=== PATIENT | female | born 1985 | race Caucasian/White ===

== ENCOUNTER 2018-05-26 11:12 | Emergency (ER) | payer MEDICARE, MEDICAID ==
[~2018-05-26] VITALS: Ht 162.6 cm; Wt 158.8 kg
[~2018-05-26 11:12] MED LIST: ALPR2TAB6 PO; ATOR40TA70 PO; BUSP15TA60 PO; FENT1PAT9 TD; HYDR-3820 PO; LOSA1TAB23 PO; MIRT15TA6 PO; NAPR-915 PO; OMEP20TA7 PO; OXYC-471 PO; PARO20TA5 PO; PARO30TA3 PO; PREG300C PO; PROM50SU10 RC; ROPI0.5T2 PO; SCOP1PAT11 TD; SITA100T12 PO; WARF10TA44 PO; WARF1TAB82 PO; ZOLP10TA5 PO
--- OUTSIDE RECORDS SUMMARY | 2018-05-26 11:17 | XMS REPORT | Continuity of Care Document ---
Author Author [facility] Organization [facility] Address Unknown Phone Unavailable Allergies Active Description Code Type Severity Reaction Onset Reported/Identified Relationship to Patient Clinical Status Yes metformin [id number] Drug Allergy Unknown N/A 08/21/2015 Yes spironolactone [id number] Drug Allergy Unknown N/A 08/21/2015 Medications There is no data. Problems Date Dx Coded Attending Type Code Diagnosis Diagnosed By 08/21/2015 MUNA LINK DO Ot E11.9 TYPE 2 DIABETES MELLITUS WITHOUT COMPLIC 08/21/2015 MUNA LINK DO Ot F12.10 CANNABIS ABUSE, UNCOMPLICATED 08/21/2015 MUNA LINK DO Ot F17.210 NICOTINE DEPENDENCE, CIGARETTES, UNCOMPL 08/21/2015 MUNA LINK DO Ot F19.10 OTHER PSYCHOACTIVE SUBSTANCE ABUSE, UNCO 08/21/2015 MUNA LINK DO Ot I10 ESSENTIAL (PRIMARY) HYPERTENSION 08/21/2015 MUNA LINK DO Ot K76.0 FATTY (CHANGE OF) LIVER, NOT ELSEWHERE C 08/21/2015 MUNA LINK DO Ot R10.13 EPIGASTRIC PAIN 08/21/2015 MUNA LINK DO Ot R11.2 NAUSEA WITH VOMITING, UNSPECIFIED 08/21/2015 MUNA LINK DO Ot R16.1 SPLENOMEGALY, NOT ELSEWHERE CLASSIFIED Procedures There is no data. Results There is no data. Encounters ACCT No. Visit Date/Time Discharge Status Pt. Type Provider Facility Loc./Unit Complaint [id number] 08/21/2015 19:55:00 08/21/2015 22:59:00 DIS Emergency MUNA LINK DO [facility] ER
--- NOTE | 2018-05-26 11:23 | ED Chest Pain ---
General Chief Complaint: Neurological Problems Stated Complaint: SEIZURE Source: patient, EMS Exam Limitations: no limitations History of Present Illness Date Seen by Provider: May 26, 2018 Time Seen by Provider: 11:19 Initial Comments Patient is a 32-year-old female who is brought into the emergency room by [facility] for reports of a possible seizure. She ambulated from the EMS truck into the exam room without difficulty. She reports she is feeling fine at this time but around 9:30 this morning she started to have some shortness of breath and substernal chest pain while watching [employer] videos, she denies that the chest pain radiated anywhere. She reports that she felt tingling and static in her fingers and in her face prior to this episode but still has the symptoms on arrival. She reports that the chest pain and shortness of breath has resolved. The patient's family reports that they thought she was having a seizure because her hands were shaking. She reports that she has a long history of anxiety and believes this was a panic attack. Timing/Duration: 1-3 hours Location: substernal, central Allergies and Home Medications Allergies Coded Allergies: metformin (Verified Allergy, Unknown, 08/21/15) spironolactone (Verified Allergy, Unknown, 08/21/15) Home Medications Alprazolam 2 Mg Tablet, 2 MG PO Q6H PRN for ANXIETY, (Reported) Atorvastatin Calcium 40 Mg Tablet, 40 MG PO DAILY, (Reported) Buspirone HCl 15 Mg Tablet, 15 MG PO TID, (Reported) Fentanyl 1 Each Patch.td72, 50 MCG TD Q72H, (Reported) Hydrocodone/Acetaminophen 1 Each Tablet, 1 EACH PO Q6H, (Reported) Losartan/Hydrochlorothiazide 1 Each Tablet, 1 EACH PO DAILY, (Reported) Mirtazapine 15 Mg Tablet, 15 MG PO HS, (Reported) Naproxen 500 Mg Tablet, 500 MG PO BID, (Reported) Omeprazole 20 Mg Tablet.dr, 20 MG PO BID, (Reported) Oxycodone HCl/Acetaminophen 1 Each Tablet, 1 EACH PO Q6H, (Reported) Paroxetine HCl 30 Mg Tablet, 30 MG PO DAILY, (Reported) Paroxetine HCl 20 Mg Tablet, 20 MG PO DAILY, (Reported) Pregabalin 300 Mg Capsule, 300 MG PO Q12H, (Reported) Promethazine HCl 50 Mg Supp.rect, 50 MG RC Q4H Prescribed by: MUNA LINK on 08/21/152217 Ropinirole HCl 0.5 Mg Tablet, 0.5 MG PO Q8H, (Reported) Scopolamine 1 Each Patch.td72, 1 EACH TD Q72 HOURS Prescribed by: MUNA LINK on 08/21/152217 Sitagliptin Phosphate 100 Mg Tablet, 100 MG PO DAILY, (Reported) Warfarin Sodium 10 Mg Tablet, 10 MG PO DAILY, (Reported) Warfarin Sodium 1 Mg Tablet, 3 MG PO DAILY, (Reported) Zolpidem Tartrate 10 Mg Tablet, 10 MG PO HS PRN for INSOMNIA, (Reported) Patient Home Medication List Home Medication List Reviewed: Yes Review of Systems Review of Systems Constitutional: no symptoms reported, see HPI Respiratory: See HPI, Shortness of Air Cardiovascular: See HPI, Chest Pain Psychiatric/Neurological: See HPI, Tingling (hands bilat and lips) All Other Systems Reviewed Negative Unless Noted: Yes Past Akgembc-Emipdv-Ixhvax Hx Past Med/Social Hx: Reviewed Nursing Past Med/Soc Hx Past Medical History Gallbladder Pulmonary Embolism High Cholesterol, Hypertension Stroke Reproductive Disorders: Yes Female Reproductive Disorders: Endometriosis, Polycystic Ovarian Dis Gastroesophageal Reflux, Ulcer Fibromyalgia Diabetes, Insulin dep Anxiety, ODD, Depression Adverse Reaction/Blood Tranf: No Family Medical History Reviewed Nursing Family Hx Physical Exam Vital Signs Vital Signs - First Documented Capillary Refill : Height, Weight, BMI Height: 5'5" Weight: 420lbs. oz. 190.853648tm; 69.88 BMI Method:Stated General Appearance: No Apparent Distress, WD/WN, Anxious HEENT: PERRL/EOMI, TMs Normal, Normal ENT Inspection, Pharynx Normal Neck: Full Range of Motion, Normal Inspection, Non Tender Respiratory: Chest Non Tender, Lungs Clear, Normal Breath Sounds, No Accessory Muscle Use, No Respiratory Distress Cardiovascular: Regular Rate, Rhythm, No Edema, No Gallop, No JVD, No Murmur, Normal Peripheral Pulses Gastrointestinal: Normal Bowel Sounds, No Organomegaly, No Pulsatile Mass, Non Tender, Soft Neurologic/Psychiatric: Alert, Oriented x3, Normal Mood/Affect Skin: Normal Color, Warm/Dry Progress/Results/Core Measures Results/Orders Lab Results Laboratory Tests Test 05/26/18 11:38 05/26/18 13:13 Range/Units White Blood Count 9.4 4.3-11.0 10^3/uL Red Blood Count 5.31 4.35-5.85 10^6/uL Hemoglobin 13.1 11.5-16.0 G/DL Hematocrit 41 35-52 % Mean Corpuscular Volume 76 L 80-99 FL Mean Corpuscular Hemoglobin 25 25-34 PG Mean Corpuscular Hemoglobin Concent 32 32-36 G/DL Red Cell Distribution Width 18.5 H 10.0-14.5 % Platelet Count 327 130-400 10^3/uL Mean Platelet Volume 9.2 7.4-10.4 FL Neutrophils (%) (Auto) 60 42-75 % Lymphocytes (%) (Auto) 31 12-44 % Monocytes (%) (Auto) 5 0-12 % Eosinophils (%) (Auto) 4 0-10 % Basophils (%) (Auto) 0 0-10 % Neutrophils # (Auto) 5.6 1.8-7.8 X 10^3 Lymphocytes # (Auto) 2.9 1.0-4.0 X 10^3 Monocytes # (Auto) 0.5 0.0-1.0 X 10^3 Eosinophils # (Auto) 0.4 H 0.0-0.3 10^3/uL Basophils # (Auto) 0.0 0.0-0.1 10^3/uL Prothrombin Time 13.0 12.2-14.7 SEC INR Comment 1.0 0.8-1.4 Activated Partial Thromboplast Time 25 24-35 SEC Sodium Level 142 135-145 MMOL/L Potassium Level 3.9 3.6-5.0 MMOL/L Chloride Level 105 98-107 MMOL/L Carbon Dioxide Level 25 21-32 MMOL/L Anion Gap 12 5-14 MMOL/L Blood Urea Nitrogen 14 7-18 MG/DL Creatinine 0.97 0.60-1.30 MG/DL Estimat Glomerular Filtration Rate > 60 BUN/Creatinine Ratio 14 Glucose Level 212 H 70-105 MG/DL Calcium Level 8.9 8.5-10.1 MG/DL Corrected Calcium 9.0 8.5-10.1 MG/DL Magnesium Level 1.8 1.8-2.4 MG/DL Total Bilirubin 0.5 0.1-1.0 MG/DL Aspartate Amino Transf (AST/SGOT) 14 5-34 U/L Alanine Aminotransferase (ALT/SGPT) 17 0-55 U/L Alkaline Phosphatase 67 40-136 U/L Myoglobin 63.1 10.0-92.0 NG/ML Troponin I < 0.30 < 0.30 <0.30 NG/ML Total Protein 6.9 6.4-8.2 GM/DL Albumin 3.9 3.2-4.5 GM/DL My Orders Orders - BERNHUMA,TODD Cbc With Automated Diff (05/26/18 11:23) Magnesium (05/26/18 11:23) Chest 1 View, Ap/Pa Only (05/26/18 11:23) Ekg Tracing (05/26/18 11:23) Cardiac Profile 1 (05/26/18 11:23) Comprehensive Metabolic Panel (05/26/18 11:23) Myoglobin Serum (05/26/18 11:23) Protime With Inr (05/26/18 11:23) Partial Thromboplastin Time (05/26/18 11:23) O2 (05/26/18 11:23) Monitor-Rhythm Ecg Trace Only (05/26/18 11:23) Saline Lock/Iv-Start (05/26/18 11:23) Aspirin Chewable Tablet (Baby Aspirin Ch (05/26/18 11:45) Aspirin Chewable Tablet (Baby Aspirin Ch (05/26/18 11:41) Troponin I (05/26/18 13:03) Medications Given in ED Vital Signs/I&O 05/26/18 05/26/18 05/26/18 11:16 11:16 14:39 Temp 98.3 98.5 Pulse 97 80 Resp 22 20 B/P (MAP) 128/52 (77) 122/97 (105) Pulse Ox 98 97 97 O2 Delivery Room Air Room Air Room Air Progress Progress Note : Time: 13:06 Progress Note I have seen and evaluated the patient. I will be repeating her troponin at this time, this will be 4 hours after the time of onset of chest pain.. She remains pain-free at this time and the tingling in her fingers have resolved. Initial ECG Impression Date: May 26, 2018 Initial ECG Impression Time: 11:33 Initial ECG Rate: 95 Initial ECG Rhythm: Normal Sinus Initial ECG Intervals: Normal Initial ECG Impression: Normal Diagnostic Imaging Diagonstic Imaging: Xray Plain Films/CT/US/NM/MRI: chest Comments [place], [place] NAME: GUS QUAN [facility] REC#: [id number] PT STATUS: REG ER : 1985 PHYSICIAN: TODD SCHMIDT ADMIT DATE: 05/26/18/ER Draft Date of Exam:05/26/18 CHEST 1 VIEW, AP/PA ONLY INDICATION: Seizure Frontal chest obtained at 1214 hrs pm, and compared with 08/21/2015. Heart is borderline in size. There is central vascular congestion. There is no focal infiltrate or pneumothorax or pleural fluid. IMPRESSION: Borderline heart size with central vascular congestion. No consolidation or pleural fluid. Dictated on workstation # [id number] Dict: 05/26/18 1223 Trans: 05/26/18 1226 [facility] [id number] Interpreted by: RENU WHITAKER MD Electronically signed by: Reviewed: Reviewed by Me Departure Impression Primary Impression: Anxiety Disposition: 01 HOME, SELF-CARE Condition: Stable/Unchanged Departure-Patient Inst. Decision time for Depature: 13:20 Referrals: NO,LOCAL PHYSICIAN (PCP) Primary Care Physician Patient Instructions: Generalized Anxiety Disorder Add. Discharge Instructions: Resume your home medications as previously prescribed. Follow-up with your primary care provider within 1 week for recheck. Return back to the emergency room for any worsening symptoms or concerns as needed. All discharge instructions reviewed with patient and/or family. Voiced understanding. TODD SCHMIDT May 26, 2018 11:23
[2018-05-26] MEDS ORDERED: ASPIRIN 81 MG CHEW (CHILDREN'S ASA) ONE (11:41)
[2018-05-26] MEDS ORDERED: ASPIRIN 81 MG CHEW (CHILDREN'S ASA) PO ONE (11:45)
[2018-05-26 11:48] LABS: BASOPHILS % (AUTO) 0 % (0-10); EOSINOPHILS # (AUTO) 0.4 10^3/uL (0.0-0.3); EOSINOPHILS % (AUTO) 4 % (0-10); HEMATOCRIT 41 % (35-52); HEMOGLOBIN 13.1 G/DL (11.5-16.0); LYMPHOCYTES # (AUTO) 2.9 X 10^3 (1.0-4.0); LYMPHOCYTES % (AUTO) 31 % (12-44); MEAN CORPUSCULAR HEMOGLOBIN 25 PG (25-34); MEAN CORPUSCULAR HGB CONC 32 G/DL (32-36); MEAN CORPUSCULAR VOLUME 76 FL (80-99); MEAN PLATELET VOLUME 9.2 FL (7.4-10.4); MONOCYTES # (AUTO) 0.5 X 10^3 (0.0-1.0); MONOCYTES % (AUTO) 5 % (0-12); NEUTROPHILS # (AUTO) 5.6 X 10^3 (1.8-7.8); NEUTROPHILS % (AUTO) 60 % (42-75); PLATELET COUNT 327 10^3/uL (130-400); RED BLOOD COUNT 5.31 10^6/uL (4.35-5.85); RED CELL DISTRIBUTION WIDTH 18.5 % (10.0-14.5); WHITE BLOOD COUNT 9.4 10^3/uL (4.3-11.0)
[2018-05-26 12:08] LABS: ALANINE AMINOTRANSFERASE 17 U/L (0-55); ALBUMIN 3.9 GM/DL (3.2-4.5); ALKALINE PHOSPHATASE 67 U/L (40-136); BILIRUBIN,TOTAL 0.5 MG/DL (0.1-1.0); BUN/CREATININE RATIO 14; CALCIUM 8.9 MG/DL (8.5-10.1); CARBON DIOXIDE 25 MMOL/L (21-32); CHLORIDE 105 MMOL/L (98-107); CREATININE SERUM 0.97 MG/DL (0.60-1.30); GFR ESTIMATED > 60; GLUCOSE 212 MG/DL (70-105); MAGNESIUM 1.8 MG/DL (1.8-2.4); POTASSIUM 3.9 MMOL/L (3.6-5.0); SODIUM 142 MMOL/L (135-145); TOTAL PROTEIN 6.9 GM/DL (6.4-8.2)
[2018-05-26 12:14] LABS: MYOGLOBIN SERUM 63.1 NG/ML (10.0-92.0)
--- NOTE | 2018-05-26 12:26 | Diagnostic Imaging Report ---
INDICATION: Seizure Frontal chest obtained at 1214 hrs pm, and compared with 08/21/2015. Heart is borderline in size. There is central vascular congestion. There is no focal infiltrate or pneumothorax or pleural fluid. IMPRESSION: Borderline heart size with central vascular congestion. No consolidation or pleural fluid. Dictated by: Dictated on workstation # [id number]
[2018-05-26 14:39] VITALS: BP 122/97
== END 2018-05-26 14:39 | disposition home or self-care (01) ==
LOC: EDUNIT# 11:12 → ER 11:14
DX: F41.9 Anxiety disorder, unspecified (principal); E78.00 Pure hypercholesterolemia, unspecified; I10 Essential (primary) hypertension; E11.9 Type 2 diabetes mellitus without complications; F32.9 Major depressive disorder, single episode, unspecified; F91.3 Oppositional defiant disorder; K21.9 Gastro-esophageal reflux disease without esophagitis; Z86.73 Personal history of transient ischemic attack (TIA), and cerebral infarction without residual deficits; Z88.8 Allergy status to other drugs, medicaments and biological substances; Z79.01 Long term (current) use of anticoagulants; Z86.711 Personal history of pulmonary embolism; Z87.19 Personal history of other diseases of the digestive system; Z87.448 Personal history of other diseases of urinary system
CPT/HCPCS: 36415; 71045; 80053; 83735; 83874; 84484; 85025; 85610; 85730; 93041

== ENCOUNTER 2018-06-03 10:05 | Emergency (ER) | payer MEDICARE, MEDICAID ==
[~2018-06-03] VITALS: Ht 165.1 cm; Wt 181.4 kg
--- NOTE | 2018-06-03 10:12 | ED Abdominal Pain ---
General Source of Information: Patient Exam Limitations: No Limitations History of Present Illness Date Seen by Provider: Jun 03, 2018 Time Seen by Provider: 10:10 Initial Comments To ER jed with reports of "severe gastroparesis and ulcers". She's had abdominal pain the left upper abdomen nausea and vomiting for the past 24 hours with reduced appetite. She reports a history of GERD, "ulcers", gastroparesis, chronic abdominal pain, fibromyalgia. She has oxycodone and morphine at home.She was unable to take her coumadin last night (history of PE). Severity/Quality: Moderate Location: LUQ Radiation: No Radiation Activities at Onset: None Associated Symptoms: Nausea/Vomiting Allergies and Home Medications Allergies Coded Allergies: metformin (Verified Allergy, Unknown, 08/21/15) spironolactone (Verified Allergy, Unknown, 08/21/15) Home Medications Alprazolam 2 Mg Tablet, 2 MG PO Q6H PRN for ANXIETY, (Reported) Atorvastatin Calcium 40 Mg Tablet, 40 MG PO DAILY, (Reported) Buspirone HCl 15 Mg Tablet, 15 MG PO TID, (Reported) Fentanyl 1 Each Patch.td72, 50 MCG TD Q72H, (Reported) Hydrocodone/Acetaminophen 1 Each Tablet, 1 EACH PO Q6H, (Reported) Losartan/Hydrochlorothiazide 1 Each Tablet, 1 EACH PO DAILY, (Reported) Mirtazapine 15 Mg Tablet, 15 MG PO HS, (Reported) Naproxen 500 Mg Tablet, 500 MG PO BID, (Reported) Omeprazole 20 Mg Tablet.dr, 20 MG PO BID, (Reported) Oxycodone HCl/Acetaminophen 1 Each Tablet, 1 EACH PO Q6H, (Reported) Paroxetine HCl 30 Mg Tablet, 30 MG PO DAILY, (Reported) Paroxetine HCl 20 Mg Tablet, 20 MG PO DAILY, (Reported) Pregabalin 300 Mg Capsule, 300 MG PO Q12H, (Reported) Prochlorperazine Maleate 25 Mg Supp.rect, 25 MG RC Q8H PRN for NAUSEA/VOMITING Prescribed by: JORGE THORNTON on 06/03/18 1148 Promethazine HCl 50 Mg Supp.rect, 50 MG RC Q4H Prescribed by: MUNA LINK on 08/21/158 Ropinirole HCl 0.5 Mg Tablet, 0.5 MG PO Q8H, (Reported) Scopolamine 1 Each Patch.td72, 1 EACH TD Q72 HOURS Prescribed by: MUNA LINK on 08/21/15 9808 Sitagliptin Phosphate 100 Mg Tablet, 100 MG PO DAILY, (Reported) Warfarin Sodium 10 Mg Tablet, 10 MG PO DAILY, (Reported) Warfarin Sodium 1 Mg Tablet, 3 MG PO DAILY, (Reported) Zolpidem Tartrate 10 Mg Tablet, 10 MG PO HS PRN for INSOMNIA, (Reported) Patient Home Medication List Home Medication List Reviewed: Yes Review of Systems Review of Systems Constitutional: see HPI EENTM: No Symptoms Reported Respiratory: No Symptoms Reported Cardiovascular: No Symptoms Reported Gastrointestinal: See HPI, Abdominal Pain, Nausea, Vomiting Genitourinary: No Symptoms Reported Musculoskeletal: no symptoms reported Skin: no symptoms reported Psychiatric/Neurological: No Symptoms Reported Endocrine: No Symptoms Reported Past Qkixbwe-Jynrdb-Wydfsa Hx Patient Social History 2nd Hand Smoke Exposure: No Past Medical History Gallbladder Pulmonary Embolism High Cholesterol, Hypertension Stroke Reproductive Disorders: Yes Female Reproductive Disorders: Endometriosis, Polycystic Ovarian Dis Gastroesophageal Reflux, Ulcer Fibromyalgia Diabetes, Insulin dep Anxiety, ODD, Depression Adverse Reaction/Blood Tranf: No Physical Exam Vital Signs Vital Signs - First Documented 06/03/18 10:20 Temp 98.5 Pulse 100 Resp 20 B/P (MAP) 142/119 (127) Pulse Ox 96 Capillary Refill : Height/Weight/BMI Height: 5'4.00" Weight: 350lbs. oz. 158.497332dd; 69.88 BMI Method:Stated General Appearance: WD/WN, moderate distress (moaning loudly on arrival, breathing rapidly. Insists that she is not out of her morphine or oxycodone, however K tracks would suggest that she has recently run out within the past 2- 3 days.), obese HEENT: PERRL/EOMI, normal ENT inspection Respiratory: no respiratory distress, no accessory muscle use Cardiovascular: no murmur, tachycardia Gastrointestinal: normal bowel sounds, soft, tenderness (left upper) Extremities: normal range of motion, non-tender Neurologic/Psychiatric: alert, normal mood/affect, oriented x 3 Skin: normal color, warm/dry Progress/Results/Core Measures Results/Orders Lab Results Laboratory Tests Test 06/03/18 10:15 06/03/18 11:17 Range/Units White Blood Count 12.5 H 4.3-11.0 10^3/uL Red Blood Count 6.00 H 4.35-5.85 10^6/uL Hemoglobin 14.4 11.5-16.0 G/DL Hematocrit 45 35-52 % Mean Corpuscular Volume 74 L 80-99 FL Mean Corpuscular Hemoglobin 24 L 25-34 PG Mean Corpuscular Hemoglobin Concent 32 32-36 G/DL Red Cell Distribution Width 19.1 H 10.0-14.5 % Platelet Count 483 H 130-400 10^3/uL Mean Platelet Volume 9.3 7.4-10.4 FL Neutrophils (%) (Auto) 71 42-75 % Lymphocytes (%) (Auto) 21 12-44 % Monocytes (%) (Auto) 5 0-12 % Eosinophils (%) (Auto) 3 0-10 % Basophils (%) (Auto) 0 0-10 % Neutrophils # (Auto) 8.9 H 1.8-7.8 X 10^3 Lymphocytes # (Auto) 2.6 1.0-4.0 X 10^3 Monocytes # (Auto) 0.6 0.0-1.0 X 10^3 Eosinophils # (Auto) 0.4 H 0.0-0.3 10^3/uL Basophils # (Auto) 0.0 0.0-0.1 10^3/uL Prothrombin Time 15.5 H 12.2-14.7 SEC INR Comment 1.2 0.8-1.4 Sodium Level 141 135-145 MMOL/L Potassium Level 4.1 3.6-5.0 MMOL/L Chloride Level 108 H 98-107 MMOL/L Carbon Dioxide Level 20 L 21-32 MMOL/L Anion Gap 13 5-14 MMOL/L Blood Urea Nitrogen 15 7-18 MG/DL Creatinine 0.79 0.60-1.30 MG/DL Estimat Glomerular Filtration Rate > 60 BUN/Creatinine Ratio 19 Glucose Level 236 H 70-105 MG/DL Calcium Level 9.6 8.5-10.1 MG/DL Corrected Calcium 9.4 8.5-10.1 MG/DL Total Bilirubin 0.9 0.1-1.0 MG/DL Aspartate Amino Transf (AST/SGOT) 17 5-34 U/L Alanine Aminotransferase (ALT/SGPT) 16 0-55 U/L Alkaline Phosphatase 66 40-136 U/L Total Protein 7.4 6.4-8.2 GM/DL Albumin 4.2 3.2-4.5 GM/DL Lipase 6 L 8-78 U/L Serum Test, Qualitative NEGATIVE NEGATIVE Urine Color KELSEY H Urine Clarity VERY CLOUDY H Urine pH 6.5 5-9 Urine Specific [place] 1.020 1.016-1.022 Urine Protein 2+ H NEGATIVE Urine Glucose (UA) 3+ H NEGATIVE Urine Ketones 1+ H NEGATIVE Urine Nitrite NEGATIVE NEGATIVE Urine Bilirubin NEGATIVE NEGATIVE Urine Urobilinogen 1 NORMAL MG/DL Urine Leukocyte Esterase 1+ H NEGATIVE Urine RBC (Auto) 5+ H NEGATIVE Urine RBC >100 H /HPF Urine WBC 2-5 /HPF Urine Squamous Epithelial Cells 5-10 /HPF Urine Crystals NONE /LPF Urine Bacteria FEW H /HPF Urine Casts NONE /LPF Urine Mucus MODERATE H /LPF Urine Culture Indicated NO Urine Opiates Screen NEGATIVE NEGATIVE Urine Oxycodone Screen POSITIVE H NEGATIVE Urine Methadone Screen NEGATIVE NEGATIVE Urine Propoxyphene Screen NEGATIVE NEGATIVE Urine Barbiturates Screen NEGATIVE NEGATIVE Ur Tricyclic Antidepressants Screen POSITIVE H NEGATIVE Urine Phencyclidine Screen NEGATIVE NEGATIVE Urine Amphetamines Screen NEGATIVE NEGATIVE Urine Methamphetamines Screen NEGATIVE NEGATIVE Urine Benzodiazepines Screen POSITIVE H NEGATIVE Urine Cocaine Screen NEGATIVE NEGATIVE Urine Cannabinoids Screen POSITIVE H NEGATIVE My Orders Orders - JORGE THORNTON [employer] Cbc With Automated Diff (06/03/18 10:07) Comprehensive Metabolic Panel (06/03/18 10:07) Lipase (06/03/18 10:07) Ua Culture If Indicated (06/03/18 10:07) Drug Screen Stat (Urine) (06/03/18 10:07) Hcg,Qualitative Serum (06/03/18 10:07) Ns Iv 1000 Ml (Sodium Chloride 0.9%) (06/03/18 10:15) Diphenhydramine Injection (Benadryl Inje (06/03/18 10:15) Antacid Suspension (Mylanta Suspension (06/03/18 10:15) Lidocaine 2% Viscous 15 Ml (Xylocaine Vi (06/03/18 10:15) Ns Iv 1000 Ml (Sodium Chloride 0.9%) (06/03/18 10:15) Prochlorperazine Injection (Compazine In (06/03/18 10:15) Protime With Inr (06/03/18 10:18) Ct Abdomen/Pelvis W (06/03/18 10:31) Iohexol Injection (Omnipaque 350 Mg/Ml 1 (06/03/18 10:45) Contrast Received (Contrast Received) (06/03/18 10:45) Ns (Ivpb) (Sodium Chloride 0.9% Ivpb Bag (06/03/18 10:45) Medications Given in ED Current Medications Medications Dose Ordered Sig/Becki Route Start Time Stop Time Status Last Admin Dose Admin Al Hydrox/Mg Hydrox/Simethicone 30 ml ONCE ONCE PO 06/03/18 10:15 06/03/18 10:16 DC 06/03/18 10:34 30 ML Diphenhydramine HCl 25 mg ONCE ONCE IVP 06/03/18 10:15 06/03/18 10:16 DC 06/03/18 10:34 25 MG Iohexol 100 ml ONCE ONCE IV 06/03/18 10:45 06/03/18 10:46 DC 06/03/18 10:59 100 ML Lidocaine HCl 10 ml ONCE ONCE PO 06/03/18 10:15 06/03/18 10:16 DC 06/03/18 10:34 10 ML Prochlorperazine Edisylate 10 mg ONCE ONCE IV 06/03/18 10:15 06/03/18 10:16 DC 06/03/18 10:35 10 MG Sodium Chloride 100 ml ONCE ONCE IV 06/03/18 10:45 06/03/18 10:46 DC 06/03/18 10:59 80 ML Vital Signs/I&O 06/03/18 10:20 Temp 98.5 Pulse 100 Resp 20 B/P (MAP) 142/119 (127) Pulse Ox 96 Diagnostic Imaging Diagonstic Imaging: CT Comments NAME: GUS QUAN [facility] REC#: [id number] PT STATUS: REG ER : 1985 PHYSICIAN: JORGE THORNTON APRN ADMIT DATE: 06/03/18/ER Draft Date of Exam:06/03/18 CT ABDOMEN/PELVIS W PROCEDURE: CT abdomen and pelvis with contrast. TECHNIQUE: Multiple contiguous axial images were obtained through the abdomen and pelvis after administration of intravenous contrast. INDICATION: Abdominal pain. Decreased appetite. COMPARISON: CT of the abdomen and pelvis with IV contrast 08/21/2015. FINDINGS: Cholecystectomy. Indeterminate 1.7 cm nodule in the right adrenal gland has grown since the prior exam when it measured up to 1.3 cm. The liver, pancreas, spleen, left adrenal, kidneys, collecting systems and bladder are negative. Normal appendix. Reproductive structures are grossly unremarkable. No free intraperitoneal air or fluid. No lymphadenopathy. No evidence of bowel obstruction. No acute osseous findings. IMPRESSION: 1. No acute CT findings in the abdomen or pelvis. 2. Right adrenal nodule measures up to 1.7 cm and has grown since the 2016 exam when it measured up to 1.3 cm. Although this most likely represents a benign adrenal adenoma, it is indeterminate on this exam. This could be better evaluated with dedicated multiphase contrast-enhanced CT. Dictated on workstation # [id number] Dict: 06/03/18 1133 Trans: 06/03/18 1142 DINH [id number] Interpreted by: JONN LAM MD Electronically signed by: Departure Communication (Admissions) 3518-states that she is feeling quite a bit better. She has drank 2 bottles of water without vomiting or abdominal pain. Impression Primary Impression: Nausea and vomiting Qualified Codes: R11.2 - Nausea with vomiting, unspecified Additional Impression: abdominal pain Disposition: HOME, SELF-CARE Condition: Stable Departure-Patient Inst. Decision time for Depature: 11:12 Referrals: NO,LOCAL PHYSICIAN (PCP) Primary Care Physician Patient Instructions: Acute Abdomen (Belly Pain), Adult (DC) Add. Discharge Instructions: 1. Abdominal pain nausea and vomiting is at least partially related to marijuana use. In some patients this causes a recurrence of nausea vomiting and abdominal pain relieved by hot showers. This is seen in people who smoked marijuana several times per week. Symptoms tend to last 2-3 days at a time and can be completely resolved by stopping the marijuana use. In the meantime, application of capsaicin cream (which you can purchase at [employer] or [employer] ) to the front of her abdomen and will help with symptoms such as pain and vomiting temporarily. Follow-up with your doctor next week. Scripts Prochlorperazine Maleate (Compazine) 25 Mg Supp.rect 25 MG RC Q8H PRN for NAUSEA/VOMITING, #14 SUPP.RECT Prov: JORGE THORNTON [employer] 06/03/18 JORGE THORNTON [employer]IVER Jun 03, 2018 10:12
[2018-06-03] MEDS ORDERED: ANTACID SUSP 30 ML UDC (MYLANTA) PO ONE (10:15)
[2018-06-03] MEDS ORDERED: PROCHLORPERAZINE 10 MG/2ML INJ (COMPAZINE) IV ONE (10:15)
[2018-06-03] MEDS ORDERED: NS IV 1000 ML 1,000 ML IV SCH ×2 (10:15)
[2018-06-03] MEDS ORDERED: LIDOCAINE 2% VISCOUS 15 ML UDC PO ONE (10:15)
[2018-06-03] MEDS ORDERED: diphenhydrAMINE 50 MG/ML INJ (BENADRYL) IVP ONE (10:15)
[2018-06-03 10:27] LABS: BASOPHILS % (AUTO) 0 % (0-10); EOSINOPHILS # (AUTO) 0.4 10^3/uL (0.0-0.3); EOSINOPHILS % (AUTO) 3 % (0-10); HEMATOCRIT 45 % (35-52); HEMOGLOBIN 14.4 G/DL (11.5-16.0); LYMPHOCYTES # (AUTO) 2.6 X 10^3 (1.0-4.0); LYMPHOCYTES % (AUTO) 21 % (12-44); MEAN CORPUSCULAR HEMOGLOBIN 24 PG (25-34); MEAN CORPUSCULAR HGB CONC 32 G/DL (32-36); MEAN CORPUSCULAR VOLUME 74 FL (80-99); MEAN PLATELET VOLUME 9.3 FL (7.4-10.4); MONOCYTES # (AUTO) 0.6 X 10^3 (0.0-1.0); MONOCYTES % (AUTO) 5 % (0-12); NEUTROPHILS # (AUTO) 8.9 X 10^3 (1.8-7.8); NEUTROPHILS % (AUTO) 71 % (42-75); PLATELET COUNT 483 10^3/uL (130-400); RED CELL DISTRIBUTION WIDTH 19.1 % (10.0-14.5); WHITE BLOOD COUNT 12.5 10^3/uL (4.3-11.0)
[2018-06-03 10:45] LABS: INR 1.2 (0.8-1.4); PROTHROMBIN TIME PATIENT 15.5 SEC (12.2-14.7)
[2018-06-03] MEDS ORDERED: NS 100 ML (IVPB) BAG IV ONE (10:45)
[2018-06-03] MEDS ORDERED: RECEIVED CONTRAST (Hold Metformin) IV SCH (10:45)
[2018-06-03] MEDS ORDERED: IOHEXOL 350 MG/ML 100 ML (OMNIPAQUE 350) VIAL IV ONE (10:45)
[2018-06-03 10:53] LABS: ALANINE AMINOTRANSFERASE 16 U/L (0-55); ALBUMIN 4.2 GM/DL (3.2-4.5); ALKALINE PHOSPHATASE 66 U/L (40-136); BILIRUBIN,TOTAL 0.9 MG/DL (0.1-1.0); BUN/CREATININE RATIO 19; CALCIUM 9.6 MG/DL (8.5-10.1); CARBON DIOXIDE 20 MMOL/L (21-32); CHLORIDE 108 MMOL/L (98-107); CREATININE SERUM 0.79 MG/DL (0.60-1.30); GFR ESTIMATED > 60; GLUCOSE 236 MG/DL (70-105); LIPASE 6 U/L (8-78); POTASSIUM 4.1 MMOL/L (3.6-5.0); SODIUM 141 MMOL/L (135-145); TOTAL PROTEIN 7.4 GM/DL (6.4-8.2)
--- OUTSIDE RECORDS SUMMARY | 2018-06-03 10:56 | XMS REPORT | Continuity of Care Document ---
Author Author [facility] Organization [facility] Address Unknown Phone Unavailable Allergies Active Description Code Type Severity Reaction Onset Reported/Identified Relationship to Patient Clinical Status Yes metformin [id number] Drug Allergy Unknown N/A 08/21/2015 Yes spironolactone [id number] Drug Allergy Unknown N/A 08/21/2015 Medications There is no data. Problems Date Dx Coded Attending Type Code Diagnosis Diagnosed By 08/21/2015 MUNA LINK DO Ot E11.9 TYPE 2 DIABETES MELLITUS WITHOUT COMPLIC 08/21/2015 DANNI LINK DOA K Ot F12.10 CANNABIS ABUSE, UNCOMPLICATED 08/21/2015 DANNI LINK DOA K Ot F17.210 NICOTINE DEPENDENCE, CIGARETTES, UNCOMPL 08/21/2015 NIKOLAY DOUGHERTY MUNA K Ot F19.10 OTHER PSYCHOACTIVE SUBSTANCE ABUSE, UNCO 08/21/2015 NIKOLAY DOUGHERTY MUNA K Ot I10 ESSENTIAL (PRIMARY) HYPERTENSION 08/21/2015 NIKOLAY DOUGHERTY MUNA K Ot K76.0 FATTY (CHANGE OF) LIVER, NOT ELSEWHERE C 08/21/2015 NIKOLAY DOUGHERTY MUNA K Ot R10.13 EPIGASTRIC PAIN 08/21/2015 DANNI LINK DOA K Ot R11.2 NAUSEA WITH VOMITING, UNSPECIFIED 08/21/2015 DANNI LINK DOA K Ot R16.1 SPLENOMEGALY, NOT ELSEWHERE CLASSIFIED 05/29/2018 TODD SCHMIDT Ot E11.9 TYPE 2 DIABETES MELLITUS WITHOUT COMPLIC 05/29/2018 TODD SCHMIDT Ot E78.00 PURE HYPERCHOLESTEROLEMIA, UNSPECIFIED 05/29/2018 TODD SCHMIDT Ot F32.9 MAJOR DEPRESSIVE DISORDER, SINGLE EPISOD 05/29/2018 ARMIDA SCHMIDTIS Ot F41.9 ANXIETY DISORDER, UNSPECIFIED 05/29/2018 ARMIDA SCHMIDTIS Ot F91.3 OPPOSITIONAL DEFIANT DISORDER 05/29/2018 ARMIDA SCHMIDTIS Ot I10 ESSENTIAL (PRIMARY) HYPERTENSION 05/29/2018 TODD SCHMIDT Ot K21.9 GASTRO-ESOPHAGEAL REFLUX DISEASE WITHOUT 05/29/2018 TODD SCHMIDT Ot R25.9 UNSPECIFIED ABNORMAL INVOLUNTARY MOVEMEN 05/29/2018 TODD SCHMIDT Ot 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 Results Test Result Range Complete blood count (CBC) with automated white blood cell (WBC) differential - 05/26/18 11:38 Blood leukocytes automated count (number/volume) 9.4 10*3/uL 4.3-11.0 Blood erythrocytes automated count (number/volume) 5.31 10*6/uL 4.35-5.85 Venous blood hemoglobin measurement (mass/volume) 13.1 g/dL 11.5-16.0 Blood hematocrit (volume fraction) 41 % 35-52 Automated erythrocyte mean corpuscular volume 76 [foz_us] 80-99 Automated erythrocyte mean corpuscular hemoglobin (mass per erythrocyte) 25 pg 25-34 Automated erythrocyte mean corpuscular hemoglobin concentration measurement ( mass/volume) 32 g/dL 32-36 Automated erythrocyte distribution width ratio 18.5 % 10.0-14.5 Automated blood platelet count (count/volume) 327 10*3/uL 130-400 Automated blood platelet mean volume measurement 9.2 [foz_us] 7.4-10.4 Automated blood neutrophils/100 leukocytes 60 % 42-75 Automated blood lymphocytes/100 leukocytes 31 % 12-44 Blood monocytes/100 leukocytes 5 % 0-12 Automated blood eosinophils/100 leukocytes 4 % 0-10 Automated blood basophils/100 leukocytes 0 % 0-10 Blood neutrophils automated count (number/volume) 5.6 10*3 1.8-7.8 Blood lymphocytes automated count (number/volume) 2.9 10*3 1.0-4.0 Blood monocytes automated count (number/volume) 0.5 10*3 0.0-1.0 Automated eosinophil count 0.4 10*3/uL 0.0-0.3 Automated blood basophil count (count/volume) 0.0 10*3/uL 0.0-0.1 Comprehensive metabolic panel - 05/26/18 11:38 Serum or plasma sodium measurement (moles/volume) 142 mmol/L 135-145 Serum or plasma potassium measurement (moles/volume) 3.9 mmol/L 3.6-5.0 Serum or plasma chloride measurement (moles/volume) 105 mmol/L 98-107 Carbon dioxide 25 mmol/L 21-32 Serum or plasma anion gap determination (moles/volume) 12 mmol/L 5-14 Serum or plasma urea nitrogen measurement (mass/volume) 14 mg/dL 7-18 Serum or plasma creatinine measurement (mass/volume) 0.97 mg/dL 0.60-1.30 Serum or plasma urea nitrogen/creatinine mass ratio 14 NRG Serum or plasma creatinine measurement with calculation of estimated glomerular filtration rate > NRG Serum or plasma glucose measurement (mass/volume) 212 mg/dL 70-105 Serum or plasma calcium measurement (mass/volume) 8.9 mg/dL 8.5-10.1 Serum or plasma total bilirubin measurement (mass/volume) 0.5 mg/dL 0.1-1.0 Serum or plasma alkaline phosphatase measurement (enzymatic activity/volume) 67 U/L 40-136 Serum or plasma aspartate aminotransferase measurement (enzymatic activity/ volume) 14 U/L 5-34 Serum or plasma alanine aminotransferase measurement (enzymatic activity/volume ) 17 U/L 0-55 Serum or plasma protein measurement (mass/volume) 6.9 g/dL 6.4-8.2 Serum or plasma albumin measurement (mass/volume) 3.9 g/dL 3.2-4.5 CALCIUM CORRECTED 9.0 mg/dL 8.5-10.1 Magnesium - 05/26/18 11:38 Magnesium 1.8 mg/dL 1.8-2.4 Serum or plasma troponin i.cardiac measurement (mass/volume) - 05/26/18 11:38 Serum or plasma troponin i.cardiac measurement (mass/volume) < ng/ mL <0.30 PT panel in platelet poor plasma by coagulation assay - 05/26/18 11:38 Prothrombin time (PT) in platelet poor plasma by coagulation assay 13.0 s 12.2-14.7 INR in platelet poor plasma or blood by coagulation assay 1.0 0.8-1.4 Activated partial thromboplastin time (aPTT) in platelet poor plasma bycoagulation assay - 05/26/18 11:38 Activated partial thromboplastin time (aPTT) in platelet poor plasma bycoagulation assay 25 s 24-35 Myoglobin, serum - 05/26/18 11:38 Myoglobin, serum 63.1 ng/mL 10.0-92.0 Serum or plasma troponin i.cardiac measurement (mass/volume) - 05/26/18 13:13 Serum or plasma troponin i.cardiac measurement (mass/volume) < ng/ mL <0.30 Encounters ACCT No. Visit Date/Time Discharge Status Pt. Type Provider Facility Loc./Unit Complaint [id number] 05/26/2018 11:14:00 05/26/2018 14:39:00 DIS Outpatient TODD SCHMIDT [facility] ER SEIZURE [id number] 08/21/2015 19:55:00 08/21/2015 22:59:00 DIS Emergency MUNA LINK DO [facility] ER ABDOMINAL PAIN
[2018-06-03 11:22] LABS: BILIRUBIN,URINE NEGATIVE (NEGATIVE); CLARITY,URINE VERY CLOUDY; COLOR,URINE AMBER; GLUCOSE, URINE (UA) 3+ (NEGATIVE); KETONES,URINE 1+ (NEGATIVE); LEUKOCYTE ESTERASE ,URINE 1+ (NEGATIVE); NITRITE,URINE NEGATIVE (NEGATIVE); PH,URINE 6.5 (5-9); PROTEIN,URINE 2+ (NEGATIVE); UROBILINOGEN,URINE 1 MG/DL (NORMAL)
[2018-06-03 11:36] LABS: AMPHETAMINE SCREEN, URINE NEGATIVE (NEGATIVE); BARBITURATE SCREEN URINE NEGATIVE (NEGATIVE); BENZODIAZEPINES SCREEN URINE POSITIVE (NEGATIVE); CANNABINOID SCREEN, URINE POSITIVE (NEGATIVE); COCAINE SCREEN URINE NEGATIVE (NEGATIVE); METHADONE STAT NEGATIVE (NEGATIVE); METHAMPHETAMINE SCREEN URINE S NEGATIVE (NEGATIVE); OPIATE SCREEN URINE NEGATIVE (NEGATIVE); OXYCODONE STAT POSITIVE (NEGATIVE); TRICYCLIC ANTIDEPRESSANTS SCRE POSITIVE (NEGATIVE)
[2018-06-03 11:37] LABS: PROPOXYPHENE STAT NEGATIVE (NEGATIVE)
[2018-06-03 11:41] LABS: BACTERIA,URINE FEW /HPF; RBC,URINE >100 /HPF
--- NOTE | 2018-06-03 11:42 | Diagnostic Imaging Report ---
PROCEDURE: CT abdomen and pelvis with contrast. TECHNIQUE: Multiple contiguous axial images were obtained through the abdomen and pelvis after administration of intravenous contrast. INDICATION: Abdominal pain. Decreased appetite. COMPARISON: CT of the abdomen and pelvis with IV contrast 08/21/2015. FINDINGS: Cholecystectomy. Indeterminate 1.7 cm nodule in the right adrenal gland has grown since the prior exam when it measured up to 1.3 cm. The liver, pancreas, spleen, left adrenal, kidneys, collecting systems and bladder are negative. Normal appendix. Reproductive structures are grossly unremarkable. No free intraperitoneal air or fluid. No lymphadenopathy. No evidence of bowel obstruction. No acute osseous findings. IMPRESSION: 1. No acute CT findings in the abdomen or pelvis. 2. Right adrenal nodule measures up to 1.7 cm and has grown since the 2016 exam when it measured up to 1.3 cm. Although this most likely represents a benign adrenal adenoma, it is indeterminate on this exam. This could be better evaluated with dedicated multiphase contrast-enhanced CT. Dictated by: Dictated on workstation # [id number]
[2018-06-03] MEDS ORDERED: PROC25SU27 RC (11:48)
[2018-06-03 11:59] VITALS: BP 136/99
== END 2018-06-03 11:58 | disposition home or self-care (01) ==
LOC: EDUNIT# 10:05 → ER 10:07
DX: R11.2 Nausea with vomiting, unspecified (principal); R10.12 Left upper quadrant pain; K21.9 Gastro-esophageal reflux disease without esophagitis; E78.00 Pure hypercholesterolemia, unspecified; I10 Essential (primary) hypertension; E11.9 Type 2 diabetes mellitus without complications; F41.9 Anxiety disorder, unspecified; F32.9 Major depressive disorder, single episode, unspecified; F91.3 Oppositional defiant disorder; Z87.448 Personal history of other diseases of urinary system; Z86.73 Personal history of transient ischemic attack (TIA), and cerebral infarction without residual deficits; Z86.711 Personal history of pulmonary embolism; Z91.14 Patient's other noncompliance with medication regimen; Z87.19 Personal history of other diseases of the digestive system; Z88.8 Allergy status to other drugs, medicaments and biological substances; Z79.01 Long term (current) use of anticoagulants
CPT/HCPCS: 36415; 74177; 80053; 80306; 81000; 83690; 84703; 85025; 85610; 96361; 96374; 96375

== ENCOUNTER 2018-07-01 23:07 | Emergency (ER) | payer MEDICARE, MEDICAID ==
[~2018-07-01] VITALS: Ht 165.1 cm; Wt 181.4 kg
[~2018-07-01 23:07] MED LIST changes: +PROC25SU27 RC
--- OUTSIDE RECORDS SUMMARY | 2018-07-01 23:12 | XMS REPORT | Continuity of Care Document ---
Author Author [facility] Organization [facility] Address Unknown Phone Unavailable Allergies Active Description Code Type Severity Reaction Onset Reported/Identified Relationship to Patient Clinical Status Yes metformin [id number] Drug Allergy Unknown N/A 08/21/2015 Yes spironolactone [id number] Drug Allergy Unknown N/A 08/21/2015 Medications There is no data. Problems Date Dx Coded Attending Type Code Diagnosis Diagnosed By 08/21/2015 MUNA LINK DO Ot E11.9 TYPE 2 DIABETES MELLITUS WITHOUT COMPLIC 08/21/2015 NIKOLAY DOUGHERTY MUNA K Ot F12.10 CANNABIS ABUSE, UNCOMPLICATED 08/21/2015 NIKOLAY DOUGHERTY MUNA K Ot F17.210 NICOTINE DEPENDENCE, CIGARETTES, UNCOMPL 08/21/2015 NIKOLAY DOUGHERTY MUNA K Ot F19.10 OTHER PSYCHOACTIVE SUBSTANCE ABUSE, UNCO 08/21/2015 NIKOLAY , MUNA K Ot I10 ESSENTIAL (PRIMARY) HYPERTENSION 08/21/2015 NIKOLAY DOUGHERTY MUNA K Ot K76.0 FATTY (CHANGE OF) LIVER, NOT ELSEWHERE C 08/21/2015 NIKOLAY DOUGHERTY MUNA K Ot R10.13 EPIGASTRIC PAIN 08/21/2015 NIKOLAY DOUGHERTY MUNA K Ot R11.2 NAUSEA WITH VOMITING, UNSPECIFIED 08/21/2015 NIKOLAY DOUGHERTY MUNA K Ot R16.1 SPLENOMEGALY, NOT ELSEWHERE CLASSIFIED 05/26/2018 TODD SCHMIDT Ot E11.9 TYPE 2 DIABETES MELLITUS WITHOUT COMPLIC 05/26/2018 BERNHUMA TODD Ot E78.00 PURE HYPERCHOLESTEROLEMIA, UNSPECIFIED 05/26/2018 BRAYAN TODD Ot F32.9 MAJOR DEPRESSIVE DISORDER, SINGLE EPISOD 05/26/2018 BRAYAN TODD Ot F41.9 ANXIETY DISORDER, UNSPECIFIED 05/26/2018 BRAYAN TODD Ot F91.3 OPPOSITIONAL DEFIANT DISORDER 05/26/2018 BRAYAN TODD Ot I10 ESSENTIAL (PRIMARY) HYPERTENSION 05/26/2018 BERNOT, TODD Ot K21.9 GASTRO-ESOPHAGEAL REFLUX DISEASE WITHOUT 05/26/2018 BERNOT, TODD Ot R25.9 UNSPECIFIED ABNORMAL INVOLUNTARY MOVEMEN 05/26/2018 BERNOT, TODD Ot Z79.01 SKILLED NURSING (CURRENT) USE OF ANTICOAGULANT 05/26/2018 BERNOT, TODD Ot Z86.711 PERSONAL HISTORY OF PULMONARY EMBOLISM 05/26/2018 BERNOT, TODD Ot Z86.73 PRSNL HX OF TIA (TIA), AND CEREB INFRC W 05/26/2018 BERNOT, TODD Ot Z87.19 PERSONAL HISTORY OF OTHER DISEASES OF TH 05/26/2018 BERNOT, TODD Ot Z87.448 PERSONAL HISTORY OF OTHER DISEASES OF UR 05/26/2018 BERNOT, TODD Ot Z88.8 ALLERGY STATUS TO OTH DRUG/MEDS/BIOL SUB 05/29/2018 BERNOT, TODD Ot E11.9 TYPE 2 DIABETES MELLITUS WITHOUT COMPLIC 05/29/2018 BERNOT, TODD Ot E78.00 PURE HYPERCHOLESTEROLEMIA, UNSPECIFIED 05/29/2018 BERNOT, TODD Ot F32.9 MAJOR DEPRESSIVE DISORDER, SINGLE EPISOD 05/29/2018 BERNOT, TODD Ot F41.9 ANXIETY DISORDER, UNSPECIFIED 05/29/2018 BERNOT, TODD Ot F91.3 OPPOSITIONAL DEFIANT DISORDER 05/29/2018 BERNOT, TODD Ot I10 ESSENTIAL (PRIMARY) HYPERTENSION 05/29/2018 BERNOT, TODD Ot K21.9 GASTRO-ESOPHAGEAL REFLUX DISEASE WITHOUT 05/29/2018 BERNOT, TODD Ot R25.9 UNSPECIFIED ABNORMAL INVOLUNTARY MOVEMEN 05/29/2018 BERNOT, TODD Ot 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 05/29/2018 BERNOT, TODD Ot Z86.711 PERSONAL HISTORY OF PULMONARY EMBOLISM 05/29/2018 BERNOT, TODD Ot Z86.73 PRSNL HX OF TIA (TIA), AND CEREB INFRC W 05/29/2018 BERNOT, TODD Ot Z87.19 PERSONAL HISTORY OF OTHER DISEASES OF TH 05/29/2018 BERNOT, TODD Ot Z87.448 PERSONAL HISTORY OF OTHER DISEASES OF UR 05/29/2018 BERNOT, TODD Ot Z88.8 ALLERGY STATUS TO OTH DRUG/MEDS/BIOL SUB 06/03/2018 JORGE THORNTON APRN Ot E11.9 TYPE 2 DIABETES MELLITUS WITHOUT COMPLIC 06/03/2018 JORGE THORNTON APRN Ot E78.00 PURE HYPERCHOLESTEROLEMIA, UNSPECIFIED 06/03/2018 JORGE THORNTON APRN Ot F32.9 MAJOR DEPRESSIVE DISORDER, SINGLE EPISOD 06/03/2018 JORGE THORNTON APRN Ot F41.9 ANXIETY DISORDER, UNSPECIFIED 06/03/2018 JORGE THORNTON APRN Ot F91.3 OPPOSITIONAL DEFIANT DISORDER 06/03/2018 JORGE THORNTON APRN Ot I10 ESSENTIAL (PRIMARY) HYPERTENSION 06/03/2018 JORGE THORNTON APRN Ot K21.9 GASTRO-ESOPHAGEAL REFLUX DISEASE WITHOUT 06/03/2018 JORGE THORNTON APRN Ot R10.12 LEFT UPPER QUADRANT PAIN 06/03/2018 JORGE THORNTON APRN Ot R11.2 NAUSEA WITH VOMITING, UNSPECIFIED 06/03/2018 JORGE THORNTON APRN Ot Z79.01 SKILLED NURSING (CURRENT) USE OF ANTICOAGULANT 06/03/2018 JORGE THORNTON APRN Ot Z86.711 PERSONAL HISTORY OF PULMONARY EMBOLISM 06/03/2018 JORGE THORNTON APRN Ot Z86.73 PRSNL HX OF TIA (TIA), AND CEREB INFRC W 06/03/2018 JORGE THORNTON APRN Ot Z87.19 PERSONAL HISTORY OF OTHER DISEASES OF TH 06/03/2018 JORGE THORNTON APRN Ot Z87.448 PERSONAL HISTORY OF OTHER DISEASES OF UR 06/03/2018 JORGE THORNTON APRN Ot Z88.8 ALLERGY STATUS TO OTH DRUG/MEDS/BIOL SUB 06/03/2018 JORGE THORNTON APRN Ot Z91.14 PATIENT'S OTHER NONCOMPLIANCE WITH MEDIC 06/05/2018 JORGE THORNTON APRN Ot E11.9 TYPE 2 DIABETES MELLITUS WITHOUT COMPLIC 06/05/2018 JORGE THORNTON APRN Ot E78.00 PURE HYPERCHOLESTEROLEMIA, UNSPECIFIED 06/05/2018 JORGE THORNTON APRN Ot F32.9 MAJOR DEPRESSIVE DISORDER, SINGLE EPISOD 06/05/2018 JORGE THORNTON APRN Ot F41.9 ANXIETY DISORDER, UNSPECIFIED 06/05/2018 JORGE THORNTON APRN Ot F91.3 OPPOSITIONAL DEFIANT DISORDER 06/05/2018 JORGE THORNTON APRN Ot I10 ESSENTIAL (PRIMARY) HYPERTENSION 06/05/2018 JORGE THORNTON APRN Ot K21.9 GASTRO-ESOPHAGEAL REFLUX DISEASE WITHOUT 06/05/2018 JORGE THORNTON APRN Ot R10.12 LEFT UPPER QUADRANT PAIN 06/05/2018 JORGE THORNTON APRN Ot R11.2 NAUSEA WITH VOMITING, UNSPECIFIED 06/05/2018 JORGE THORNTON APRN Ot Z79.01 SKILLED NURSING (CURRENT) USE OF ANTICOAGULANT 06/05/2018 JORGE THORNTON APRN Ot Z86.711 PERSONAL HISTORY OF PULMONARY EMBOLISM 06/05/2018 JORGE THORNTON APRN Ot Z86.73 PRSNL HX OF TIA (TIA), AND CEREB INFRC W 06/05/2018 JORGE THORNTON APRN Ot Z87.19 PERSONAL HISTORY OF OTHER DISEASES OF TH 06/05/2018 JORGE THORNTON APRN Ot Z87.448 PERSONAL HISTORY OF OTHER DISEASES OF UR 06/05/2018 JORGE THORNTON APRN Ot Z88.8 ALLERGY STATUS TO OTH DRUG/MEDS/BIOL SUB 06/05/2018 JORGE THORNTON APRN Ot Z91.14 PATIENT'S OTHER NONCOMPLIANCE WITH MEDIC Procedures There is no data. Results Test [...] i.cardiac measurement (mass/volume) < ng/ mL <0.30 Complete blood count (CBC) with automated white blood cell (WBC) differential - 06/03/18 10:15 Blood leukocytes automated count (number/volume) 12.5 10*3/uL 4.3-11.0 Blood erythrocytes automated count (number/volume) 6.00 10*6/uL 4.35-5.85 Venous blood hemoglobin measurement (mass/volume) 14.4 g/dL 11.5-16.0 Blood hematocrit (volume fraction) 45 % 35-52 Automated erythrocyte mean corpuscular volume 74 [foz_us] 80-99 Automated erythrocyte mean corpuscular hemoglobin (mass per erythrocyte) 24 pg 25-34 Automated erythrocyte mean corpuscular hemoglobin concentration measurement ( mass/volume) 32 g/dL 32-36 Automated erythrocyte distribution width ratio 19.1 % 10.0-14.5 Automated blood platelet count (count/volume) 483 10*3/uL 130-400 Automated blood platelet mean volume measurement 9.3 [foz_us] 7.4-10.4 Automated blood neutrophils/100 leukocytes 71 % 42-75 Automated blood lymphocytes/100 leukocytes 21 % 12-44 Blood monocytes/100 leukocytes 5 % 0-12 Automated blood eosinophils/100 leukocytes 3 % 0-10 Automated blood basophils/100 leukocytes 0 % 0-10 Blood neutrophils automated count (number/volume) 8.9 10*3 1.8-7.8 Blood lymphocytes automated count (number/volume) 2.6 10*3 1.0-4.0 Blood monocytes automated count (number/volume) 0.6 10*3 0.0-1.0 Automated eosinophil count 0.4 10*3/uL 0.0-0.3 Automated blood basophil count (count/volume) 0.0 10*3/uL 0.0-0.1 Serum or plasma choriogonadotropin ( test) detection - 06/03/18 10:15 Serum or plasma choriogonadotropin ( test) detection NEGATIVE NEGATIVE PT panel in platelet poor plasma by coagulation assay - 06/03/18 10:15 Prothrombin time (PT) in platelet poor plasma by coagulation assay 15.5 s 12.2-14.7 INR in platelet poor plasma or blood by coagulation assay 1.2 0.8-1.4 Comprehensive metabolic panel - 06/03/18 10:15 Serum or plasma sodium measurement (moles/volume) 141 mmol/L 135-145 Serum or plasma potassium measurement (moles/volume) 4.1 mmol/L 3.6-5.0 Serum or plasma chloride measurement (moles/volume) 108 mmol/L 98-107 Carbon dioxide 20 mmol/L 21-32 Serum or plasma anion gap determination (moles/volume) 13 mmol/L 5-14 Serum or plasma urea nitrogen measurement (mass/volume) 15 mg/dL 7-18 Serum or plasma creatinine measurement (mass/volume) 0.79 mg/dL 0.60-1.30 Serum or plasma urea nitrogen/creatinine mass ratio 19 NRG Serum or plasma creatinine measurement with calculation of estimated glomerular filtration rate > NRG Serum or plasma glucose measurement (mass/volume) 236 mg/dL 70-105 Serum or plasma calcium measurement (mass/volume) 9.6 mg/dL 8.5-10.1 Serum or plasma total bilirubin measurement (mass/volume) 0.9 mg/dL 0.1-1.0 Serum or plasma alkaline phosphatase measurement (enzymatic activity/volume) 66 U/L 40-136 Serum or plasma aspartate aminotransferase measurement (enzymatic activity/ volume) 17 U/L 5-34 Serum or plasma alanine aminotransferase measurement (enzymatic activity/volume ) 16 U/L 0-55 Serum or plasma protein measurement (mass/volume) 7.4 g/dL 6.4-8.2 Serum or plasma albumin measurement (mass/volume) 4.2 g/dL 3.2-4.5 CALCIUM CORRECTED 9.4 mg/dL 8.5-10.1 Lipase - 06/03/18 10:15 Lipase 6 U/L 8-78 Urine drug screening test - 06/03/18 11:17 Urine phencyclidine detection by screening method NEGATIVE NEGATIVE Urine benzodiazepines detection by screening method POSITIVE NEGATIVE Urine cocaine detection NEGATIVE NEGATIVE Urine amphetamines detection by screening method NEGATIVE NEGATIVE Urine methamphetamine detection by screening method NEGATIVE NEGATIVE Urine cannabinoids detection by screening method POSITIVE NEGATIVE Urine opiates detection by screening method NEGATIVE NEGATIVE Urine barbiturates detection NEGATIVE NEGATIVE Screening urine tricyclic antidepressants detection POSITIVE NEGATIVE Urine methadone detection by screening method NEGATIVE NEGATIVE Urine oxycodone detection POSITIVE NEGATIVE Urine propoxyphene detection NEGATIVE NEGATIVE Complete urinalysis with reflex to culture - 06/03/18 11:17 Urine color determination KELSEY NRG Urine clarity determination VERY CLOUDY NRG Urine pH measurement by test strip 6.5 5-9 Specific gravity of urine by test strip 1.020 1.016- 1.022 Urine protein assay by test strip, semi-quantitative 2+ NEGATIVE Urine glucose detection by automated test strip 3+ NEGATIVE Erythrocytes detection in urine sediment by light microscopy 5+ NEGATIVE Urine ketones detection by automated test strip 1+ NEGATIVE Urine nitrite detection by test strip NEGATIVE NEGATIVE Urine total bilirubin detection by test strip NEGATIVE NEGATIVE Urine urobilinogen measurement by automated test strip (mass/volume) 1 mg/dL NORMAL Urine leukocyte esterase detection by dipstick 1+ NEGATIVE Automated urine sediment erythrocyte count by microscopy (number/high power field) > [HPF] NRG Automated urine sediment leukocyte count by microscopy (number/high power field ) [HPF] NRG Bacteria detection in urine sediment by light microscopy FEW NRG Squamous epithelial cells detection in urine sediment by light microscopy 5-10 NRG Crystals detection in urine sediment by light microscopy NONE NRG Casts detection in urine sediment by light microscopy NONE NRG Mucus detection in urine sediment by light microscopy MODERATE NRG Complete urinalysis with reflex to culture NO NRG Encounters ACCT No. Visit Date/Time Discharge Status Pt. Type Provider Facility Loc./Unit Complaint [id number] 06/03/2018 10:07:00 06/03/2018 11:58:00 DIS Emergency JORGE THORNTON APRN [facility] ER ABD PAIN [id number] 05/26/2018 11:14:00 05/26/2018 14:39:00 DIS Emergency BRAYAN TODD [facility] ER SEIZURE [id number] 08/21/2015 19:55:00 08/21/2015 22:59:00 DIS Emergency MUNA LINK DO [facility] ER ABDOMINAL PAIN [id number] 07/01/2018 23:08:00 ACT Emergency REZA LLAMAS, IBIS Quintero [facility] ER ABD PAIN
[2018-07-01] MEDS ORDERED: NS IV 1000 ML 1,000 ML IV ONE (23:41)
[2018-07-01] MEDS ORDERED: LORazepam INJ 2 MG/ML (ATIVAN) VIAL IVP ONE (23:45)
[2018-07-01] MEDS ORDERED: FAMOTIDINE 20MG/2ML IV (PEPCID) IVP ONE (23:45)
[2018-07-01] MEDS ORDERED: ONDANSETRON 4 MG/2 ML (SDV) Z0FRAN IVP ONE (23:45)
[2018-07-02 00:19] LABS: BASOPHILS % (AUTO) 0 % (0-10); EOSINOPHILS % (AUTO) 0 % (0-10); HEMATOCRIT 43 % (35-52); HEMOGLOBIN 14.3 G/DL (11.5-16.0); LYMPHOCYTES # (AUTO) 1.2 X 10^3 (1.0-4.0); LYMPHOCYTES % (AUTO) 7 % (12-44); MEAN CORPUSCULAR HEMOGLOBIN 24 PG (25-34); MEAN CORPUSCULAR HGB CONC 34 G/DL (32-36); MEAN CORPUSCULAR VOLUME 72 FL (80-99); MEAN PLATELET VOLUME 9.3 FL (7.4-10.4); MONOCYTES # (AUTO) 0.3 X 10^3 (0.0-1.0); MONOCYTES % (AUTO) 2 % (0-12); NEUTROPHILS # (AUTO) 15.9 X 10^3 (1.8-7.8); NEUTROPHILS % (AUTO) 91 % (42-75); PLATELET COUNT 488 10^3/uL (130-400); RED CELL DISTRIBUTION WIDTH 18.3 % (10.0-14.5); WHITE BLOOD COUNT 17.5 10^3/uL (4.3-11.0)
[2018-07-02 00:35] LABS: ALANINE AMINOTRANSFERASE 12 U/L (0-55); ALBUMIN 4.3 GM/DL (3.2-4.5); ALKALINE PHOSPHATASE 84 U/L (40-136); BILIRUBIN,TOTAL 0.6 MG/DL (0.1-1.0); BUN/CREATININE RATIO 18; CALCIUM 9.5 MG/DL (8.5-10.1); CARBON DIOXIDE 17 MMOL/L (21-32); CHLORIDE 103 MMOL/L (98-107); CREATININE SERUM 0.97 MG/DL (0.60-1.30); GFR ESTIMATED > 60; GLUCOSE 300 MG/DL (70-105); LIPASE 8 U/L (8-78); MAGNESIUM 1.7 MG/DL (1.8-2.4); POTASSIUM 4.2 MMOL/L (3.6-5.0); SODIUM 137 MMOL/L (135-145); TOTAL PROTEIN 7.6 GM/DL (6.4-8.2)
[2018-07-02 00:37] LABS: ANISOCYTOSIS SLIGHT; BAND NEUTROPHILS 0 %; BASOPHILS % (MANUAL) 0 %; EOSINOPHILS % (MANUAL) 0 %; LYMPHOCYTES % (MANUAL) 4 %; MONOCYTES % (MANUAL) 1 %; NEUTROPHILS % (MANUAL) 95 %
[2018-07-02] MEDS ORDERED: NS IV 1000 ML 1,000 ML IV ONE (00:39)
[2018-07-02] MEDS ORDERED: inSUlin (REGULAR) HUMAN 1 UNIT/0.01 ML (CHARGE PER UNIT) IV ONE (00:45)
[2018-07-02 01:13] LABS: BILIRUBIN,URINE NEGATIVE (NEGATIVE); CLARITY,URINE SLIGHTLY CLOUDY; COLOR,URINE YELLOW; GLUCOSE, URINE (UA) 4+ (NEGATIVE); KETONES,URINE 2+ (NEGATIVE); LEUKOCYTE ESTERASE ,URINE 2+ (NEGATIVE); NITRITE,URINE NEGATIVE (NEGATIVE); PH,URINE 5 (5-9); PROTEIN,URINE 3+ (NEGATIVE); UROBILINOGEN,URINE NORMAL (NORMAL)
[2018-07-02 01:26] LABS: BACTERIA,URINE MODERATE /HPF; RBC,URINE RARE /HPF; SQUAMOUS EPITHELIAL CELL,UR 25-50 /HPF
[2018-07-02 01:34] LABS: BENZODIAZEPINES SCREEN URINE POSITIVE (NEGATIVE); CANNABINOID SCREEN, URINE POSITIVE (NEGATIVE); OPIATE SCREEN URINE POSITIVE (NEGATIVE); OXYCODONE STAT POSITIVE (NEGATIVE); PROPOXYPHENE STAT NEGATIVE (NEGATIVE); TRICYCLIC ANTIDEPRESSANTS SCRE POSITIVE (NEGATIVE)
[2018-07-02 01:35] LABS: AMPHETAMINE SCREEN, URINE NEGATIVE (NEGATIVE); BARBITURATE SCREEN URINE NEGATIVE (NEGATIVE); COCAINE SCREEN URINE NEGATIVE (NEGATIVE); METHADONE STAT NEGATIVE (NEGATIVE); METHAMPHETAMINE SCREEN URINE S NEGATIVE (NEGATIVE)
[2018-07-02] MEDS ORDERED: ONDA4TAB11 SL (02:39)
--- NOTE | 2018-07-02 02:39 | ED Abdominal Pain ---
General Chief Complaint: Abdominal/GI Problems Stated Complaint: ABD PAIN Nursing Triage Note: Pt arrived by private vehicle with a chief complaint of vomiting and abdominal pain. Pt has been vomiting since this morning. She stated she has gastroparesis and normally smoking weed helps, but it did not help today. Pt stated it is normally triggered by stress and she just recently put her dog down. Pt has sharp abdominal pain all over stomach that is sharp. Sepsis Screen: No Definite Risk Source of Information: Patient, Old Records Exam Limitations: No Limitations History of Present Illness Date Seen by Provider: Jul 01, 2018 Time Seen by Provider: 23:09 Initial Comments This 32-year-old woman presents to emergency room with upper abdominal pain and intense vomiting/dry heaving. She has had recurrent episodes of this. She has diabetes and gastroparesis. She reports prior episodes of ketoacidosis as well. She also suffers from significant anxiety. She reports her bowel movements have been abnormal recently and consist of a chalky white BM that sometimes floats. Patient has history of cholecystectomy. Patient is a regular smoker of marijuana. Allergies and Home Medications Allergies Coded Allergies: metformin (Verified Allergy, Unknown, 08/21/15) spironolactone (Verified Allergy, Unknown, 08/21/15) Home Medications Alprazolam 2 Mg Tablet, 2 MG PO Q6H PRN for ANXIETY, (Reported) Atorvastatin Calcium 40 Mg Tablet, 40 MG PO DAILY, (Reported) Buspirone HCl 15 Mg Tablet, 15 MG PO TID, (Reported) Fentanyl 1 Each Patch.td72, 50 MCG TD Q72H, (Reported) Hydrocodone/Acetaminophen 1 Each Tablet, 1 EACH PO Q6H, (Reported) Losartan/Hydrochlorothiazide 1 Each Tablet, 1 EACH PO DAILY, (Reported) Mirtazapine 15 Mg Tablet, 15 MG PO HS, (Reported) Naproxen 500 Mg Tablet, 500 MG PO BID, (Reported) Omeprazole 20 Mg Tablet.dr, 20 MG PO BID, (Reported) Ondansetron 4 Mg Tab.rapdis, 4 MG SL Q4H PRN for NAUSEA/VOMITING Prescribed by: IBIS NOEL on 07/02/18 0239 Oxycodone HCl/Acetaminophen 1 Each Tablet, 1 EACH PO Q6H, (Reported) Paroxetine HCl 30 Mg Tablet, 30 MG PO DAILY, (Reported) Paroxetine HCl 20 Mg Tablet, 20 MG PO DAILY, (Reported) Pregabalin 300 Mg Capsule, 300 MG PO Q12H, (Reported) Prochlorperazine Maleate 25 Mg Supp.rect, 25 MG RC Q8H PRN for NAUSEA/VOMITING Prescribed by: JORGE THORNTON on 06/03/18 114 Promethazine HCl 50 Mg Supp.rect, 50 MG RC Q4H Prescribed by: MUNA LINK on 08/21/158 Ropinirole HCl 0.5 Mg Tablet, 0.5 MG PO Q8H, (Reported) Scopolamine 1 Each Patch.td72, 1 EACH TD Q72 HOURS Prescribed by: MUNA LINK on 08/21/152217 Sitagliptin Phosphate 100 Mg Tablet, 100 MG PO DAILY, (Reported) Warfarin Sodium 10 Mg Tablet, 10 MG PO DAILY, (Reported) Warfarin Sodium 1 Mg Tablet, 3 MG PO DAILY, (Reported) Zolpidem Tartrate 10 Mg Tablet, 10 MG PO HS PRN for INSOMNIA, (Reported) Patient Home Medication List Home Medication List Reviewed: Yes Review of Systems Review of Systems Constitutional: no symptoms reported EENTM: No Symptoms Reported Respiratory: No Symptoms Reported Cardiovascular: No Symptoms Reported Gastrointestinal: See HPI Genitourinary: No Symptoms Reported Musculoskeletal: no symptoms reported Skin: no symptoms reported Psychiatric/Neurological: See HPI, Anxiety Endocrine: No Symptoms Reported Hematologic/Lymphatic: No Symptoms Reported Past Dkznbom-Yccipb-Tvemjh Hx Patient Social History Alcohol Use: Rarely Uses Recreational Drug Use: Yes Drug of Choice: MARIJUANA Smoking Status: Current Everyday Smoker 2nd Hand Smoke Exposure: No Recent Foreign Travel: No Contact w/Someone Who Travel: No Recent Infectious Disease Expo: No Physical Abuse: No Sexual Abuse: No Mistreated: No Fear: No Past Medical History Surgeries: Yes (EGD) Gallbladder Respiratory: Yes Pulmonary Embolism Cardiac: Yes High Cholesterol, Hypertension Neurological: Yes ("CVA" X 2--NO RESIDUAL, PER PT. QUESTION IF ACTUALLY TIA'S) Stroke Reproductive Disorders: Yes Female Reproductive Disorders: Endometriosis, Polycystic Ovarian Dis Genitourinary: No Gastrointestinal: Yes (esophageal hernia; gastroparesis) Gastroesophageal Reflux, Ulcer Musculoskeletal: Yes (CHRONIC KNEE PAIN, RESTLESS LEG SYNDROME) Fibromyalgia Endocrine: Yes (MORBID OBESITY--> 400 LBS. ) Diabetes, Insulin dep Cancer: No Psychosocial: Yes (OCD) Anxiety, ODD, Depression Integumentary: No Blood Disorders: Yes (ANEMIA) Adverse Reaction/Blood Tranf: No Physical Exam Vital Signs Vital Signs - First Documented 07/01/18 23:45 Temp 98.8 Pulse 139 Resp 20 B/P (MAP) 139/111 (120) Pulse Ox 99 O2 Delivery Room Air Capillary Refill : Less Than 3 Seconds Height/Weight/BMI Height: 5'5.00" Weight: 400lbs. 0oz. 181.085186de; 69.88 BMI Method:Stated General Appearance: WD/WN, moderate distress (heaving and moaning), obese HEENT: PERRL/EOMI, pharynx normal Neck: normal inspection Respiratory: lungs clear, normal breath sounds, no respiratory distress, no accessory muscle use Cardiovascular: regular rate, rhythm, no edema, no murmur Gastrointestinal: normal bowel sounds, soft, tenderness (epigastric region) Extremities: normal inspection, no pedal edema Neurologic/Psychiatric: reproductive healthcare assistant II-XII nml as tested, no motor/sensory deficits, alert, oriented x 3, other (anxiety) Skin: normal color, warm/dry Progress/Results/Core Measures Results/Orders Lab Results Laboratory Tests Test 07/01/18 00:00 07/01/18 23:35 07/02/18 00:52 07/02/18 02:23 Range/Units Sodium Level 137 135-145 MMOL/L Potassium Level 4.2 3.6-5.0 MMOL/L Chloride Level 103 98-107 MMOL/L Carbon Dioxide Level 17 L 21-32 MMOL/L Anion Gap 17 H 5-14 MMOL/L Blood Urea Nitrogen 17 7-18 MG/DL Creatinine 0.97 0.60-1.30 MG/DL Estimat Glomerular Filtration Rate > 60 BUN/Creatinine Ratio 18 Glucose Level 300 H 70-105 MG/DL Calcium Level 9.5 8.5-10.1 MG/DL Corrected Calcium 9.3 8.5-10.1 MG/DL Magnesium Level 1.7 L 1.8-2.4 MG/DL Total Bilirubin 0.6 0.1-1.0 MG/DL Aspartate Amino Transf (AST/SGOT) 21 5-34 U/L Alanine Aminotransferase (ALT/SGPT) 12 0-55 U/L Alkaline Phosphatase 84 40-136 U/L Total Protein 7.6 6.4-8.2 GM/DL Albumin 4.3 3.2-4.5 GM/DL Lipase 8 8-78 U/L Serum Test, Qualitative NEGATIVE NEGATIVE White Blood Count 17.5 H 4.3-11.0 10^3/uL Red Blood Count 5.93 H 4.35-5.85 10^6/uL Hemoglobin 14.3 11.5-16.0 G/DL Hematocrit 43 35-52 % Mean Corpuscular Volume 72 L 80-99 FL Mean Corpuscular Hemoglobin 24 L 25-34 PG Mean Corpuscular Hemoglobin Concent 34 32-36 G/DL Red Cell Distribution Width 18.3 H 10.0-14.5 % Platelet Count 488 H 130-400 10^3/uL Mean Platelet Volume 9.3 7.4-10.4 FL Neutrophils (%) (Auto) 91 H 42-75 % Lymphocytes (%) (Auto) 7 L 12-44 % Monocytes (%) (Auto) 2 0-12 % Eosinophils (%) (Auto) 0 0-10 % Basophils (%) (Auto) 0 0-10 % Neutrophils # (Auto) 15.9 H 1.8-7.8 X 10^3 Lymphocytes # (Auto) 1.2 1.0-4.0 X 10^3 Monocytes # (Auto) 0.3 0.0-1.0 X 10^3 Eosinophils # (Auto) 0.0 0.0-0.3 10^3/uL Basophils # (Auto) 0.0 0.0-0.1 10^3/uL Neutrophils % (Manual) 95 % Lymphocytes % (Manual) 4 % Monocytes % (Manual) 1 % Eosinophils % (Manual) 0 % Basophils % (Manual) 0 % Band Neutrophils 0 % Anisocytosis SLIGHT Urine Color YELLOW Urine Clarity SLIGHTLY CLOUDY Urine pH 5 5-9 Urine Specific [place] 1.025 H 1.016-1.022 Urine Protein 3+ H NEGATIVE Urine Glucose (UA) 4+ H NEGATIVE Urine Ketones 2+ H NEGATIVE Urine Nitrite NEGATIVE NEGATIVE Urine Bilirubin NEGATIVE NEGATIVE Urine Urobilinogen NORMAL NORMAL MG/DL Urine Leukocyte Esterase 2+ H NEGATIVE Urine RBC (Auto) 1+ H NEGATIVE Urine RBC RARE /HPF Urine WBC 5-10 H /HPF Urine Squamous Epithelial Cells 25-50 H /HPF Urine Crystals NONE /LPF Urine Bacteria MODERATE H /HPF Urine Casts PRESENT /LPF Urine Hyaline Casts 2-5 H /LPF Urine Mucus LARGE H /LPF Urine Culture Indicated YES Urine Opiates Screen POSITIVE H NEGATIVE Urine Oxycodone Screen POSITIVE H NEGATIVE Urine Methadone Screen NEGATIVE NEGATIVE Urine Propoxyphene Screen NEGATIVE NEGATIVE Urine Barbiturates Screen NEGATIVE NEGATIVE Ur Tricyclic Antidepressants Screen POSITIVE H NEGATIVE Urine Phencyclidine Screen NEGATIVE NEGATIVE Urine Amphetamines Screen NEGATIVE NEGATIVE Urine Methamphetamines Screen NEGATIVE NEGATIVE Urine Benzodiazepines Screen POSITIVE H NEGATIVE Urine Cocaine Screen NEGATIVE NEGATIVE Urine Cannabinoids Screen POSITIVE H NEGATIVE Glucometer 171 H 70-110 MG/DL My Orders Orders - IBIS COBB MD Ua Culture If Indicated (07/01/18 23:09) Cbc With Automated Diff (07/01/18 23:35) Comprehensive Metabolic Panel (07/01/18 23:35) Hcg,Qualitative Serum (07/01/18 23:35) Lipase (07/01/18 23:35) Ondansetron Injection (Zofran Injectio (07/01/18 23:45) Famotidine Injection (Pepcid Injection) (07/01/18 23:45) Magnesium (07/01/18 23:35) Lorazepam Injection (Ativan Injection) (07/01/18 23:45) Saline Lock/Iv-Start (07/01/18 23:41) Ns Iv 1000 Ml (Sodium Chloride 0.9%) (07/01/18 23:41) Drug Screen Stat (Urine) (07/01/18 23:41) Manual Differential (07/01/18 23:35) Insulin (Regular) Human (Humulin R (Per (07/02/18 00:45) Accucheck Stat ONCE (07/02/18 00:39) Saline Lock/Iv-Start (07/02/18 00:39) Ns Iv 1000 Ml (Sodium Chloride 0.9%) (07/02/18 00:39) Urine Culture (07/02/18 00:52) Medications Given in ED Current Medications Medications Dose Ordered Sig/Becki Route Start Time Stop Time Status Last Admin Dose Admin Famotidine 20 mg ONCE ONCE IVP 07/01/18 23:45 2 23:46 DC 07/01/18 23:44 20 MG Insulin Human Regular 5 unit ONCE ONCE IV 07/02/18 00:45 07/02/18 00:46 DC 07/02/18 01:11 5 UNIT Lorazepam 0.5 mg ONCE ONCE IVP 07/01/18 23:45 07/01/18 23:46 DC 07/01/18 23:57 0.5 MG Ondansetron HCl 8 mg ONCE ONCE IVP 07/01/18 23:45 07/01/18 23:46 DC 07/01/18 23:44 8 MG Sodium Chloride 1,000 ml @ 0 mls/hr Q0M ONCE IV 07/01/18 23:41 07/01/18 23:43 DC 07/01/18 23:57 1,000 MLS/HR Sodium Chloride 1,000 ml @ 0 mls/hr Q0M ONCE IV 07/02/18 00:39 07/02/18 00:40 DC 07/02/18 01:11 1,000 MLS/HR Vital Signs/I&O 07/01/18 07/02/18 23:45 02:46 Temp 98.8 95.9 Pulse 139 87 Resp 20 20 B/P (MAP) 139/111 (120) 123/81 (95) Pulse Ox 99 95 O2 Delivery Room Air Room Air Blood Pressure Mean: 120 FSBG Bedside Testing Finger Stick Blood Glucose: 171 Blood Glucose Action Taken: rn notified Progress Progress Note : Progress Note Labs were obtained. Patient was treated with IV fluid, Zofran, and Ativan. She had significant improvement with these measures. Insulin 5 units along with a liter of IV fluid was used for treatment of hyperglycemia. These treatments improved her condition immensely. She was ambulating easily and jovial. A second liter of IV fluid was administered to help ensure the mild metabolic acidosis was treated well. Departure Impression Primary Impression: Upper abdominal pain Additional Impressions: Nausea and vomiting Qualified Codes: R11.2 - Nausea with vomiting, unspecified Metabolic acidosis Hyperglycemia Leukocytosis Qualified Codes: D72.829 - Elevated white blood cell count, unspecified Disposition: HOME, SELF-CARE Condition: Improved Departure-Patient Inst. Decision time for Depature: 02:37 Referrals: NO,LOCAL PHYSICIAN (PCP/Family) Primary Care Physician Patient Instructions: Acute Abdomen (Belly Pain), Adult (DC) Add. Discharge Instructions: Drink plenty of clear liquids. Gradually advance your diet with small quantities of bland food as tolerated. Follow-up with a primary care provider soon as possible. Use Zofran as prescribed for nausea and vomiting if needed. Return to care if symptoms are worsening. All discharge instructions reviewed with patient and/or family. Voiced understanding. Scripts Ondansetron (Ondansetron Odt) 4 Mg Tab.rapdis 4 MG SL Q4H PRN for NAUSEA/VOMITING, #10 TAB Prov: IBIS COBB MD 07/02/18 IBIS COBB MD Jul 02, 2018 02:39
[2018-07-02 02:46] VITALS: BP 123/81
== END 2018-07-02 02:46 | disposition home or self-care (01) ==
LOC: EDUNIT# 23:07 → ER 23:08
DX: E87.2 Acidosis (principal); E11.65 Type 2 diabetes mellitus with hyperglycemia; D72.829 Elevated white blood cell count, unspecified; E11.43 Type 2 diabetes mellitus with diabetic autonomic (poly)neuropathy; K31.84 Gastroparesis; F41.9 Anxiety disorder, unspecified; I10 Essential (primary) hypertension; E78.00 Pure hypercholesterolemia, unspecified; K21.9 Gastro-esophageal reflux disease without esophagitis; E66.01 Morbid (severe) obesity due to excess calories; F32.9 Major depressive disorder, single episode, unspecified; F42.9 Obsessive-compulsive disorder, unspecified; F12.10 Cannabis abuse, uncomplicated; F17.200 Nicotine dependence, unspecified, uncomplicated; Z88.8 Allergy status to other drugs, medicaments and biological substances; Z79.01 Long term (current) use of anticoagulants; Z86.711 Personal history of pulmonary embolism; Z86.73 Personal history of transient ischemic attack (TIA), and cerebral infarction without residual deficits; Z79.84 Long term (current) use of oral hypoglycemic drugs
CPT/HCPCS: 36415; 80053; 80306; 81000; 82962; 83690; 83735; 84703; 85007; 85027; 87088

== ENCOUNTER 2018-07-20 18:14 | Emergency (ER) | payer MEDICARE, MEDICAID ==
[~2018-07-20] VITALS: Ht 165.1 cm; Wt 181.4 kg
[~2018-07-20 18:14] MED LIST changes: +ONDA4TAB11 SL
--- OUTSIDE RECORDS SUMMARY | 2018-07-20 18:19 | XMS REPORT | Continuity of Care Document ---
Author Author [facility] Organization [facility] Address Unknown Phone Unavailable Allergies Active Description Code Type Severity Reaction Onset Reported/Identified Relationship to Patient Clinical Status Yes metformin [id number] Drug Allergy Unknown N/A 08/21/2015 Yes spironolactone [id number] Drug Allergy Unknown N/A 08/21/2015 Medications There [...] R16.1 SPLENOMEGALY, NOT ELSEWHERE CLASSIFIED 05/26/2018 TODD SCMHIDT Ot E11.9 TYPE 2 DIABETES MELLITUS WITHOUT [...] INVOLUNTARY MOVEMEN 05/26/2018 BERNOT, TODD Ot Z79.01 ASSISTED (CURRENT) USE OF ANTICOAGULANT 05/26/2018 BERNOT, TODD [...] INVOLUNTARY MOVEMEN 05/29/2018 BERNOT, TODD Ot 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 05/29/2018 BERNOT, TODD [...] UNSPECIFIED 06/03/2018 JORGE THORNTON APRN Ot Z79.01 ASSISTED (CURRENT) USE OF ANTICOAGULANT 06/03/2018 JORGE THORNTON [...] UNSPECIFIED 06/05/2018 JORGE THORNTON APRN Ot Z79.01 ASSISTED (CURRENT) USE OF ANTICOAGULANT 06/05/2018 JORGE THORNTON [...] THORNTON APRN Ot Z88.8 ALLERGY STATUS TO [facility] DRUG/MEDS/BIOL SUB 06/05/2018 JORGE THORNTON APRN Ot Z91.14 PATIENT'S OTHER NONCOMPLIANCE WITH MEDIC 07/03/2018 REZA LLAMAS, IBIS Quintero Ot D72.829 ELEVATED WHITE BLOOD CELL COUNT, UNSPECI 07/03/2018 IBIS COBB MD, Ot E11.43 TYPE 2 DIABETES W DIABETIC AUTONOMIC (PO 07/03/2018 IBIS COBB MD, Ot E11.65 TYPE 2 DIABETES MELLITUS WITH HYPERGLYCE 07/03/2018 IBIS COBB MD, Ot E66.01 MORBID (SEVERE) OBESITY DUE TO EXCESS CA 07/03/2018 IBIS COBB MD Ot E78.00 PURE HYPERCHOLESTEROLEMIA, UNSPECIFIED 07/03/2018 IBIS COBB MD, Ot E87.2 ACIDOSIS 07/03/2018 IBIS COBB MD, Ot F12.10 CANNABIS ABUSE, UNCOMPLICATED 07/03/2018 IBIS COBB MD, Ot F17.200 NICOTINE DEPENDENCE, UNSPECIFIED, UNCOMP 07/03/2018 IBIS COBB MD, Ot F32.9 MAJOR DEPRESSIVE DISORDER, SINGLE EPISOD 07/03/2018 IBIS COBB MD, Ot F41.9 ANXIETY DISORDER, UNSPECIFIED 07/03/2018 IBIS COBB MD, Ot F42.9 OBSESSIVE-COMPULSIVE DISORDER, UNSPECIFI 07/03/2018 IBIS COBB MD, Ot I10 ESSENTIAL (PRIMARY) HYPERTENSION 07/03/2018 IBIS COBB MD, Ot K21.9 GASTRO-ESOPHAGEAL REFLUX DISEASE WITHOUT 07/03/2018 IBIS COBB MD, Ot K31.84 GASTROPARESIS 07/03/2018 IBIS COBB MD, Ot R10.9 UNSPECIFIED ABDOMINAL PAIN 07/03/2018 IBIS COBB MD, Ot 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 07/03/2018 IBIS COBB MD, Ot Z79.84 GARDEN WORKER (CURRENT) USE OF ORAL HYPOGLYC 07/03/2018 IBIS COBB MD, Ot Z86.711 PERSONAL HISTORY OF PULMONARY EMBOLISM 07/03/2018 IBIS COBB MD, Ot Z86.73 PRSNL HX OF TIA (TIA), AND CEREB INFRC W 07/03/2018 IBIS COBB MD, Ot Z88.8 ALLERGY STATUS TO OT DRUG/MEDS/BIOL SUB 07/09/2018 IBIS COBB MD, Ot D72.829 ELEVATED WHITE BLOOD CELL COUNT, UNSPECI 07/09/2018 IBIS COBB MD, Ot E11.43 TYPE 2 DIABETES W DIABETIC AUTONOMIC (PO 07/09/2018 IBIS COBB MD, Ot E11.65 TYPE 2 DIABETES MELLITUS WITH HYPERGLYCE 07/09/2018 IBIS COBB MD, Ot E66.01 MORBID (SEVERE) OBESITY DUE TO EXCESS CA 07/09/2018 IBIS COBB MD, Ot E78.00 PURE HYPERCHOLESTEROLEMIA, UNSPECIFIED 07/09/2018 IBIS COBB MD, Ot E87.2 ACIDOSIS 07/09/2018 IBIS COBB MD, Ot F12.10 CANNABIS ABUSE, UNCOMPLICATED 07/09/2018 IBIS COBB MD, Ot F17.200 NICOTINE DEPENDENCE, UNSPECIFIED, UNCOMP 07/09/2018 IBIS COBB MD, Ot F32.9 MAJOR DEPRESSIVE DISORDER, SINGLE EPISOD 07/09/2018 IBIS COBB MD, Ot F41.9 ANXIETY DISORDER, UNSPECIFIED 07/09/2018 IBIS COBB MD, Ot F42.9 OBSESSIVE-COMPULSIVE DISORDER, UNSPECIFI 07/09/2018 IBIS COBB MD, Ot I10 ESSENTIAL (PRIMARY) HYPERTENSION 07/09/2018 IBIS COBB MD, Ot K21.9 GASTRO-ESOPHAGEAL REFLUX DISEASE WITHOUT 07/09/2018 IBIS COBB MD, Ot K31.84 GASTROPARESIS 07/09/2018 IBIS COBB MD, Ot R10.9 UNSPECIFIED ABDOMINAL PAIN 07/09/2018 IBIS COBB MD, Ot 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 07/09/2018 IBIS COBB MD, Ot Z79.84 GARDEN WORKER (CURRENT) USE OF ORAL HYPOGLYC 07/09/2018 BIIS COBB MD, Ot Z86.711 PERSONAL HISTORY OF PULMONARY EMBOLISM 07/09/2018 IBIS COBB MD, Ot Z86.73 PRSNL HX OF TIA (TIA), AND CEREB INFRC W 07/09/2018 IBIS COBB MD, Ot Z88.8 ALLERGY STATUS TO [facility] DRUG/MEDS/BIOL SUB Procedures There is no data. [...] urinalysis with reflex to culture NO NRG Comprehensive metabolic panel - 07/01/18 00:00 Serum or plasma sodium measurement (moles/volume) 137 mmol/L 135-145 Serum or plasma potassium measurement (moles/volume) 4.2 mmol/L 3.6-5.0 Serum or plasma chloride measurement (moles/volume) 103 mmol/L 98-107 Carbon dioxide 17 mmol/L 21-32 Serum or plasma anion gap determination (moles/volume) 17 mmol/L 5-14 Serum or plasma urea nitrogen measurement (mass/volume) 17 mg/dL 7-18 Serum or plasma creatinine measurement (mass/volume) 0.97 mg/dL 0.60-1.30 Serum or plasma urea nitrogen/creatinine mass ratio 18 NRG Serum or plasma creatinine measurement with calculation of estimated glomerular filtration rate > NRG Serum or plasma glucose measurement (mass/volume) 300 mg/dL 70-105 Serum or plasma calcium measurement (mass/volume) 9.5 mg/dL 8.5-10.1 Serum or plasma total bilirubin measurement (mass/volume) 0.6 mg/dL 0.1-1.0 Serum or plasma alkaline phosphatase measurement (enzymatic activity/volume) 84 U/L 40-136 Serum or plasma aspartate aminotransferase measurement (enzymatic activity/ volume) 21 U/L 5-34 Serum or plasma alanine aminotransferase measurement (enzymatic activity/volume ) 12 U/L 0-55 Serum or plasma protein measurement (mass/volume) 7.6 g/dL 6.4-8.2 Serum or plasma albumin measurement (mass/volume) 4.3 g/dL 3.2-4.5 CALCIUM CORRECTED 9.3 mg/dL 8.5-10.1 Magnesium - 07/01/18 00:00 Magnesium 1.7 mg/dL 1.8-2.4 Lipase - 07/01/18 00:00 Lipase 8 U/L 8-78 Serum or plasma choriogonadotropin ( test) detection - 07/01/18 00:00 Serum or plasma choriogonadotropin ( test) detection NEGATIVE NEGATIVE Complete blood count (CBC) with automated white blood cell (WBC) differential - 07/01/18 23:35 Blood leukocytes automated count (number/volume) 17.5 10*3/uL 4.3-11.0 Blood erythrocytes automated count (number/volume) 5.93 10*6/uL 4.35-5.85 Venous blood hemoglobin measurement (mass/volume) 14.3 g/dL 11.5-16.0 Blood hematocrit (volume fraction) 43 % 35-52 Automated erythrocyte mean corpuscular volume 72 [foz_us] 80-99 Automated erythrocyte mean corpuscular hemoglobin (mass per erythrocyte) 24 pg 25-34 Automated erythrocyte mean corpuscular hemoglobin concentration measurement ( mass/volume) 34 g/dL 32-36 Automated erythrocyte distribution width ratio 18.3 % 10.0-14.5 Automated blood platelet count (count/volume) 488 10*3/uL 130-400 Automated blood platelet mean volume measurement 9.3 [foz_us] 7.4-10.4 Automated blood neutrophils/100 leukocytes 91 % 42-75 Automated blood lymphocytes/100 leukocytes 7 % 12-44 Blood monocytes/100 leukocytes 2 % 0-12 Automated blood eosinophils/100 leukocytes 0 % 0-10 Automated blood basophils/100 leukocytes 0 % 0-10 Blood neutrophils automated count (number/volume) 15.9 10*3 1.8-7.8 Blood lymphocytes automated count (number/volume) 1.2 10*3 1.0-4.0 Blood monocytes automated count (number/volume) 0.3 10*3 0.0-1.0 Automated eosinophil count 0.0 10*3/uL 0.0-0.3 Automated blood basophil count (count/volume) 0.0 10*3/uL 0.0-0.1 Blood manual differential performed detection - 07/01/18 23:35 Blood monocytes/100 leukocytes 1 % NRG Manual blood segmented neutrophils/100 leukocytes 95 % NRG Blood band neutrophils/100 leukocytes 0 % NRG Manual blood lymphocytes/100 leukocytes 4 % NRG Manual eosinophils/100 leukocytes in nose 0 % NRG Manual blood basophils/100 leukocytes 0 % NRG Blood anisocytosis detection by light microscopy SLIGHT NRG Complete urinalysis with reflex to culture - 07/02/18 00:52 Urine color determination YELLOW NRG Urine clarity determination SLIGHTLY CLOUDY NRG Urine pH measurement by test strip 5 5-9 Specific gravity of urine by test strip 1.025 1.016- 1.022 Urine protein assay by test strip, semi-quantitative 3+ NEGATIVE Urine glucose detection by automated test strip 4+ NEGATIVE Erythrocytes detection in urine sediment by light microscopy 1+ NEGATIVE Urine ketones detection by automated test strip 2+ NEGATIVE Urine nitrite detection by test strip NEGATIVE NEGATIVE Urine total bilirubin detection by test strip NEGATIVE NEGATIVE Urine urobilinogen measurement by automated test strip (mass/volume) NORMAL NORMAL Urine leukocyte esterase detection by dipstick 2+ NEGATIVE Automated urine sediment erythrocyte count by microscopy (number/high power field) RARE NRG Automated urine sediment leukocyte count by microscopy (number/high power field ) [HPF] NRG Bacteria detection in urine sediment by light microscopy MODERATE NRG Squamous epithelial cells detection in urine sediment by light microscopy 25-50 NRG Crystals detection in urine sediment by light microscopy NONE NRG Casts detection in urine sediment by light microscopy PRESENT NRG Mucus detection in urine sediment by light microscopy LARGE NRG Complete urinalysis with reflex to culture YES NRG Hyaline casts detection in urine sediment by light microscopy 2-5 NRG Urine drug screening test - 07/02/18 00:52 Urine phencyclidine detection by screening method NEGATIVE NEGATIVE Urine benzodiazepines detection by screening method POSITIVE NEGATIVE Urine cocaine detection NEGATIVE NEGATIVE Urine amphetamines detection by screening method NEGATIVE NEGATIVE Urine methamphetamine detection by screening method NEGATIVE NEGATIVE Urine cannabinoids detection by screening method POSITIVE NEGATIVE Urine opiates detection by screening method POSITIVE NEGATIVE Urine barbiturates detection NEGATIVE NEGATIVE Screening urine tricyclic antidepressants detection POSITIVE NEGATIVE Urine methadone detection by screening method NEGATIVE NEGATIVE Urine oxycodone detection POSITIVE NEGATIVE Urine propoxyphene detection NEGATIVE NEGATIVE Bacterial urine culture - 07/02/18 00:52 Bacterial urine culture SEE COMMEN NRG COLONY COUNT . NRG Capillary blood glucose measurement by glucometer (mass/volume) - 07/02/18 02: 23 Capillary blood glucose measurement by glucometer (mass/volume) 171 mg/dL 70-110 Encounters ACCT No. Visit Date/Time Discharge Status Pt. Type Provider Facility Loc./Unit Complaint [id number] 07/01/2018 23:08:00 07/02/2018 02:46:00 DIS Outpatient REZA LLAMAS, IBIS Quintero [facility] ER ABD PAIN [id number] 06/03/2018 10:07:00 06/03/2018 11:58:00 DIS Emergency JORGE THORNTON APRN [facility] ER ABD PAIN [id number] 05/26/2018 11:14:00 05/26/2018 14:39:00 DIS Emergency TODD SCHMIDT [facility] ER SEIZURE [id number] 08/21/2015 19:55:00 08/21/2015 22:59:00 DIS Emergency MUNA LINK DO [facility] ER ABDOMINAL PAIN
[2018-07-20] MEDS ORDERED: NS IV 1000 ML 1,000 ML IV SCH ×3 (18:25→23:00)
[2018-07-20] MEDS ORDERED: KETOROLAC 30 MG/ML VIAL IVP ONE (18:30)
--- NOTE | 2018-07-20 18:37 | ED Abdominal Pain ---
General Chief Complaint: Abdominal/GI Problems Stated Complaint: ABD PAIN Source of Information: Patient, EMS Exam Limitations: No Limitations History of Present Illness Date Seen by Provider: Jul 20, 2018 Time Seen by Provider: 18:19 Initial Comments The patient presents to the ER with chief complaint of abdominal pain with a history of panic attacks and said her dog just get that down. Says the pain started this morning. She says it is consistent with her gastroparesis. It's on the left upper and lower quadrant. She had a bowel movement yesterday she said was normal formed. No diarrhea. She doesn't some nausea but no vomiting. She said she has some oxycodone and morphine immediate release at her disposal he took some of both this morning feeling that would help with the pain but it has not completely taken away. She rates the pain as severe sharp constant. She's had no fevers or chills. She has a history of diabetes she's had her gallbladder removed, she has diabetes which has caused her gastroparesis. She has a history of PCOS. the patient states in the past she's tried Reglan but had some dystonic reaction so she does not use that anymore. She is a very difficult historian. The patient takes warfarin for a history of pulmonary embolism. Patient has a history of endometriosis. The patient denies any vaginal discharge. She states she is a virgin and has never had an STI. Allergies and Home Medications Allergies Coded Allergies: metformin (Verified Allergy, Unknown, 08/21/15) spironolactone (Verified Allergy, Unknown, 08/21/15) Home Medications Alprazolam 2 Mg Tablet, 2 MG PO Q6H PRN for ANXIETY, (Reported) Atorvastatin Calcium 40 Mg Tablet, 40 MG PO DAILY, (Reported) Buspirone HCl 15 Mg Tablet, 15 MG PO TID, (Reported) Fentanyl 1 Each Patch.td72, 50 MCG TD Q72H, (Reported) Hydrocodone/Acetaminophen 1 Each Tablet, 1 EACH PO Q6H, (Reported) Losartan/Hydrochlorothiazide 1 Each Tablet, 1 EACH PO DAILY, (Reported) Mirtazapine 15 Mg Tablet, 15 MG PO HS, (Reported) Naproxen 500 Mg Tablet, 500 MG PO BID, (Reported) Omeprazole 20 Mg Tablet.dr, 20 MG PO BID, (Reported) Ondansetron 4 Mg Tab.rapdis, 4 MG SL Q4H PRN for NAUSEA/VOMITING Prescribed by: IBIS NOEL on 07/02/18 0239 Oxycodone HCl/Acetaminophen 1 Each Tablet, 1 EACH PO Q6H, (Reported) Paroxetine HCl 30 Mg Tablet, 30 MG PO DAILY, (Reported) Paroxetine HCl 20 Mg Tablet, 20 MG PO DAILY, (Reported) Pregabalin 300 Mg Capsule, 300 MG PO Q12H, (Reported) Prochlorperazine Maleate 25 Mg Supp.rect, 25 MG RC Q8H PRN for NAUSEA/VOMITING Prescribed by: JORGE THORNTON on 06/03/18 1148 Promethazine HCl 50 Mg Supp.rect, 50 MG RC Q4H Prescribed by: MUNA LINK on 08/21/152217 Ropinirole HCl 0.5 Mg Tablet, 0.5 MG PO Q8H, (Reported) Scopolamine 1 Each Patch.td72, 1 EACH TD Q72 HOURS Prescribed by: MUNA LINK on 08/21/152217 Sitagliptin Phosphate 100 Mg Tablet, 100 MG PO DAILY, (Reported) Warfarin Sodium 10 Mg Tablet, 10 MG PO DAILY, (Reported) Warfarin Sodium 1 Mg Tablet, 3 MG PO DAILY, (Reported) Zolpidem Tartrate 10 Mg Tablet, 10 MG PO HS PRN for INSOMNIA, (Reported) Patient Home Medication List Home Medication List Reviewed: Yes Review of Systems Review of Systems Constitutional: No chills, No fever EENTM: No Blurred Vision, No Double Vision Respiratory: Denies Cough, Denies Shortness of Air Cardiovascular: Denies Chest Pain, Denies Lightheadedness Gastrointestinal: Denies Abdomen Distended; Abdominal Pain; Denies Constipated , Denies Diarrhea; Nausea Genitourinary: Denies Burning Musculoskeletal: No back pain, No joint pain Skin: No pruritus, No rash Psychiatric/Neurological: Anxiety; Denies Depressed Past Wkjipdx-Mlkcsv-Kiytow Hx Patient Social History Alcohol Use: Denies Use Recreational Drug Use: Yes Drug of Choice: MARIJUANA Smoking Status: Current Everyday Smoker 2nd Hand Smoke Exposure: No Recent Foreign Travel: No Contact w/Someone Who Travel: No Physical Abuse: No Sexual Abuse: No Mistreated: No Fear: No Past Medical History Surgeries: Yes (EGD) Gallbladder Respiratory: Yes Pulmonary Embolism Cardiac: Yes High Cholesterol, Hypertension Neurological: Yes ("CVA" X 2--NO RESIDUAL, PER PT. QUESTION IF ACTUALLY TIA'S) Stroke Reproductive Disorders: Yes Female Reproductive Disorders: Endometriosis, Polycystic Ovarian Dis Genitourinary: No Gastrointestinal: Yes (esophageal hernia; gastroparesis, chronic abdominal pain ) Gastroesophageal Reflux, Ulcer Musculoskeletal: Yes (CHRONIC KNEE PAIN, RESTLESS LEG SYNDROME) Fibromyalgia Endocrine: Yes (MORBID OBESITY--> 400 LBS. ) Diabetes, Insulin dep Cancer: No Psychosocial: Yes (OCD, opiod dependence) Anxiety, ODD, Depression Integumentary: No Blood Disorders: Yes (ANEMIA) Adverse Reaction/Blood Tranf: No Physical Exam Vital Signs Vital Signs - First Documented 07/20/18 07/20/18 18:22 20:00 Temp 97.0 Pulse 145 Resp 20 B/P (MAP) 171/129 (143) Pulse Ox 96 O2 Delivery Nasal Cannula O2 Flow Rate 2.00 Capillary Refill : Height/Weight/BMI Height: 5'5.00" Weight: 400lbs. 0oz. 181.005690hm; 69.88 BMI Method:Stated General Appearance: mild distress, obese HEENT: PERRL/EOMI, pharynx normal Respiratory: lungs clear, no respiratory distress, no accessory muscle use Cardiovascular: normal peripheral pulses, regular rate, rhythm Peripheral Pulses: 2+ Radial Pulses (R), 2+ Radial Pulses (L) Gastrointestinal: normal bowel sounds, non tender, soft Neurologic/Psychiatric: alert, oriented x 3, other (Anxious) Skin: normal color, warm/dry Focused Exam Lactate Level 07/20/18 18:30: Lactic Acid Level 5.97*H 07/20/18 20:45: Lactic Acid Level 2.00 Lactic Acid Level Laboratory Tests Test 07/20/18 18:30 07/20/18 20:45 Lactic Acid Level 5.97 MMOL/L (0.50-2.00) *H 2.00 MMOL/L (0.50-2.00) Progress/Results/Core Measures Results/Orders Lab Results Laboratory Tests Test 07/20/18 18:30 07/20/18 19:52 07/20/18 20:45 07/20/18 23:05 Range/Units White Blood Count 19.1 H 4.3-11.0 10^3/uL Red Blood Count 6.46 H 4.35-5.85 10^6/uL Hemoglobin 14.8 11.5-16.0 G/DL Hematocrit 47 35-52 % Mean Corpuscular Volume 72 L 80-99 FL Mean Corpuscular Hemoglobin 23 L 25-34 PG Mean Corpuscular Hemoglobin Concent 32 32-36 G/DL Red Cell Distribution Width 19.2 H 10.0-14.5 % Platelet Count 646 H 130-400 10^3/uL Mean Platelet Volume 9.9 7.4-10.4 FL Neutrophils (%) (Auto) 90 H 42-75 % Lymphocytes (%) (Auto) 7 L 12-44 % Monocytes (%) (Auto) 3 0-12 % Eosinophils (%) (Auto) 0 0-10 % Basophils (%) (Auto) 0 0-10 % Neutrophils # (Auto) 17.1 H 1.8-7.8 X 10^3 Lymphocytes # (Auto) 1.4 1.0-4.0 X 10^3 Monocytes # (Auto) 0.5 0.0-1.0 X 10^3 Eosinophils # (Auto) 0.0 0.0-0.3 10^3/uL Basophils # (Auto) 0.1 0.0-0.1 10^3/uL Neutrophils % (Manual) 85 % Lymphocytes % (Manual) 8 % Monocytes % (Manual) 5 % Eosinophils % (Manual) 0 % Basophils % (Manual) 1 % Band Neutrophils 1 % Blood Morphology Comment NORMAL Prothrombin Time 27.3 H 12.2-14.7 SEC INR Comment 2.5 H 0.8-1.4 Activated Partial Thromboplast Time 39 H 24-35 SEC Sodium Level 139 135-145 MMOL/L Potassium Level 4.2 3.6-5.0 MMOL/L Chloride Level 102 98-107 MMOL/L Carbon Dioxide Level 17 L 21-32 MMOL/L Anion Gap 20 H 5-14 MMOL/L Blood Urea Nitrogen 17 7-18 MG/DL Creatinine 1.27 0.60-1.30 MG/DL Estimat Glomerular Filtration Rate 48 BUN/Creatinine Ratio 13 Glucose Level 238 H 70-105 MG/DL Lactic Acid Level 5.97 *H 2.00 0.50-2.00 MMOL/L Calcium Level 10.6 H 8.5-10.1 MG/DL Corrected Calcium 8.5-10.1 MG/DL Magnesium Level 2.0 1.8-2.4 MG/DL Total Bilirubin 0.7 0.1-1.0 MG/DL Aspartate Amino Transf (AST/SGOT) 22 5-34 U/L Alanine Aminotransferase (ALT/SGPT) 17 0-55 U/L Alkaline Phosphatase 98 40-136 U/L Troponin I < 0.028 <0.028 NG/ML C-Reactive Protein High Sensitivity 2.26 H 0.00-0.50 MG/DL Total Protein 8.4 H 6.4-8.2 GM/DL Albumin 4.8 H 3.2-4.5 GM/DL Serum Test, Qualitative NEGATIVE NEGATIVE Monoscreen NEGATIVE NEGATIVE Glucometer 172 H 70-110 MG/DL Urine Color YELLOW Urine Clarity CLEAR Urine pH 5 5-9 Urine Specific [place] 1.010 L 1.016-1.022 Urine Protein 2+ H NEGATIVE Urine Glucose (UA) 2+ H NEGATIVE Urine Ketones 2+ H NEGATIVE Urine Nitrite NEGATIVE NEGATIVE Urine Bilirubin NEGATIVE NEGATIVE Urine Urobilinogen 1 NORMAL MG/DL Urine Leukocyte Esterase 1+ H NEGATIVE Urine RBC (Auto) NEGATIVE NEGATIVE Urine RBC NONE /HPF Urine WBC 2-5 /HPF Urine Squamous Epithelial Cells 0-2 /HPF Urine Crystals NONE /LPF Urine Bacteria TRACE /HPF Urine Casts PRESENT /LPF Urine Hyaline Casts 10-25 H /LPF Urine Mucus SMALL H /LPF Urine Culture Indicated NO Urine Opiates Screen POSITIVE H NEGATIVE Urine Oxycodone Screen POSITIVE H NEGATIVE Urine Methadone Screen NEGATIVE NEGATIVE Urine Propoxyphene Screen NEGATIVE NEGATIVE Urine Barbiturates Screen NEGATIVE NEGATIVE Ur Tricyclic Antidepressants Screen POSITIVE H NEGATIVE Urine Phencyclidine Screen POSITIVE H NEGATIVE Urine Amphetamines Screen NEGATIVE NEGATIVE Urine Methamphetamines Screen NEGATIVE NEGATIVE Urine Benzodiazepines Screen POSITIVE H NEGATIVE Urine Cocaine Screen NEGATIVE NEGATIVE Urine Cannabinoids Screen POSITIVE H NEGATIVE Test 07/21/18 00:13 Range/Units White Blood Count 12.6 H 4.3-11.0 10^3/uL Red Blood Count 5.94 H 4.35-5.85 10^6/uL Hemoglobin 14.0 11.5-16.0 G/DL Hematocrit 42 35-52 % Mean Corpuscular Volume 70 L 80-99 FL Mean Corpuscular Hemoglobin 24 L 25-34 PG Mean Corpuscular Hemoglobin Concent 34 32-36 G/DL Red Cell Distribution Width 18.1 H 10.0-14.5 % Platelet Count 462 H 130-400 10^3/uL Mean Platelet Volume 9.5 7.4-10.4 FL Neutrophils (%) (Auto) 81 H 42-75 % Lymphocytes (%) (Auto) 12 12-44 % Monocytes (%) (Auto) 7 0-12 % Eosinophils (%) (Auto) 0 0-10 % Basophils (%) (Auto) 0 0-10 % Neutrophils # (Auto) 10.2 H 1.8-7.8 X 10^3 Lymphocytes # (Auto) 1.6 1.0-4.0 X 10^3 Monocytes # (Auto) 0.8 0.0-1.0 X 10^3 Eosinophils # (Auto) 0.0 0.0-0.3 10^3/uL Basophils # (Auto) 0.0 0.0-0.1 10^3/uL Total Creatine Kinase 307 H 29-168 U/L Lipase 9 8-78 U/L Micro Results Microbiology 07/20/18 Influenza Types A,B Antigen (MAGGIE) - Final, Complete My Orders Orders - WILIAM DELGADO Saline Lock/Iv-Start (07/20/18 18:20) Ketorolac Injection (Toradol Injection) (07/20/18 18:30) Saline Lock/Iv-Start (07/20/18 18:25) Ns Iv 1000 Ml (Sodium Chloride 0.9%) (07/20/18 18:25) Cbc With Automated Diff (07/20/18 18:25) Comprehensive Metabolic Panel (07/20/18 18:25) Hs C Reactive Protein (07/20/18 18:25) Drug Screen Stat (Urine) (07/20/18 18:25) Hcg,Qualitative Serum (07/20/18 18:25) Lactic Acid Analyzer (07/20/18 18:25) Magnesium (07/20/18 18:25) Protime With Inr (07/20/18 18:25) Partial Thromboplastin Time (07/20/18 18:25) Ua Culture If Indicated (07/20/18 18:25) Blood Culture (07/20/18 18:25) Accucheck Stat ONCE (07/20/18 18:25) Lorazepam Injection (Ativan Injection) (07/20/18 18:45) Ondansetron Injection (Zofran Injectio (07/20/18 18:45) Manual Differential (07/20/18 18:30) Sputum Culture (07/20/18 19:09) Urine Culture (07/20/18 19:09) Chest 1 View, Ap/Pa Only (07/20/18 19:09) Saline Lock/Iv-Start (07/20/18 19:09) Ekg Tracing (07/20/18 19:09) Troponin I (07/20/18 19:09) Vital Signs Adult Sepsis Patie Q15M (07/20/18 19:09) Remove Rings In Anticipation O (07/20/18 19:09) Influenza A And B Antigens (07/20/18 19:09) Ns Iv 1000 Ml (Sodium Chloride 0.9%) (07/20/18 19:09) Piperacillin Sodium/Tazobactam (Zosyn Vi (07/20/18 19:15) Ct Abdomen/Pelvis W (07/20/18 19:12) Monotest (07/20/18 19:12) Iohexol Injection (Omnipaque 350 Mg/Ml 1 (07/20/18 19:30) Contrast Received (Contrast Received) (07/20/18 19:30) Ns (Ivpb) (Sodium Chloride 0.9% Ivpb Bag (07/20/18 19:30) Ns Iv 1000 Ml (Sodium Chloride 0.9%) (07/20/18 23:00) Fentanyl Injection (Sublimaze Injection (07/20/18 23:00) Fentanyl Injection (Sublimaze Injection (07/20/18 22:52) Fentanyl Injection (Sublimaze Injection (07/20/18 23:45) Medications Given in ED Current Medications Medications Dose Ordered Sig/Becki Route Start Time Stop Time Status Last Admin Dose Admin Fentanyl Citrate 50 mcg ONCE ONCE IVP 07/20/18 23:00 07/20/18 23:01 DC 07/20/18 23:02 50 MCG Fentanyl Citrate 50 mcg ONCE ONCE IVP 07/20/18 23:45 07/20/18 23:46 DC 07/21/18 00:28 50 MCG Ketorolac Tromethamine 30 mg ONCE ONCE IVP 07/20/18 18:30 07/20/18 18:31 DC 07/20/18 18:43 30 MG Lorazepam 1 mg ONCE ONCE IVP 07/20/18 18:45 07/20/18 18:46 DC 07/20/18 18:55 1 MG Ondansetron HCl 4 mg ONCE ONCE IVP 07/20/18 18:45 07/20/18 18:46 DC 07/20/18 18:56 4 MG Piperacillin Sod/ Tazobactam Sod 4.5 gm/Sodium Chloride 100 ml @ 200 mls/hr ONCE ONCE IV 07/20/18 19:15 07/20/18 19:44 DC 07/20/18 19:37 200 MLS/HR Vital Signs/I&O 07/20/18 07/20/18 18:22 20:00 Temp 97.0 99.1 Pulse 145 89 Resp 20 20 B/P (MAP) 171/129 (143) 155/86 Pulse Ox 96 97 O2 Delivery Nasal Cannula O2 Flow Rate 2.00 Progress Progress Note #1: Time: 18:47 Progress Note The patient was here on 02 July, 2-1/2 weeks ago with the exact same story of history of gastroparesis normally help with smoking weed and at this triggered sometimes by stress and she had just recently had to have her dog put down. At that time the patient was treated with some IV fluids her blood sugar was addressed and some Ativan and Zofran were given which seemed to help her symptoms. We will trial Zofran and fluids check her sugar labs urine and get a KUB of her abdomen. We will go ahead and let her have a milligram of Ativan since she does appear anxious. She declined Reglan but we could try erythromycin if her symptoms do not improve with her first line therapy. Progress Note #2: Time: 20:00 Progress Note Elevated lactate and white count 19,000 cross a severe sepsis workup with 3 L of fluid given for 30 mL/kg bolus with an adjusted ideal body weight of 235 pounds. We have chosen Zosyn. Her creatinine will improve once fluids are given so we will go ahead and proceed with a CT with contrast of the abdomen/pelvis. Patient's symptoms have improved significantly after initial interventions of Toradol, Zofran and Ativan. We'll also think about atypical angina given her risk factors and get EKG and troponin. Initial ECG Impression Date: Jul 20, 2018 Initial ECG Impression Time: 19:56 Initial ECG Rate: 103 Initial ECG Rhythm: S.Tach Initial ECG Intervals: Normal Initial ECG Impression: Normal Comment No ST elevation or depression Diagnostic Imaging Diagonstic Imaging: CT Plain Films/CT/US/NM/MRI: abdomen (Noncontrast), pelvis Comments [facility] [place], [place] NAME: [facility] REC#: [id number] PT STATUS: REG ER : 1985 PHYSICIAN: WILIAM DELGADO MD ADMIT DATE: 07/20/18/ER Draft Date of Exam:07/20/18 CT ABDOMEN/PELVIS W PROCEDURE: CT abdomen and pelvis with contrast. TECHNIQUE: Multiple contiguous axial images were obtained through the abdomen and pelvis after administration of intravenous contrast. INDICATION: Abdominal pain. History of gastroparesis. COMPARISON: 06/03/2018 FINDINGS: Included portions of the lung bases are clear. CT abdomen: Normal appendix is identified. Small bowel loops are nondistended. Right adrenal nodule has increased in size as it measures 1.6 cm in diameter compared to 1.3 cm on exam dated 08/21/2015. Relative washout of 60% is consistent with benign adenoma. Left adrenal gland has a normal appearance. The kidneys, spleen, and pancreas have a normal appearance. Liver is diffusely hypodense on this postcontrast exam consistent with underlying hepatic steatosis. There is no loculated fluid collection, free fluid, nor free air within the abdomen. No abnormal mesenteric or retroperitoneal adenopathy is seen. Bony structures show no acute abnormalities. CT pelvis: Urinary bladder is grossly unremarkable. There is no loculated fluid collection, free fluid, nor free air within the pelvis. No abnormal adenopathy is seen. Note is made of significant enlargement of the endometrial stripe as it measures 3.2 cm in diameter. Bony structures show no acute abnormalities. IMPRESSION: 1. Significant prominent appearance to the endometrial stripe. Underlying endometrial mass or polyp cannot be excluded. Ureter outlet obstruction with hydrometrocolpos is also a consideration. 2. Benign right adrenal adenoma. Dictated on workstation # [id number] Dict: 07/20/182046 Trans: 07/20/18 2110 DIOMEDES [id number] Interpreted by: ERIN BANDA MD Electronically signed by: Reviewed: Reviewed by Me Diagonstic Imaging: Xray Plain Films/CT/US/NM/MRI: chest (1v) Comments NAME: [facility] REC#: [id number] PHYSICIAN: WILIAM DELGADO MD CC: ERIN BANDA MD; WILIAM DELGADO Page 1 of 1 RADIOLOGY REPORT [facility] [place], [place] CC: ERIN BANDA MD; WILIAM DELGADO Page 1 of 1 RADIOLOGY REPORT NAME: GUS [facility] REC#: [id number] PT STATUS: REG ER : 1985 PHYSICIAN: WILIAM DELGADO MD ADMIT DATE: 07/20/18/ER Signed Date of Exam: 07/20/18 CHEST 1 VIEW, AP/PA ONLY INDICATION: Shortness of air COMPARISON: 05/26/2018 FINDINGS: Single frontal view of the chest demonstrates normal heart size and pulmonary vascularity. The lungs are well aerated and clear. No large pleural effusion or pneumothorax is seen. The visualized osseous structures show no acute abnormalities. IMPRESSION: 1. No acute cardiopulmonary process. Dictated by: Dictated on workstation # [id number] Dict: 07/20/182016 Trans: 07/20/182224 Interpreted by: ERIN BANDA MD Electronically signed by: ERIN BANDA MD 07/20/182224 Reviewed: Reviewed by Me Departure Impression Primary Impression: Severe sepsis Additional Impressions: Abdominal pain Qualified Codes: R10.84 - Generalized abdominal pain Acute anxiety Disposition: XF SHT-TRM HOSP Condition: Improved Transfer Time Spoke to Accepting Phy: 00:[address] Garcia: Jenniffer Quevedo [place] Accepts the patient. Transfer Time: 01:29 [place] Method of Transfer: EMS Departure-Patient Inst. Referrals: NO,LOCAL PHYSICIAN (PCP/Family) Primary Care Physician WILIAM DELGADO Jul 20, 2018 18:37
[2018-07-20] MEDS ORDERED: LORazepam INJ 2 MG/ML (ATIVAN) VIAL IVP ONE (18:45)
[2018-07-20] MEDS ORDERED: ONDANSETRON 4 MG/2 ML (SDV) Z0FRAN IVP ONE (18:45)
[2018-07-20 18:55] LABS: BASOPHILS # (AUTO) 0.1 10^3/uL (0.0-0.1); BASOPHILS % (AUTO) 0 % (0-10); EOSINOPHILS % (AUTO) 0 % (0-10); HEMATOCRIT 47 % (35-52); HEMOGLOBIN 14.8 G/DL (11.5-16.0); LYMPHOCYTES # (AUTO) 1.4 X 10^3 (1.0-4.0); LYMPHOCYTES % (AUTO) 7 % (12-44); MEAN CORPUSCULAR HEMOGLOBIN 23 PG (25-34); MEAN CORPUSCULAR HGB CONC 32 G/DL (32-36); MEAN CORPUSCULAR VOLUME 72 FL (80-99); MEAN PLATELET VOLUME 9.9 FL (7.4-10.4); MONOCYTES # (AUTO) 0.5 X 10^3 (0.0-1.0); MONOCYTES % (AUTO) 3 % (0-12); NEUTROPHILS # (AUTO) 17.1 X 10^3 (1.8-7.8); NEUTROPHILS % (AUTO) 90 % (42-75); PLATELET COUNT 646 10^3/uL (130-400); RED CELL DISTRIBUTION WIDTH 19.2 % (10.0-14.5); WHITE BLOOD COUNT 19.1 10^3/uL (4.3-11.0)
[2018-07-20 19:00] LABS: INR 2.5 (0.8-1.4); PROTHROMBIN TIME PATIENT 27.3 SEC (12.2-14.7)
[2018-07-20 19:08] LABS: ALANINE AMINOTRANSFERASE 17 U/L (0-55); ALBUMIN 4.8 GM/DL (3.2-4.5); ALKALINE PHOSPHATASE 98 U/L (40-136); BILIRUBIN,TOTAL 0.7 MG/DL (0.1-1.0); BUN/CREATININE RATIO 13; CALCIUM 10.6 MG/DL (8.5-10.1); CARBON DIOXIDE 17 MMOL/L (21-32); CHLORIDE 102 MMOL/L (98-107); CREATININE SERUM 1.27 MG/DL (0.60-1.30); GFR ESTIMATED 48; GLUCOSE 238 MG/DL (70-105); POTASSIUM 4.2 MMOL/L (3.6-5.0); SODIUM 139 MMOL/L (135-145); TOTAL PROTEIN 8.4 GM/DL (6.4-8.2)
[2018-07-20] MEDS ORDERED: PIPERACILLIN SODIUM/TAZOBACTAM 4.5 GM in NS (IVPB) 100 ML IV ONE (19:15)
[2018-07-20 19:21] LABS: BAND NEUTROPHILS 1 %; EOSINOPHILS % (MANUAL) 0 %; LYMPHOCYTES % (MANUAL) 8 %; MONOCYTES % (MANUAL) 5 %; NEUTROPHILS % (MANUAL) 85 %
[2018-07-20 19:22] LABS: BASOPHILS % (MANUAL) 1 %; RBC MORPH NORMAL
[2018-07-20] MEDS ORDERED: IOHEXOL 350 MG/ML 100 ML (OMNIPAQUE 350) VIAL IV ONE (19:30)
[2018-07-20] MEDS ORDERED: NS 100 ML (IVPB) BAG IV ONE (19:30)
[2018-07-20] MEDS ORDERED: RECEIVED CONTRAST (Hold Metformin) IV SCH (19:30)
--- NOTE | 2018-07-20 20:21 | Diagnostic Imaging Report ---
INDICATION: Shortness of air COMPARISON: 05/26/2018 FINDINGS: Single frontal view of the chest demonstrates normal heart size and pulmonary vascularity. The lungs are well aerated and clear. No large pleural effusion or pneumothorax is seen. The visualized osseous structures show no acute abnormalities. IMPRESSION: 1. No acute cardiopulmonary process. Dictated by: Dictated on workstation # [id number]
--- NOTE | 2018-07-20 21:11 | Diagnostic Imaging Report ---
PROCEDURE: CT abdomen and pelvis with contrast. TECHNIQUE: Multiple contiguous axial images were obtained through the abdomen and pelvis after administration of intravenous contrast. INDICATION: Abdominal pain. History of gastroparesis. COMPARISON: 06/03/2018 FINDINGS: Included portions of the lung bases are clear. CT abdomen: Normal appendix is identified. Small bowel loops are nondistended. Right adrenal nodule has increased in size as it measures 1.6 cm in diameter compared to 1.3 cm on exam dated 08/21/2015. Relative washout of 60% is consistent with benign adenoma. Left adrenal gland has a normal appearance. The kidneys, spleen, and pancreas have a normal appearance. Liver is diffusely hypodense on this postcontrast exam consistent with underlying hepatic steatosis. There is no loculated fluid collection, free fluid, nor free air within the abdomen. No abnormal mesenteric or retroperitoneal adenopathy is seen. Bony structures show no acute abnormalities. CT pelvis: Urinary bladder is grossly unremarkable. There is no loculated fluid collection, free fluid, nor free air within the pelvis. No abnormal adenopathy is seen. Note is made of significant enlargement of the endometrial stripe as it measures 3.2 cm in diameter. Bony structures show no acute abnormalities. IMPRESSION: 1. Significant prominent appearance to the endometrial stripe. Underlying endometrial mass or polyp cannot be excluded. Uterine outlet obstruction with hydrometrocolpos is also a consideration. 2. Benign right adrenal adenoma. Dictated by: Dictated on workstation # [id number]
[2018-07-20] MEDS ORDERED: fentaNYL INJECTION 100 MCG/2 ML AMP ONE (22:52)
[2018-07-20] MEDS ORDERED: fentaNYL INJECTION 100 MCG/2 ML AMP IVP ONE ×2 (23:00→23:45)
[2018-07-20 23:16] LABS: BILIRUBIN,URINE NEGATIVE (NEGATIVE); CLARITY,URINE CLEAR; COLOR,URINE YELLOW; GLUCOSE, URINE (UA) 2+ (NEGATIVE); KETONES,URINE 2+ (NEGATIVE); LEUKOCYTE ESTERASE ,URINE 1+ (NEGATIVE); NITRITE,URINE NEGATIVE (NEGATIVE); PH,URINE 5 (5-9); PROTEIN,URINE 2+ (NEGATIVE); UROBILINOGEN,URINE 1 MG/DL (NORMAL)
[2018-07-20 23:24] LABS: BACTERIA,URINE TRACE /HPF; SQUAMOUS EPITHELIAL CELL,UR 0-2 /HPF
[2018-07-20 23:44] LABS: AMPHETAMINE SCREEN, URINE NEGATIVE (NEGATIVE); BARBITURATE SCREEN URINE NEGATIVE (NEGATIVE); BENZODIAZEPINES SCREEN URINE POSITIVE (NEGATIVE); CANNABINOID SCREEN, URINE POSITIVE (NEGATIVE); COCAINE SCREEN URINE NEGATIVE (NEGATIVE); METHADONE STAT NEGATIVE (NEGATIVE); METHAMPHETAMINE SCREEN URINE S NEGATIVE (NEGATIVE); OPIATE SCREEN URINE POSITIVE (NEGATIVE); OXYCODONE STAT POSITIVE (NEGATIVE); PROPOXYPHENE STAT NEGATIVE (NEGATIVE); TRICYCLIC ANTIDEPRESSANTS SCRE POSITIVE (NEGATIVE)
[2018-07-21 00:29] LABS: BASOPHILS % (AUTO) 0 % (0-10); EOSINOPHILS % (AUTO) 0 % (0-10); HEMATOCRIT 42 % (35-52); LYMPHOCYTES # (AUTO) 1.6 X 10^3 (1.0-4.0); LYMPHOCYTES % (AUTO) 12 % (12-44); MEAN CORPUSCULAR HEMOGLOBIN 24 PG (25-34); MEAN CORPUSCULAR HGB CONC 34 G/DL (32-36); MEAN CORPUSCULAR VOLUME 70 FL (80-99); MEAN PLATELET VOLUME 9.5 FL (7.4-10.4); MONOCYTES # (AUTO) 0.8 X 10^3 (0.0-1.0); MONOCYTES % (AUTO) 7 % (0-12); NEUTROPHILS # (AUTO) 10.2 X 10^3 (1.8-7.8); NEUTROPHILS % (AUTO) 81 % (42-75); PLATELET COUNT 462 10^3/uL (130-400); RED CELL DISTRIBUTION WIDTH 18.1 % (10.0-14.5); WHITE BLOOD COUNT 12.6 10^3/uL (4.3-11.0)
[2018-07-21 00:46] LABS: CREATINE KINASE 307 U/L (29-168); LIPASE 9 U/L (8-78)
[2018-07-21 01:30] VITALS: BP 148/86
== END 2018-07-21 01:30 | disposition short-term general hospital (02) ==
LOC: EDUNIT# 18:14 → ER 18:15
DX: A41.9 Sepsis, unspecified organism (principal); R65.20 Severe sepsis without septic shock; R10.12 Left upper quadrant pain; F41.9 Anxiety disorder, unspecified; E11.43 Type 2 diabetes mellitus with diabetic autonomic (poly)neuropathy; K31.84 Gastroparesis; F12.10 Cannabis abuse, uncomplicated; E78.00 Pure hypercholesterolemia, unspecified; K21.9 Gastro-esophageal reflux disease without esophagitis; I10 Essential (primary) hypertension; E66.01 Morbid (severe) obesity due to excess calories; F32.9 Major depressive disorder, single episode, unspecified; F42.9 Obsessive-compulsive disorder, unspecified; F91.3 Oppositional defiant disorder; D64.9 Anemia, unspecified; F17.200 Nicotine dependence, unspecified, uncomplicated; Z87.19 Personal history of other diseases of the digestive system; Z86.73 Personal history of transient ischemic attack (TIA), and cerebral infarction without residual deficits; Z86.711 Personal history of pulmonary embolism; Z79.01 Long term (current) use of anticoagulants; Z68.44 Body mass index [BMI] 60.0-69.9, adult; Z90.89 Acquired absence of other organs; Z88.8 Allergy status to other drugs, medicaments and biological substances; Z87.448 Personal history of other diseases of urinary system
CPT/HCPCS: 36415; 71045; 74177; 80053; 80306; 81000; 82550; 82962; 83605; 83690; 83735; 84484; 84703; 85007; 85025; 85027; 85610; 85730; 86141; 86308; 87040; 87088; 87804; 93005; 96361; 96365; 96375; 96376

== ENCOUNTER 2018-09-04 21:22 | Emergency (ER) | payer MEDICARE, MEDICAID ==
[~2018-09-04] VITALS: Ht 165.1 cm; Wt 172.4 kg
[2018-09-04] MEDS ORDERED: NS IV 1000 ML 1,000 ML ONE (21:26)
[2018-09-04] MEDS ORDERED: HALOPERIDOL 5 MG/ML (HALDOL) AMP ONE (21:26)
[2018-09-04] MEDS ORDERED: diphenhydrAMINE 50 MG/ML INJ (BENADRYL) ONE (21:26)
--- OUTSIDE RECORDS SUMMARY | 2018-09-04 21:28 | XMS REPORT | Continuity of Care Document ---
Author Organization Unknown Address Unknown Allergies Active Description Code Type Severity Reaction Onset Reported/Identified Relationship to Patient Clinical Status Yes metformin [id number] Drug Allergy Unknown N/A 08/21/2015 Yes spironolactone [id number] Drug Allergy Unknown N/A 08/21/2015 Medications There [...] OTHER PSYCHOACTIVE SUBSTANCE ABUSE, UNCO 08/21/2015 NIKOLAY DO MUNA K Ot I10 ESSENTIAL (PRIMARY) HYPERTENSION 08/21/2015 NIKOLAY DO MUNA K Ot K76.0 FATTY (CHANGE OF) LIVER, NOT ELSEWHERE C 08/21/2015 NIKOLAY DO MUNA K Ot R10.13 EPIGASTRIC PAIN 08/21/2015 NIKOLAY DO MUNA K Ot R11.2 NAUSEA WITH VOMITING, UNSPECIFIED 08/21/2015 NIKOLAY DO MUNA K Ot R16.1 SPLENOMEGALY, NOT ELSEWHERE CLASSIFIED 05/26/2018 TODD SCHMIDT Ot E11.9 TYPE 2 DIABETES MELLITUS WITHOUT COMPLIC 05/26/2018 BRAYAN TODD Ot E78.00 PURE HYPERCHOLESTEROLEMIA, UNSPECIFIED 05/26/2018 ARMIDA SCHMIDTIS Ot F32.9 MAJOR DEPRESSIVE DISORDER, SINGLE EPISOD 05/26/2018 ARMIDA SCHMIDTIS Ot F41.9 ANXIETY DISORDER, UNSPECIFIED 05/26/2018 ARMIDA SCHMIDTIS Ot F91.3 OPPOSITIONAL DEFIANT DISORDER 05/26/2018 BRAYAN TDOD Ot I10 ESSENTIAL (PRIMARY) HYPERTENSION 05/26/2018 ARMIDA SCHMIDTIS Ot K21.9 GASTRO-ESOPHAGEAL REFLUX DISEASE WITHOUT 05/26/2018 BERNOT, TODD Ot R25.9 UNSPECIFIED ABNORMAL INVOLUNTARY MOVEMEN 05/26/2018 BERNOT, TODD Ot Z79.01 PHYSICIANS AND SURGEONS (CURRENT) USE OF ANTICOAGULANT 05/26/2018 BERNOT, TODD [...] INVOLUNTARY MOVEMEN 05/29/2018 BERNOT, TODD Ot Z79.01 PHYSICIANS [employer] SURGEONS (CURRENT) USE OF ANTICOAGULANT 05/29/2018 BERNOT, TODD [...] UNSPECIFIED 06/03/2018 JORGE THORNTON APRN Ot Z79.01 PH[employer]IANS [employer] (CURRENT) USE OF ANTICOAGULANT 06/03/2018 JORGE THORNTON [...] UNSPECIFIED 06/05/2018 JORGE THORNTON APRN Ot Z79.01 PH[employer]IANS [employer] (CURRENT) USE OF ANTICOAGULANT 06/05/2018 JORGE THORNTON [...] Ot Z91.14 PATIENT'S OTHER NONCOMPLIANCE WITH MEDIC 07/02/2018 REZA LLAMAS, IBIS Quintero Ot D72.829 ELEVATED WHITE BLOOD CELL COUNT, UNSPECI 07/02/2018 IBIS COBB MD Ot E11.43 TYPE 2 DIABETES W DIABETIC AUTONOMIC (PO 07/02/2018 IBIS COBB MD, Ot E11.65 TYPE 2 DIABETES MELLITUS WITH HYPERGLYCE 07/02/2018 IBIS COBB MD Ot E66.01 MORBID (SEVERE) OBESITY DUE TO EXCESS CA 07/02/2018 IBIS COBB MD Ot E78.00 PURE HYPERCHOLESTEROLEMIA, UNSPECIFIED 07/02/2018 IBIS COBB MD Ot E87.2 ACIDOSIS 07/02/2018 IBIS COBB MD, Ot F12.10 CANNABIS ABUSE, UNCOMPLICATED 07/02/2018 IBIS COBB MD Ot F17.200 NICOTINE DEPENDENCE, UNSPECIFIED, UNCOMP 07/02/2018 IBIS COBB MD Ot F32.9 MAJOR DEPRESSIVE DISORDER, SINGLE EPISOD 07/02/2018 IBIS COBB MD, Ot F41.9 ANXIETY DISORDER, UNSPECIFIED 07/02/2018 IBIS COBB MD, Ot F42.9 OBSESSIVE-COMPULSIVE DISORDER, UNSPECIFI 07/02/2018 IBIS COBB MD, Ot I10 ESSENTIAL (PRIMARY) HYPERTENSION 07/02/2018 IBIS COBB MD, Ot K21.9 GASTRO-ESOPHAGEAL REFLUX DISEASE WITHOUT 07/02/2018 IBIS COBB MD, Ot K31.84 GASTROPARESIS 07/02/2018 IBIS COBB MD, Ot R10.9 UNSPECIFIED ABDOMINAL PAIN 07/02/2018 IBIS COBB MD, Ot Z79.01 PHYSICIANS AND SURGEONS (CURRENT) USE OF ANTICOAGULANT 07/02/2018 IBIS COBB MD, Ot Z79.84 PHYSICIANS AND SURGEONS (CURRENT) USE OF ORAL HYPOGLYC 07/02/2018 IBIS COBB MD, Ot Z86.711 PERSONAL HISTORY OF PULMONARY EMBOLISM 07/02/2018 IBIS COBB MD, Ot Z86.73 PRSNL HX OF TIA (TIA), AND CEREB INFRC W 07/02/2018 IBIS COBB MD, Ot Z88.8 ALLERGY STATUS TO [facility] DRUG/MEDS/BIOL SUB 07/03/2018 IBIS COBB MD, Ot D72.829 ELEVATED WHITE BLOOD CELL COUNT, UNSPECI 07/03/2018 IBIS COBB MD, Ot E11.43 TYPE 2 DIABETES W DIABETIC AUTONOMIC (PO 07/03/2018 IBIS COBB MD, Ot E11.65 TYPE 2 DIABETES MELLITUS WITH HYPERGLYCE 07/03/2018 IBIS COBB MD, Ot E66.01 MORBID (SEVERE) OBESITY DUE TO EXCESS CA 07/03/2018 IBIS COBB MD, Ot E78.00 PURE HYPERCHOLESTEROLEMIA, UNSPECIFIED 07/03/2018 IBIS COBB MD, Ot E87.2 ACIDOSIS 07/03/2018 IBIS COBB MD, Ot F12.10 CANNABIS ABUSE, UNCOMPLICATED 07/03/2018 IBIS COBB MD, Ot F17.200 NICOTINE DEPENDENCE, UNSPECIFIED, UNCOMP 07/03/2018 BRUEGGEMANN MD, IBIS T Ot F32.9 MAJOR DEPRESSIVE DISORDER, SINGLE EPISOD [...] PAIN 07/03/2018 IBIS COBB MD, Ot Z79.01 PH[employer]IANS [employer] (CURRENT) USE OF ANTICOAGULANT 07/03/2018 IBIS COBB MD, Ot Z79.84 PHYSICIANS AND SURGEONS (CURRENT) USE OF ORAL HYPOGLYC 07/03/2018 IBIS COBB MD, Ot Z86.711 PERSONAL HISTORY OF PULMONARY EMBOLISM 07/03/2018 IBIS COBB MD, Ot Z86.73 PRSNL HX OF TIA (TIA), AND CEREB INFRC W 07/03/2018 IBIS COBB MD, Ot Z88.8 ALLERGY STATUS TO [facility] DRUG/MEDS/BIOL SUB 07/09/2018 IBIS COBB MD, Ot [...] F42.9 OBSESSIVE-COMPULSIVE DISORDER, UNSPECIFI 07/09/2018 IBIS COBB MD Ot I10 ESSENTIAL (PRIMARY) HYPERTENSION 07/09/2018 IBIS COBB MD, Ot K21.9 GASTRO-ESOPHAGEAL REFLUX DISEASE WITHOUT 07/09/2018 IBIS COBB MD, Ot K31.84 GASTROPARESIS 07/09/2018 IBIS COBB MD, Ot R10.9 UNSPECIFIED ABDOMINAL PAIN 07/09/2018 IBIS COBB MD, Ot Z79.01 HALF-WAY (CURRENT) USE OF ANTICOAGULANT 07/09/2018 IBIS COBB MD Ot Z79.84 [employer]IANS [employer] (CURRENT) USE OF ORAL HYPOGLYC 07/09/2018 IBIS COBB MD, Ot Z86.711 PERSONAL HISTORY OF PULMONARY EMBOLISM 07/09/2018 IBIS COBB MD, Ot Z86.73 PRSNL HX OF TIA (TIA), AND CEREB INFRC W 07/09/2018 IBIS COBB MD Ot Z88.8 ALLERGY STATUS TO [facility] DRUG/MEDS/BIOL SUB 07/23/2018 WILIAM DELGADO MD Ot A41.9 SEPSIS, UNSPECIFIED ORGANISM 07/23/2018 WILIAM DELGADO MD Ot D64.9 ANEMIA, UNSPECIFIED 07/23/2018 WILIAM DELGADO MD Ot E11.43 TYPE 2 DIABETES W DIABETIC AUTONOMIC (PO 07/23/2018 WILIAM DELGADO MD Ot E66.01 MORBID (SEVERE) OBESITY DUE TO EXCESS CA 07/23/2018 WILIAM DELGADO MD Ot E78.00 PURE HYPERCHOLESTEROLEMIA, UNSPECIFIED 07/23/2018 WILIAM DELGADO MD Ot F12.10 CANNABIS ABUSE, UNCOMPLICATED 07/23/2018 WILIAM DELGADO MD Ot F17.200 NICOTINE DEPENDENCE, UNSPECIFIED, UNCOMP 07/23/2018 WILIAM DELGADO MD Ot F32.9 MAJOR DEPRESSIVE DISORDER, SINGLE EPISOD 07/23/2018 WILIAM DELGADO MD, Ot F41.9 ANXIETY DISORDER, UNSPECIFIED 07/23/2018 WILIAM DELGADO MD, Ot F42.9 OBSESSIVE-COMPULSIVE DISORDER, UNSPECIFI 07/23/2018 WILIAM DELGADO MD Ot F91.3 OPPOSITIONAL DEFIANT DISORDER 07/23/2018 WILIAM DELGADO MD Ot I10 ESSENTIAL (PRIMARY) HYPERTENSION 07/23/2018 WILIAM DELGADO MD Ot K21.9 GASTRO-ESOPHAGEAL REFLUX DISEASE WITHOUT 07/23/2018 WILIAM DELGADO MD Ot K31.84 GASTROPARESIS 07/23/2018 WILIAM DELGADO MD, Ot R10.12 LEFT UPPER QUADRANT PAIN 07/23/2018 WILIAM DELGADO MD Ot R65.20 SEVERE SEPSIS WITHOUT SEPTIC SHOCK 07/23/2018 WILIAM DELGADO MD, Ot Z68.44 BODY MASS INDEX (BMI) 60.0-69.9, ADULT 07/23/2018 WILIAM DELGADO MD, Ot Z79.01 PHYSICIANS [employer] (CURRENT) USE OF ANTICOAGULANT 07/23/2018 WILIAM DELGADO MD, Ot Z86.711 PERSONAL HISTORY OF PULMONARY EMBOLISM 07/23/2018 WILIAM DELGADO MD, Ot Z86.73 PRSNL HX OF TIA (TIA), AND CEREB INFRC W 07/23/2018 WILIAM DELGADO MD, Ot Z87.19 PERSONAL HISTORY OF OTHER DISEASES OF TH 07/23/2018 WILIAM DELGADO MD, Ot Z87.448 PERSONAL HISTORY OF OTHER DISEASES OF UR 07/23/2018 WILIAM DELGADO MD, Ot Z88.8 ALLERGY STATUS TO [facility] DRUG/MEDS/BIOL SUB 07/23/2018 WILIAM DELGADO MD, Ot Z90.89 ACQUIRED ABSENCE OF OTHER ORGANS Procedures There is no data. Results Test [...] measurement by glucometer (mass/volume) 171 mg/dL 70-110 Complete blood count (CBC) with automated white blood cell (WBC) differential - 07/20/18 18:30 Blood leukocytes automated count (number/volume) 19.1 10*3/uL 4.3-11.0 Blood erythrocytes automated count (number/volume) 6.46 10*6/uL 4.35-5.85 Venous blood hemoglobin measurement (mass/volume) 14.8 g/dL 11.5-16.0 Blood hematocrit (volume fraction) 47 % 35-52 Automated erythrocyte mean corpuscular volume 72 [foz_us] 80-99 Automated erythrocyte mean corpuscular hemoglobin (mass per erythrocyte) 23 pg 25-34 Automated erythrocyte mean corpuscular hemoglobin concentration measurement ( mass/volume) 32 g/dL 32-36 Automated erythrocyte distribution width ratio 19.2 % 10.0-14.5 Automated blood platelet count (count/volume) 646 10*3/uL 130-400 Automated blood platelet mean volume measurement 9.9 [foz_us] 7.4-10.4 Automated blood neutrophils/100 leukocytes 90 % 42-75 Automated blood lymphocytes/100 leukocytes 7 % 12-44 Blood monocytes/100 leukocytes 3 % 0-12 Automated blood eosinophils/100 leukocytes 0 % 0-10 Automated blood basophils/100 leukocytes 0 % 0-10 Blood neutrophils automated count (number/volume) 17.1 10*3 1.8-7.8 Blood lymphocytes automated count (number/volume) 1.4 10*3 1.0-4.0 Blood monocytes automated count (number/volume) 0.5 10*3 0.0-1.0 Automated eosinophil count 0.0 10*3/uL 0.0-0.3 Automated blood basophil count (count/volume) 0.1 10*3/uL 0.0-0.1 Serum or plasma choriogonadotropin ( test) detection - 07/20/18 18:30 Serum or plasma choriogonadotropin ( test) detection NEGATIVE NEGATIVE PT panel in platelet poor plasma by coagulation assay - 07/20/18 18:30 Prothrombin time (PT) in platelet poor plasma by coagulation assay 27.3 s 12.2-14.7 INR in platelet poor plasma or blood by coagulation assay 2.5 0.8-1.4 Activated partial thromboplastin time (aPTT) in platelet poor plasma bycoagulation assay - 07/20/18 18:30 Activated partial thromboplastin time (aPTT) in platelet poor plasma bycoagulation assay 39 s 24-35 Blood lactic acid measurement (moles/volume) - 07/20/18 18:30 Blood lactic acid measurement (moles/volume) 5.97 mmol/L 0.50-2.00 Comprehensive metabolic panel - 07/20/18 18:30 Serum or plasma sodium measurement (moles/volume) 139 mmol/L 135-145 Serum or plasma potassium measurement (moles/volume) 4.2 mmol/L 3.6-5.0 Serum or plasma chloride measurement (moles/volume) 102 mmol/L 98-107 Carbon dioxide 17 mmol/L 21-32 Serum or plasma anion gap determination (moles/volume) 20 mmol/L 5-14 Serum or plasma urea nitrogen measurement (mass/volume) 17 mg/dL 7-18 Serum or plasma creatinine measurement (mass/volume) 1.27 mg/dL 0.60-1.30 Serum or plasma urea nitrogen/creatinine mass ratio 13 NRG Serum or plasma creatinine measurement with calculation of estimated glomerular filtration rate 48 NRG Serum or plasma glucose measurement (mass/volume) 238 mg/dL 70-105 Serum or plasma calcium measurement (mass/volume) 10.6 mg/dL 8.5-10.1 Serum or plasma total bilirubin measurement (mass/volume) 0.7 mg/dL 0.1-1.0 Serum or plasma alkaline phosphatase measurement (enzymatic activity/volume) 98 U/L 40-136 Serum or plasma aspartate aminotransferase measurement (enzymatic activity/ volume) 22 U/L 5-34 Serum or plasma alanine aminotransferase measurement (enzymatic activity/volume ) 17 U/L 0-55 Serum or plasma protein measurement (mass/volume) 8.4 g/dL 6.4-8.2 Serum or plasma albumin measurement (mass/volume) 4.8 g/dL 3.2-4.5 Magnesium - 07/20/18 18:30 Magnesium 2.0 mg/dL 1.8-2.4 Serum or plasma C reactive protein measurement (mass/volume) - 07/20/18 18:30 Serum or plasma C reactive protein measurement (mass/volume) 2.26 mg /dL 0.00-0.50 Serum heterophile antibody titer - 07/20/18 18:30 Serum heterophile antibody titer NEGATIVE NEGATIVE Blood manual differential performed detection - 07/20/18 18:30 Blood monocytes/100 leukocytes 5 % NRG Manual blood segmented neutrophils/100 leukocytes 85 % NRG Blood band neutrophils/100 leukocytes 1 % NRG Manual blood lymphocytes/100 leukocytes 8 % NRG Manual eosinophils/100 leukocytes in nose 0 % NRG Manual blood basophils/100 leukocytes 1 % NRG Blood erythrocyte morphology finding identification NORMAL NRG Serum or plasma troponin i.cardiac measurement (mass/volume) - 07/20/18 18:30 Serum or plasma troponin i.cardiac measurement (mass/volume) < ng/ mL <0.028 Bacterial blood culture - 07/20/18 18:30 Bacterial blood culture NG NRG Bacterial blood culture - 07/20/18 18:58 QUANTITY OF GROWTH . NRG Bacterial blood culture SEE COMMEN NRG Influenza virus A and B antigen detection - 07/20/18 19:19 FLU RESULT NEGATIVE FOR INFLUENZA A AND B ANTIGENS BY IA NRG Capillary blood glucose measurement by glucometer (mass/volume) - 07/20/18 19: 52 Capillary blood glucose measurement by glucometer (mass/volume) 172 mg/dL 70-110 Serum or plasma lactate measurement (moles/volume) - 07/20/18 20:45 Serum or plasma lactate measurement (moles/volume) 2.00 mmol/L 0.50-2.00 Complete urinalysis with reflex to culture - 07/20/18 23:05 Urine color determination YELLOW NRG Urine clarity determination CLEAR NRG Urine pH measurement by test strip 5 5-9 Specific gravity of urine by test strip 1.010 1.016- 1.022 Urine protein assay by test strip, semi-quantitative 2+ NEGATIVE Urine glucose detection by automated test strip 2+ NEGATIVE Erythrocytes detection in urine sediment by light microscopy NEGATIVE NEGATIVE Urine ketones detection by automated test strip 2+ NEGATIVE Urine nitrite detection by test strip NEGATIVE NEGATIVE Urine total bilirubin detection by test strip NEGATIVE NEGATIVE Urine urobilinogen measurement by automated test strip (mass/volume) 1 mg/dL NORMAL Urine leukocyte esterase detection by dipstick 1+ NEGATIVE Automated urine sediment erythrocyte count by microscopy (number/high power field) NONE NRG Automated urine sediment leukocyte count by microscopy (number/high power field ) [HPF] NRG Bacteria detection in urine sediment by light microscopy TRACE NRG Squamous epithelial cells detection in urine sediment by light microscopy 0-2 NRG Crystals detection in urine sediment by light microscopy NONE NRG Casts detection in urine sediment by light microscopy PRESENT NRG Mucus detection in urine sediment by light microscopy SMALL NRG Complete urinalysis with reflex to culture NO NRG Hyaline casts detection in urine sediment by light microscopy 10-25 NRG Urine drug screening test - 07/20/18 23:05 Urine phencyclidine detection by screening method POSITIVE NEGATIVE Urine benzodiazepines detection by screening method [...] detection NEGATIVE NEGATIVE Bacterial urine culture - 07/20/18 23:05 Bacterial urine culture NG NRG Complete blood count (CBC) with automated white blood cell (WBC) differential - 07/21/18 00:13 Blood leukocytes automated count (number/volume) 12.6 10*3/uL 4.3-11.0 Blood erythrocytes automated count (number/volume) 5.94 10*6/uL 4.35-5.85 Venous blood hemoglobin measurement (mass/volume) 14.0 g/dL 11.5-16.0 Blood hematocrit (volume fraction) 42 % 35-52 Automated erythrocyte mean corpuscular volume 70 [foz_us] 80-99 Automated erythrocyte mean corpuscular hemoglobin (mass per erythrocyte) 24 pg 25-34 Automated erythrocyte mean corpuscular hemoglobin concentration measurement ( mass/volume) 34 g/dL 32-36 Automated erythrocyte distribution width ratio 18.1 % 10.0-14.5 Automated blood platelet count (count/volume) 462 10*3/uL 130-400 Automated blood platelet mean volume measurement 9.5 [foz_us] 7.4-10.4 Automated blood neutrophils/100 leukocytes 81 % 42-75 Automated blood lymphocytes/100 leukocytes 12 % 12-44 Blood monocytes/100 leukocytes 7 % 0-12 Automated blood eosinophils/100 leukocytes 0 % 0-10 Automated blood basophils/100 leukocytes 0 % 0-10 Blood neutrophils automated count (number/volume) 10.2 10*3 1.8-7.8 Blood lymphocytes automated count (number/volume) 1.6 10*3 1.0-4.0 Blood monocytes automated count (number/volume) 0.8 10*3 0.0-1.0 Automated eosinophil count 0.0 10*3/uL 0.0-0.3 Automated blood basophil count (count/volume) 0.0 10*3/uL 0.0-0.1 Serum or plasma creatine kinase measurement (enzymatic activity/volume) - 07/21 00:13 Serum or plasma creatine kinase measurement (enzymatic activity/volume) 307 U/L 29-168 Lipase - 07/21/18 00:13 Lipase 9 U/L 8-78 Encounters ACCT No. Visit Date/Time Discharge Status Pt. Type Provider Facility Loc./Unit Complaint [id number] 07/20/2018 18:15:00 2018 01:30:00 DIS Outpatient DANNY LLAMAS, WILIAM Malone [facility] ABD PAIN [id number] 07/01/2018 23:08:00 07/02/2018 02:46:00 DIS Emergency REZA LLAMAS, IBIS Quintero [facility] ABD PAIN [id number] 06/03/2018 10:07:00 06/03/2018 11:58:00 DIS Emergency JORGE THORNTON APRN [facility] ABD PAIN [id number] 05/26/2018 11:14:00 05/26/2018 14:39:00 DIS Emergency TERRENCEHUMATODD [facility] SEIZURE [id number] 08/21/2015 19:55:00 08/21/2015 22:59:00 DIS Emergency MUNA LINK DO [facility] ABDOMINAL PAIN [id number] 09/04/2018 21:24:00 ACT Emergency JORGE THORNTON APRN [facility] N/V/D
--- NOTE | 2018-09-04 21:35 | ED Abdominal Pain ---
General Stated Complaint: N/V/D Source of Information: Patient, EMS History of Present Illness Date Seen by Provider: Sep 04, 2018 Time Seen by Provider: 21:41 Initial Comments To ER per EMS from home with reports of nausea vomiting and abdominal pain since 2 PM today. She frequently uses marijuana and has been diagnosed with cyclic vomiting syndrome, is well-known to multiple hospitals around the area for this complaint. She has Xanax 2 mg tablets at home but states that she cannot keep them down because of nausea, oxycodone 10/325 as well as morphine sulfate 15 mg tab immediate release. She's been unable to keep these down as well because of the nausea and vomiting since 2 PM. She states that she's not had any marijuana for about 2 days. Timing/Duration: 4-6 Hours Severity/Quality: Moderate Radiation: No Radiation Activities at Onset: None Associated Symptoms: Nausea/Vomiting Allergies and Home Medications Allergies Coded Allergies: metformin (Verified Allergy, Unknown, 08/21/15) spironolactone (Verified Allergy, Unknown, 08/21/15) Home Medications Alprazolam 2 Mg Tablet, 2 MG PO Q6H PRN for ANXIETY, (Reported) Atorvastatin Calcium 40 Mg Tablet, 40 MG PO DAILY, (Reported) Buspirone HCl 15 Mg Tablet, 15 MG PO TID, (Reported) Fentanyl 1 Each Patch.td72, 50 MCG TD Q72H, (Reported) Hydrocodone/Acetaminophen 1 Each Tablet, 1 EACH PO Q6H, (Reported) Losartan/Hydrochlorothiazide 1 Each Tablet, 1 EACH PO DAILY, (Reported) Mirtazapine 15 Mg Tablet, 15 MG PO HS, (Reported) Naproxen 500 Mg Tablet, 500 MG PO BID, (Reported) Omeprazole 20 Mg Tablet.dr, 20 MG PO BID, (Reported) Ondansetron 4 Mg Tab.rapdis, 4 MG SL Q4H PRN for NAUSEA/VOMITING Prescribed by: IBIS NOEL on 07/02/18 0239 Oxycodone HCl/Acetaminophen 1 Each Tablet, 1 EACH PO Q6H, (Reported) Paroxetine HCl 30 Mg Tablet, 30 MG PO DAILY, (Reported) Paroxetine HCl 20 Mg Tablet, 20 MG PO DAILY, (Reported) Pregabalin 300 Mg Capsule, 300 MG PO Q12H, (Reported) Prochlorperazine Maleate 25 Mg Supp.rect, 25 MG RC Q8H PRN for NAUSEA/VOMITING Prescribed by: JORGE THORNTON on 06/03/18 1148 Promethazine HCl 50 Mg Supp.rect, 50 MG RC Q4H Prescribed by: MUNA LINK on 08/21/152217 Ropinirole HCl 0.5 Mg Tablet, 0.5 MG PO Q8H, (Reported) Scopolamine 1 Each Patch.td72, 1 EACH TD Q72 HOURS Prescribed by: MUNA LINK on 08/21/152217 Sitagliptin Phosphate 100 Mg Tablet, 100 MG PO DAILY, (Reported) Warfarin Sodium 10 Mg Tablet, 10 MG PO DAILY, (Reported) Warfarin Sodium 1 Mg Tablet, 3 MG PO DAILY, (Reported) Zolpidem Tartrate 10 Mg Tablet, 10 MG PO HS PRN for INSOMNIA, (Reported) Patient Home Medication List Home Medication List Reviewed: Yes Review of Systems Review of Systems Constitutional: see HPI EENTM: No Symptoms Reported Respiratory: No Symptoms Reported Cardiovascular: No Symptoms Reported Gastrointestinal: See HPI, Abdominal Pain Genitourinary: No Symptoms Reported Musculoskeletal: no symptoms reported Skin: no symptoms reported Psychiatric/Neurological: No Symptoms Reported Endocrine: No Symptoms Reported Hematologic/Lymphatic: No Symptoms Reported Past Kcdfpwv-Pctrrs-Uobeys Hx Patient Social History Drug of Choice: MARIJUANA 2nd Hand Smoke Exposure: No Recent Foreign Travel: No Contact w/Someone Who Travel: No Past Medical History Surgeries: Yes (EGD) Gallbladder Respiratory: Yes Pulmonary Embolism Cardiac: Yes High Cholesterol, Hypertension Neurological: Yes ("CVA" X 2--NO RESIDUAL, PER PT. QUESTION IF ACTUALLY TIA'S) Stroke Reproductive Disorders: Yes Female Reproductive Disorders: Endometriosis, Polycystic Ovarian Dis Genitourinary: No Gastrointestinal: Yes (esophageal hernia; gastroparesis, chronic abdominal pain ) Gastroesophageal Reflux, Ulcer Musculoskeletal: Yes (CHRONIC KNEE PAIN, RESTLESS LEG SYNDROME) Fibromyalgia Endocrine: Yes (MORBID OBESITY--> 400 LBS. ) Diabetes, Insulin dep Cancer: No Psychosocial: Yes (OCD, opiod dependence) Anxiety, ODD, Depression Integumentary: No Blood Disorders: Yes (ANEMIA) Adverse Reaction/Blood Tranf: No Physical Exam Vital Signs Vital Signs - First Documented 09/04/18 21:24 Temp 97.8 Pulse 81 Resp 22 B/P (MAP) 144/114 (124) Pulse Ox 98 O2 Delivery Room Air Capillary Refill : Height/Weight/BMI Height: 5'5.00" Weight: 400lbs. 0oz. [id number]; 69.88 BMI Method:Stated General Appearance: WD/WN, no apparent distress, obese, other (ambulatory into the emergency room from the ambulance moaning. States "please help me I'm having a panic attack".) HEENT: PERRL/EOMI, normal ENT inspection Respiratory: normal breath sounds, no respiratory distress, no accessory muscle use Cardiovascular: regular rate, rhythm, no murmur Gastrointestinal: normal bowel sounds, soft, tenderness Extremities: normal range of motion, non-tender Neurologic/Psychiatric: alert, normal mood/affect, oriented x 3 Skin: normal color, warm/dry Progress/Results/Core Measures Results/Orders Lab Results Laboratory Tests Test 09/04/18 21:29 09/04/18 21:57 Range/Units White Blood Count 16.0 H 4.3-11.0 10^3/uL Red Blood Count 5.77 4.35-5.85 10^6/uL Hemoglobin 13.1 11.5-16.0 G/DL Hematocrit 41 35-52 % Mean Corpuscular Volume 71 L 80-99 FL Mean Corpuscular Hemoglobin 23 L 25-34 PG Mean Corpuscular Hemoglobin Concent 32 32-36 G/DL Red Cell Distribution Width 18.6 H 10.0-14.5 % Platelet Count 536 H 130-400 10^3/uL Mean Platelet Volume 9.7 7.4-10.4 FL Neutrophils (%) (Auto) 80 H 42-75 % Lymphocytes (%) (Auto) 13 12-44 % Monocytes (%) (Auto) 4 0-12 % Eosinophils (%) (Auto) 2 0-10 % Basophils (%) (Auto) 0 0-10 % Neutrophils # (Auto) 12.9 H 1.8-7.8 X 10^3 Lymphocytes # (Auto) 2.1 1.0-4.0 X 10^3 Monocytes # (Auto) 0.7 0.0-1.0 X 10^3 Eosinophils # (Auto) 0.3 0.0-0.3 10^3/uL Basophils # (Auto) 0.0 0.0-0.1 10^3/uL Neutrophils % (Manual) 76 % Lymphocytes % (Manual) 16 % Monocytes % (Manual) 3 % Eosinophils % (Manual) 3 % Reactive Lymphocytes 2 % Blood Morphology Comment NORMAL Prothrombin Time 16.5 H 12.2-14.7 SEC INR Comment 1.3 0.8-1.4 Sodium Level 140 135-145 MMOL/L Potassium Level 3.9 3.6-5.0 MMOL/L Chloride Level 105 98-107 MMOL/L Carbon Dioxide Level 18 L 21-32 MMOL/L Anion Gap 17 H 5-14 MMOL/L Blood Urea Nitrogen 18 7-18 MG/DL Creatinine 0.86 0.60-1.30 MG/DL Estimat Glomerular Filtration Rate > 60 BUN/Creatinine Ratio 21 Glucose Level 258 H 70-105 MG/DL Calcium Level 9.8 8.5-10.1 MG/DL Corrected Calcium 9.6 8.5-10.1 MG/DL Total Bilirubin 0.5 0.1-1.0 MG/DL Aspartate Amino Transf (AST/SGOT) 10 5-34 U/L Alanine Aminotransferase (ALT/SGPT) 22 0-55 U/L Alkaline Phosphatase 115 40-136 U/L Total Protein 7.5 6.4-8.2 GM/DL Albumin 4.2 3.2-4.5 GM/DL Lipase 12 8-78 U/L Serum Test, Qualitative NEGATIVE NEGATIVE Urine Color KELSEY H Urine Clarity SLIGHTLY CLOUDY Urine pH 6 5-9 Urine Specific [place] 1.020 1.016-1.022 Urine Protein 3+ H NEGATIVE Urine Glucose (UA) 3+ H NEGATIVE Urine Ketones 2+ H NEGATIVE Urine Nitrite POSITIVE H NEGATIVE Urine Bilirubin 1+ H NEGATIVE Urine Urobilinogen 4 H NORMAL MG/DL Urine Leukocyte Esterase 2+ H NEGATIVE Urine RBC (Auto) NEGATIVE NEGATIVE Urine RBC NONE /HPF Urine WBC 5-10 H /HPF Urine Squamous Epithelial Cells 5-10 /HPF Urine Crystals NONE /LPF Urine Bacteria FEW H /HPF Urine Casts PRESENT /LPF Urine Hyaline Casts 5-10 H /LPF Urine Mucus LARGE H /LPF Urine Culture Indicated YES Urine Opiates Screen POSITIVE H NEGATIVE Urine Oxycodone Screen NEGATIVE NEGATIVE Urine Methadone Screen NEGATIVE NEGATIVE Urine Propoxyphene Screen NEGATIVE NEGATIVE Urine Barbiturates Screen NEGATIVE NEGATIVE Ur Tricyclic Antidepressants Screen POSITIVE H NEGATIVE Urine Phencyclidine Screen POSITIVE H NEGATIVE Urine Amphetamines Screen NEGATIVE NEGATIVE Urine Methamphetamines Screen NEGATIVE NEGATIVE Urine Benzodiazepines Screen POSITIVE H NEGATIVE Urine Cocaine Screen NEGATIVE NEGATIVE Urine Cannabinoids Screen POSITIVE H NEGATIVE My Orders Orders - JORGE THORNTON APRN Diphenhydramine Injection (Benadryl Inje (09/04/18 21:26) Haloperidol Injection (Haldol Injectio (09/04/18 21:26) Ns Iv 1000 Ml (Sodium Chloride 0.9%) (09/04/18 21:26) Ns Iv 1000 Ml (Sodium Chloride 0.9%) (09/04/18 21:45) Haloperidol Injection (Haldol Injectio (09/04/18 21:45) Diphenhydramine Injection (Benadryl Inje (09/04/18 21:45) Cbc With Automated Diff (09/04/18 21:33) Comprehensive Metabolic Panel (09/04/18 21:33) Ua Culture If Indicated (09/04/18 21:33) Drug Screen Stat (Urine) (09/04/18 21:33) Lipase (09/04/18 21:33) Hcg,Qualitative Serum (09/04/18 21:33) Protime With Inr (09/04/18 21:33) Manual Differential (09/04/18 21:29) Morphine Injection (Morphine Injection (09/04/18 22:18) Urine Culture (09/04/18 21:57) Ceftriaxone For Iv Use (Rocephin For I (09/04/18 22:30) Medications Given in ED Current Medications Medications Dose Ordered Sig/Bceki Route Start Time Stop Time Status Last Admin Dose Admin Ceftriaxone Sodium 1000 mg/ Sterile Water 10 ml @ 200 mls/hr ONCE ONCE IV 09/04/18 22:30 09/04/18 22:32 09/04/18 22:27 200 MLS/HR Diphenhydramine HCl 50 mg ONCE ONCE IVP 09/04/18 21:45 09/04/18 21:46 DC 09/04/18 21:30 50 MG Haloperidol Lactate 5 mg ONCE ONCE IV 09/04/18 21:45 09/04/18 21:46 DC 09/04/18 21:30 5 MG Vital Signs/I&O 09/04/18 21:24 Temp 97.8 Pulse 81 Resp 22 B/P (MAP) 144/114 (124) Pulse Ox 98 O2 Delivery Room Air Departure Communication (Admissions) 2143-50 mg of Benadryl given IV push, 5 mg of Haldol mixed into her liter of normal saline infusing per gravity. She has not had a single episode of dry heaving or vomiting during her stay. Impression Primary Impression: Recurrent generalized abdominal pain Additional Impression: Urinary tract infection Disposition: 01 HOME, SELF-CARE Condition: Stable Departure-Patient Inst. Decision time for Depature: 22:20 Referrals: NO,LOCAL PHYSICIAN (PCP/Family) Primary Care Physician Patient Instructions: CHRONIC PAIN, Urinary Tract Infection, Adult (DC) Add. Discharge Instructions: Completely stop all marijuana use for 2 months and you'll notice that these episodes of recurrent abdominal pain go away. Take the antibiotics as directed for the bladder infection. JORGE THORNTON [employer] Sep 04, 2018 21:35
[2018-09-04 21:40] LABS: BASOPHILS % (AUTO) 0 % (0-10); EOSINOPHILS # (AUTO) 0.3 10^3/uL (0.0-0.3); EOSINOPHILS % (AUTO) 2 % (0-10); HEMATOCRIT 41 % (35-52); HEMOGLOBIN 13.1 G/DL (11.5-16.0); LYMPHOCYTES # (AUTO) 2.1 X 10^3 (1.0-4.0); LYMPHOCYTES % (AUTO) 13 % (12-44); MEAN CORPUSCULAR HEMOGLOBIN 23 PG (25-34); MEAN CORPUSCULAR HGB CONC 32 G/DL (32-36); MEAN CORPUSCULAR VOLUME 71 FL (80-99); MEAN PLATELET VOLUME 9.7 FL (7.4-10.4); MONOCYTES # (AUTO) 0.7 X 10^3 (0.0-1.0); MONOCYTES % (AUTO) 4 % (0-12); NEUTROPHILS # (AUTO) 12.9 X 10^3 (1.8-7.8); NEUTROPHILS % (AUTO) 80 % (42-75); PLATELET COUNT 536 10^3/uL (130-400); RED CELL DISTRIBUTION WIDTH 18.6 % (10.0-14.5)
[2018-09-04] MEDS ORDERED: diphenhydrAMINE 50 MG/ML INJ (BENADRYL) IVP ONE (21:45)
[2018-09-04] MEDS ORDERED: NS IV 1000 ML 1,000 ML IV SCH (21:45)
[2018-09-04] MEDS ORDERED: HALOPERIDOL 5 MG/ML (HALDOL) AMP IV ONE (21:45)
[2018-09-04 21:53] LABS: INR 1.3 (0.8-1.4); PROTHROMBIN TIME PATIENT 16.5 SEC (12.2-14.7)
[2018-09-04 22:01] LABS: ALANINE AMINOTRANSFERASE 22 U/L (0-55); ALBUMIN 4.2 GM/DL (3.2-4.5); ALKALINE PHOSPHATASE 115 U/L (40-136); BILIRUBIN,TOTAL 0.5 MG/DL (0.1-1.0); BUN/CREATININE RATIO 21; CALCIUM 9.8 MG/DL (8.5-10.1); CARBON DIOXIDE 18 MMOL/L (21-32); CHLORIDE 105 MMOL/L (98-107); CREATININE SERUM 0.86 MG/DL (0.60-1.30); GFR ESTIMATED > 60; GLUCOSE 258 MG/DL (70-105); LIPASE 12 U/L (8-78); POTASSIUM 3.9 MMOL/L (3.6-5.0); SODIUM 140 MMOL/L (135-145); TOTAL PROTEIN 7.5 GM/DL (6.4-8.2)
[2018-09-04 22:03] LABS: CLARITY,URINE SLIGHTLY CLOUDY; COLOR,URINE AMBER; GLUCOSE, URINE (UA) 3+ (NEGATIVE); KETONES,URINE 2+ (NEGATIVE); LEUKOCYTE ESTERASE ,URINE 2+ (NEGATIVE); NITRITE,URINE POSITIVE (NEGATIVE); PH,URINE 6 (5-9); PROTEIN,URINE 3+ (NEGATIVE); UROBILINOGEN,URINE 4 MG/DL (NORMAL)
[2018-09-04 22:15] LABS: AMPHETAMINE SCREEN, URINE NEGATIVE (NEGATIVE); BARBITURATE SCREEN URINE NEGATIVE (NEGATIVE); BENZODIAZEPINES SCREEN URINE POSITIVE (NEGATIVE); CANNABINOID SCREEN, URINE POSITIVE (NEGATIVE); COCAINE SCREEN URINE NEGATIVE (NEGATIVE); METHADONE STAT NEGATIVE (NEGATIVE); METHAMPHETAMINE SCREEN URINE S NEGATIVE (NEGATIVE); OPIATE SCREEN URINE POSITIVE (NEGATIVE); OXYCODONE STAT NEGATIVE (NEGATIVE); PROPOXYPHENE STAT NEGATIVE (NEGATIVE); TRICYCLIC ANTIDEPRESSANTS SCRE POSITIVE (NEGATIVE)
[2018-09-04 22:17] LABS: EOSINOPHILS % (MANUAL) 3 %; LYMPHOCYTES % (MANUAL) 16 %; MONOCYTES % (MANUAL) 3 %; NEUTROPHILS % (MANUAL) 76 %; RBC MORPH NORMAL; REACTIVE LYMPHOCYTES 2 %
[2018-09-04] MEDS ORDERED: morphine INJ 10 MG/ML 1ML (SYR OR VIAL) IVP STA (22:18)
[2018-09-04 22:20] LABS: BACTERIA,URINE FEW /HPF; BILIRUBIN,URINE 1+ (NEGATIVE)
[2018-09-04] MEDS ORDERED: cefTRIAXone FOR IV USE 1,000 MG in WATER (STERILE) FOR INJECTION 10 ML IV ONE (22:30)
[2018-09-04 22:52] VITALS: BP 125/97
== END 2018-09-04 22:52 | disposition home or self-care (01) ==
LOC: EDUNIT# 21:22 → ER 21:24
DX: N39.0 Urinary tract infection, site not specified (principal); E78.00 Pure hypercholesterolemia, unspecified; K21.9 Gastro-esophageal reflux disease without esophagitis; I10 Essential (primary) hypertension; G25.81 Restless legs syndrome; M79.7 Fibromyalgia; E11.9 Type 2 diabetes mellitus without complications; F41.9 Anxiety disorder, unspecified; F32.9 Major depressive disorder, single episode, unspecified; F91.3 Oppositional defiant disorder; F42.9 Obsessive-compulsive disorder, unspecified; D64.9 Anemia, unspecified; E66.9 Obesity, unspecified; F12.10 Cannabis abuse, uncomplicated; Z86.711 Personal history of pulmonary embolism; Z86.73 Personal history of transient ischemic attack (TIA), and cerebral infarction without residual deficits; Z68.44 Body mass index [BMI] 60.0-69.9, adult; Z87.19 Personal history of other diseases of the digestive system; Z87.448 Personal history of other diseases of urinary system; Z88.8 Allergy status to other drugs, medicaments and biological substances; Z79.01 Long term (current) use of anticoagulants
CPT/HCPCS: 36415; 80053; 80306; 81000; 83690; 84703; 85007; 85027; 85610; 87088

== ENCOUNTER 2018-11-04 22:23 | Emergency (ER) | payer MEDICARE, MEDICAID ==
[~2018-11-04] VITALS: Ht 162.6 cm; Wt 171.5 kg
--- OUTSIDE RECORDS SUMMARY | 2018-11-04 22:28 | XMS REPORT ---
Author Author ELKE LADONNA William [facility] BRANTLEY [facility] Address [address] [place] [address] Care Team Providers Care Associate Professor Of Engineering Name Role Phone LADONNA BEDOYA Unavailable PROBLEMS Type Condition ICD9-CM Code [id number] Code Onset Dates Condition Status SNOMED Code Problem OCD (obsessive compulsive disorder) F42.9 Active 806396647 Problem Diabetic gastroparesis E11.43 Active 428683991 Problem Uncontrolled diabetes mellitus E11.65 Active 831256440 Problem Cigarette nicotine dependence F17.200 Active 363142955 Problem Vitamin D deficiency E55.9 Active 24467644 Problem Major depression F32.9 Active 686718255 Problem Restless leg syndrome G25.81 Active 34067325 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 92626909 Problem Morbid obesity E66.01 Active 476461095 Problem Essential (primary) hypertension I10 Active 67444181 Problem Hypoxia R09.02 Active 415536916 Problem Pulmonary embolism I26.99 Active 58199711 Problem Anxiety F41.9 Active 66274708 Problem Patient's noncompliance with other medical treatment and regimen Z91.19 Active 4949729 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 Active 586489211 ALLERGIES Substance Reaction Event Type Date Status Darvocet-N 100 nausea and vomiting Drug Allergy Jul, Active Avandia nausea and vomiting Drug Allergy Jul, Active Abilify anxiety Drug Allergy Jul, Active Spironolactone nausea and vomiting Drug Allergy Jul, Active Morphine Sulfate itching Drug Allergy Jul, Active Metformin HCl nausea and vomiting Drug Allergy Jul, Active Haloperidol unknown Drug Allergy Jul, Active ENCOUNTERS Encounter Location Date Diagnosis [address] [id number] September, [address] [address] September, [address] [address] Jul, [address] [address] Jun, [address] [address] Jun, [facility] [id number] [place] [address] Jun, IMMUNIZATIONS No Known Immunizations SOCIAL HISTORY Never Assessed REASON FOR VISIT PLAN OF CARE VITAL SIGNS MEDICATIONS Medication Instructions Dosage Frequency Start Date End Date Duration Status Coumadin 10 MG Orally Once a day 1 tablet 24h 30 day(s) Active Paxil 20 MG Orally Once a day 1 tablet in the morning 24h 30 day(s) Active Cyclobenzaprine HCl 10 MG Orally Three times a day 0.5 - 1 tablet as needed 8h Active Mirtazapine 30 MG Orally Once a day 1 tablet at bedtime 24h 30 day(s) Active Hyzaar 100-25 MG Orally Once a day 1 tablet 24h 30 day(s) Active Morphine Sulfate 15 MG Orally Once a day prn 1 tablet as needed Jun, 30 days Active Oxygen Active Hyoscyamine Sulfate 0.125 MG Orally every 4 hrs 1 tablet as needed 4h Active NovoLog Flexpen 100 UNIT/ML as directed Active Omeprazole 40 MG Orally Once a day 1 capsule 24h 30 day(s) Active Lyrica 300 MG Orally 2 times a day 1 capsule 12h Active Xanax 2 MG Orally TID PRN 0.5 - 1 tablet Active Dicyclomine HCl 20 MG Orally Four times a day 1 tablet 6h 30 day(s) Active Zofran 4 MG as directed Active Lipitor 40 MG Orally Once a day 1 tablet 24h 30 day(s) Active Oxycodone-Acetaminophen 10-325 MG Orally q 4 hours prn pain 1 tablet as needed Jun, 30 days Active Albuterol Sulfate HFA 108 (90 Base) MCG/ACT Inhalation every 6 hrs 2 puffs as needed 6h Active Seroquel 100 MG Orally Once a day 1 tablet 24h 30 day(s) Active MiraLax - Orally Once a day 1 packet mixed with 8 ounces of fluid 24h 30 day(s) Active Januvia 100 MG Orally Once a day 1 tablet 24h 30 day(s) Active Coumadin 2 MG Orally Once a day 1 tablet 24h 30 day(s) Active Venlafaxine HCl ER 150 MG Orally Once a day 1 tablet with food 24h 30 day(s) Active Ambien 10 MG Orally Once a day 1 tablet at bedtime as needed 24h Active RESULTS No Results PROCEDURES No Known procedures INSTRUCTIONS MEDICATIONS ADMINISTERED No Known Medications MEDICAL (GENERAL) HISTORY Type Description Date Medical History Vitamin D deficiency Medical History Histrionic personality disorder Medical History Diabetic gastroparesis Medical History Major depression Medical History OCD (obsessive compulsive disorder) Medical History Uncontrolled diabetes mellitus Medical History Pulmonary embolism Medical History Anxiety Medical History oysterman (current) use of anticoagulants Medical History Cigarette nicotine dependence Medical History Patient's noncompliance with other medical treatment and regimen Medical History Hypoxia Medical History Morbid obesity Medical History Restless leg syndrome Medical History Essential (primary) hypertension
--- OUTSIDE RECORDS SUMMARY | 2018-11-04 22:29 | XMS REPORT | Continuity of Care Document ---
Author Organization Unknown Address Unknown Allergies Active Description Code Type Severity Reaction Onset Reported/Identified Relationship to Patient Clinical Status Yes metformin [id number] Drug Allergy Unknown N/A 08/21/2015 Yes spironolactone [id number] Drug Allergy Unknown N/A 08/21/2015 Medications There [...] TODD Ot I10 ESSENTIAL (PRIMARY) HYPERTENSION 05/26/2018 ARMIDA SCHMIDTIS Ot K21.9 GASTRO- ESOPHAGEAL REFLUX DISEASE WITHOUT 05/26/2018 BERNOT, TODD Ot R25.9 UNSPECIFIED ABNORMAL INVOLUNTARY MOVEMEN 05/26/2018 BERNOT, TODD Ot Z79.01 JAIL (CURRENT) USE OF ANTICOAGULANT 05/26/2018 BERNOT, TODD [...] (PRIMARY) HYPERTENSION 05/29/2018 BERNOT, TODD Ot K21.9 GASTRO- ESOPHAGEAL REFLUX DISEASE WITHOUT 05/29/2018 BERNOT, TODD Ot R25.9 UNSPECIFIED ABNORMAL INVOLUNTARY MOVEMEN 05/29/2018 BERNOT, TODD Ot Z79.01 JAIL (CURRENT) USE OF ANTICOAGULANT 05/29/2018 BERNOT, TODD [...] MAJOR DEPRESSIVE DISORDER, SINGLE EPISOD 06/03/2018 JORGE THRONTON APRN Ot F41.9 ANXIETY DISORDER, UNSPECIFIED 06/03/2018 JORGE THONRTON APRN Ot F91.3 OPPOSITIONAL DEFIANT DISORDER 06/03/2018 JORGE THORNTON APRN Ot I10 ESSENTIAL (PRIMARY) HYPERTENSION 06/03/2018 JORGE THORNTON APRN Ot K21.9 GASTRO-ESOPHAGEAL REFLUX DISEASE WITHOUT 06/03/2018 JORGE THORNTON APRN Ot R10.12 LEFT UPPER QUADRANT PAIN 06/03/2018 JORGE THORNTON APRN Ot R11.2 NAUSEA WITH VOMITING, UNSPECIFIED 06/03/2018 JORGE THORNTON APRN Ot Z79.01 BEATER DUMPER (CURRENT) USE OF ANTICOAGULANT 06/03/2018 JORGE THORNTON [...] UNSPECIFIED 06/05/2018 JORGE THORNTON APRN Ot Z79.01 BEATER DUMPER (CURRENT) USE OF ANTICOAGULANT 06/05/2018 JORGE THORNTON [...] PAIN 07/02/2018 IBIS COBB MD, Ot Z79.01 BEATER DUMPER (CURRENT) USE OF ANTICOAGULANT 07/02/2018 IBIS COBB MD, Ot Z79.84 JAIL (CURRENT) USE OF ORAL HYPOGLYC 07/02/2018 IBIS COBB MD, Ot Z86.711 PERSONAL HISTORY OF PULMONARY EMBOLISM 07/02/2018 IBIS COBB MD, Ot Z86.73 PRSNL HX OF TIA (TIA), AND CEREB INFRC W 07/02/2018 IBIS COBB MD, Ot Z88.[address] [facility] DRUG/MEDS/BIOL SUB 07/03/2018 IBIS COBB MD, Ot [...] PAIN 07/03/2018 IBIS COBB MD, Ot Z79.01 JAIL (CURRENT) USE OF ANTICOAGULANT 07/03/2018 IBIS COBB MD, Ot Z79.84 BEATER DUMPER (CURRENT) USE OF ORAL HYPOGLYC 07/03/2018 IBIS COBB MD, Ot Z86.711 PERSONAL HISTORY OF PULMONARY EMBOLISM 07/03/2018 IBIS COBB MD, Ot Z86.73 PRSNL HX OF TIA (TIA), AND CEREB INFRC W 07/03/2018 IBIS COBB MD, Ot Z88.[address] [facility] DRUG/MEDS/BIOL SUB 07/09/2018 IBIS COBB MD, Ot [...] PAIN 07/09/2018 IBIS COBB MD, Ot Z79.01 BEATER DUMPER (CURRENT) USE OF ANTICOAGULANT 07/09/2018 IBIS COBB MD Ot Z79.84 BEATER DUMPER (CURRENT) USE OF ORAL HYPOGLYC 07/09/2018 IBIS COBB MD, Ot Z86.711 PERSONAL HISTORY OF PULMONARY EMBOLISM 07/09/2018 IBIS COBB MD, Ot Z86.73 PRSNL HX OF TIA (TIA), AND CEREB INFRC W 07/09/2018 IBIS COBB MD Ot Z88.8 ALLERGY STATUS TO OT DRUG/MEDS/BIOL SUB 2018 WILIAM DELGADO MD Ot A41.9 SEPSIS, UNSPECIFIED ORGANISM 2018 WILIAM DELGADO MD Ot D64.9 ANEMIA, UNSPECIFIED 2018 WILIAM DELGADO MD Ot E11.43 TYPE 2 DIABETES W DIABETIC AUTONOMIC (PO 2018 WILIAM DELGADO MD Ot E66.01 MORBID (SEVERE) OBESITY DUE TO EXCESS CA 2018 WILIAM DELGADO MD Ot E78.00 PURE HYPERCHOLESTEROLEMIA, UNSPECIFIED 2018 WILIAM DELGADO MD Ot F12.10 CANNABIS ABUSE, UNCOMPLICATED 2018 WILIAM DELGADO MD Ot F17.200 NICOTINE DEPENDENCE, UNSPECIFIED, UNCOMP 2018 WILIAM DELGADO MD Ot F32.9 MAJOR DEPRESSIVE DISORDER, SINGLE EPISOD 2018 WILIAM DELGADO MD Ot F41.9 ANXIETY DISORDER, UNSPECIFIED 2018 WILIAM DELGADO MD Ot F42.9 OBSESSIVE-COMPULSIVE DISORDER, UNSPECIFI 2018 WILIAM DELGADO MD Ot F91.3 OPPOSITIONAL DEFIANT DISORDER 2018 WILIAM DELGADO MD Ot I10 ESSENTIAL (PRIMARY) HYPERTENSION 2018 WILIAM DELGADO MD Ot K21.9 GASTRO-ESOPHAGEAL REFLUX DISEASE WITHOUT 2018 WILIAM DELGADO MD Ot K31.84 GASTROPARESIS 2018 WILIAM DELGADO MD Ot R10.12 LEFT UPPER QUADRANT PAIN 2018 WILIAM DELGADO MD Ot R65.20 SEVERE SEPSIS WITHOUT SEPTIC SHOCK 2018 WILIAM DELGADO MD Ot Z68.44 BODY MASS INDEX (BMI) 60.0-69.9, ADULT 2018 WILIAM DELGADO MD Ot Z79.01 JAIL (CURRENT) USE OF ANTICOAGULANT 2018 WILIAM DELGADO MD Ot Z86.711 PERSONAL HISTORY OF PULMONARY EMBOLISM 2018 WILIAM DELGADO MD Ot Z86.73 PRSNL HX OF TIA (TIA), AND CEREB INFRC W 2018 WILIAM DELGADO MD Ot Z87.19 PERSONAL HISTORY OF OTHER DISEASES OF TH 2018 WILIAM DELGADO MD Ot Z87.448 PERSONAL HISTORY OF OTHER DISEASES OF UR 2018 WILIAM DELGADO MD Ot Z88.8 ALLERGY STATUS TO OT DRUG/MEDS/BIOL SUB 2018 WILIAM DELGADO MD Ot Z90.89 ACQUIRED ABSENCE OF OTHER ORGANS 07/23/2018 WILIAM DELGADO MD Ot A41.9 SEPSIS, [...] DEPRESSIVE DISORDER, SINGLE EPISOD 07/23/2018 WILIAM DELGADO MD Ot F41.9 ANXIETY DISORDER, UNSPECIFIED 07/23/2018 WILIAM DELGADO MD, Ot F42.9 OBSESSIVE-COMPULSIVE DISORDER, UNSPECIFI 07/23/2018 WILIAM DELGADO MD Ot F91.3 OPPOSITIONAL DEFIANT DISORDER 07/23/2018 WILIAM DELGADO MD Ot I10 ESSENTIAL (PRIMARY) HYPERTENSION 07/23/2018 WILIAM DELGADO MD Ot K21.9 GASTRO-ESOPHAGEAL REFLUX DISEASE WITHOUT 07/23/2018 WILIAM DELGADO MD Ot K31.84 GASTROPARESIS 07/23/2018 WILIAM DELGADO MD Ot R10.12 LEFT UPPER QUADRANT PAIN 07/23/2018 WILIAM DELGADO MD Ot R65.20 SEVERE SEPSIS WITHOUT SEPTIC SHOCK 07/23/2018 WILIAM DELGADO MD Ot Z68.44 BODY MASS INDEX (BMI) 60.0-69.9, ADULT 07/23/2018 WILIAM DELGADO MD Ot Z79.01 JAIL (CURRENT) USE OF ANTICOAGULANT 07/23/2018 WILIAM DELGADO MD Ot Z86.711 PERSONAL HISTORY OF PULMONARY EMBOLISM 07/23/2018 WILIAM DELGADO MD Ot Z86.73 PRSNL HX OF TIA (TIA), AND CEREB INFRC W 07/23/2018 WILIAM DELGADO MD Ot Z87.19 PERSONAL HISTORY OF OTHER DISEASES OF TH 07/23/2018 WILIAM DELGADO MD, Ot Z87.448 PERSONAL HISTORY OF OTHER DISEASES OF UR 07/23/2018 WILIAM DELGADO MD Ot Z88.[address] [facility] DRUG/MEDS/BIOL SUB 07/23/2018 WILIAM DELGADO MD Ot Z90.89 ACQUIRED ABSENCE OF OTHER ORGANS 09/04/2018 JORGE THORNTON APRN Ot D64.9 ANEMIA, UNSPECIFIED 09/04/2018 JORGE THORNTON APRN Ot E11.9 TYPE 2 DIABETES MELLITUS WITHOUT COMPLIC 09/04/2018 JORGE THORNTON APRN Ot E66.9 OBESITY, UNSPECIFIED 09/04/2018 JORGE THORNTON APRN Ot E78.00 PURE HYPERCHOLESTEROLEMIA, UNSPECIFIED 09/04/2018 JORGE THORNTON APRN Ot F12.10 CANNABIS ABUSE, UNCOMPLICATED 09/04/2018 JORGE THORNTON APRN Ot F32.9 MAJOR DEPRESSIVE DISORDER, SINGLE EPISOD 09/04/2018 JORGE THORNTON APRN Ot F41.9 ANXIETY DISORDER, UNSPECIFIED 09/04/2018 JORGE THORNTON APRN Ot F42.9 OBSESSIVE-COMPULSIVE DISORDER, UNSPECIFI 09/04/2018 JORGE THORNTON APRN Ot F91.3 OPPOSITIONAL DEFIANT DISORDER 09/04/2018 JORGE THORNTON APRN Ot G25.81 RESTLESS LEGS SYNDROME 09/04/2018 JORGE THORNTON APRN Ot I10 ESSENTIAL (PRIMARY) HYPERTENSION 09/04/2018 JORGE THONRTON APRN Ot K21.9 GASTRO-ESOPHAGEAL REFLUX DISEASE WITHOUT 09/04/2018 JORGE THORNTON APRN Ot M79.7 FIBROMYALGIA 09/04/2018 JORGE THORNTON APRN Ot N39.0 URINARY TRACT INFECTION, SITE NOT SPECIF 09/04/2018 JORGE THORNTON APRN Ot R11.2 NAUSEA WITH VOMITING, UNSPECIFIED 09/04/2018 JORGE THORNTON APRN Ot Z68.44 BODY MASS INDEX (BMI) 60.0-69.9, ADULT 09/04/2018 JORGE THORNTON APRN Ot Z79.01 BEATER DUMPER (CURRENT) USE OF ANTICOAGULANT 09/04/2018 JORGE THORNTON APRN Ot Z86.711 PERSONAL HISTORY OF PULMONARY EMBOLISM 09/04/2018 JORGE THORNTON APRN Ot Z86.73 PRSNL HX OF TIA (TIA), AND CEREB INFRC W 09/04/2018 JORGE THORNTON APRN Ot Z87.19 PERSONAL HISTORY OF OTHER DISEASES OF TH 09/04/2018 JORGE THORNTON APRN Ot Z87.448 PERSONAL HISTORY OF OTHER DISEASES OF UR 09/04/2018 JORGE THORNTON APRN Ot Z88.8 ALLERGY STATUS TO OT DRUG/MEDS/BIOL SUB 09/08/2018 JORGE THORNTON APRN Ot D64.9 ANEMIA, UNSPECIFIED 09/08/2018 JORGE THORNTON APRN Ot E11.9 TYPE 2 DIABETES MELLITUS WITHOUT COMPLIC 09/08/2018 JORGE THORNTON APRN Ot E66.9 OBESITY, UNSPECIFIED 09/08/2018 JORGE THORNTON APRN Ot E78.00 PURE HYPERCHOLESTEROLEMIA, UNSPECIFIED 09/08/2018 JORGE THORNTON APRN Ot F12.10 CANNABIS ABUSE, UNCOMPLICATED 09/08/2018 JORGE THORNTON APRN Ot F32.9 MAJOR DEPRESSIVE DISORDER, SINGLE EPISOD 09/08/2018 JORGE THORNTON APRN Ot F41.9 ANXIETY DISORDER, UNSPECIFIED 09/08/2018 JORGE THORNTON APRN Ot F42.9 OBSESSIVE-COMPULSIVE DISORDER, UNSPECIFI 09/08/2018 JORGE THORNTON APRN Ot F91.3 OPPOSITIONAL DEFIANT DISORDER 09/08/2018 JORGE THORNTON APRN Ot G25.81 RESTLESS LEGS SYNDROME 09/08/2018 JORGE THORNTON APRN Ot I10 ESSENTIAL (PRIMARY) HYPERTENSION 09/08/2018 JORGE THORNTON APRN Ot K21.9 GASTRO-ESOPHAGEAL REFLUX DISEASE WITHOUT 09/08/2018 JORGE THORNTON APRN Ot M79.7 FIBROMYALGIA 09/08/2018 JORGE THORNTON APRN Ot N39.0 URINARY TRACT INFECTION, SITE NOT SPECIF 09/08/2018 JORGE THORNTON APRN Ot R11.2 NAUSEA WITH VOMITING, UNSPECIFIED 09/08/2018 JORGE THORNTON APRN Ot Z68.44 BODY MASS INDEX (BMI) 60.0-69.9, ADULT 09/08/2018 JORGE THORNTON APRN Ot Z79.01 JAIL (CURRENT) USE OF ANTICOAGULANT 09/08/2018 JORGE THORNTON APRN Ot Z86.711 PERSONAL HISTORY OF PULMONARY EMBOLISM 09/08/2018 JORGE THORNTON APRN Ot Z86.73 PRSNL HX OF TIA (TIA), AND CEREB INFRC W 09/08/2018 JORGE THORNTON APRN Ot Z87.19 PERSONAL HISTORY OF OTHER DISEASES OF TH 09/08/2018 JORGE THORNTON APRN Ot Z87.448 PERSONAL HISTORY OF OTHER DISEASES OF UR 09/08/2018 JORGE THORNTON APRN Ot Z88.8 ALLERGY STATUS [...] Automated erythrocyte mean corpuscular hemoglobin concentration measurement (mass/volume) 32 g/dL 32-36 Automated erythrocyte distribution width ratio 18.5 % 10.0- 14.5 Automated blood platelet count (count/volume) 327 10*3/uL [...] Blood monocytes automated count (number/volume) 0.5 10*3 0.0- 1.0 Automated eosinophil count 0.4 10*3/uL 0.0-0.3 Automated [...] Serum or plasma aspartate aminotransferase measurement (enzymatic activity/volume) 14 U/L 5-34 Serum or plasma alanine aminotransferase measurement (enzymatic activity/volume) 17 U/L 0-55 Serum or plasma protein measurement (mass/volume) 6.9 g/dL 6.4-8.2 Serum or plasma albumin measurement (mass/volume) 3.9 g/dL 3.2-4.5 CALCIUM CORRECTED 9.0 mg/dL 8.5-10.1 Magnesium - 05/26/18 11:38 Magnesium 1.8 mg/dL 1.8-2.4 Serum or plasma troponin i.cardiac measurement (mass/volume) - 05/26/18 11:38 Serum or plasma troponin i.cardiac measurement (mass/volume) < ng/mL <0.30 PT panel in platelet poor plasma [...] or plasma troponin i.cardiac measurement (mass/volume) < ng/mL <0.30 Complete blood count (CBC) with automated [...] Automated erythrocyte mean corpuscular hemoglobin concentration measurement (mass/volume) 32 g/dL 32-36 Automated erythrocyte distribution width ratio 19.1 % 10.0- 14.5 Automated blood platelet count (count/volume) 483 10*3/uL [...] Blood monocytes automated count (number/volume) 0.6 10*3 0.0- 1.0 Automated eosinophil count 0.4 10*3/uL 0.0-0.3 Automated [...] Serum or plasma aspartate aminotransferase measurement (enzymatic activity/volume) 17 U/L 5-34 Serum or plasma alanine aminotransferase measurement (enzymatic activity/volume) 16 U/L 0-55 Serum or plasma protein [...] gravity of urine by test strip 1.020 1.016-1.022 Urine protein assay by test strip, semi-quantitative [...] sediment leukocyte count by microscopy (number/high power field) [HPF] NRG Bacteria detection in urine sediment [...] Serum or plasma aspartate aminotransferase measurement (enzymatic activity/volume) 21 U/L 5-34 Serum or plasma alanine aminotransferase measurement (enzymatic activity/volume) 12 U/L 0-55 Serum or plasma protein [...] Automated erythrocyte mean corpuscular hemoglobin concentration measurement (mass/volume) 34 g/dL 32-36 Automated erythrocyte distribution width ratio 18.3 % 10.0- 14.5 Automated blood platelet count (count/volume) 488 10*3/uL [...] Blood monocytes automated count (number/volume) 0.3 10*3 0.0- 1.0 Automated eosinophil count 0.0 10*3/uL 0.0-0.3 Automated [...] gravity of urine by test strip 1.025 1.016-1.022 Urine protein assay by test strip, semi-quantitative [...] sediment leukocyte count by microscopy (number/high power field) [HPF] NRG Bacteria detection in urine sediment [...] 07/02/18 00:52 Bacterial urine culture SEE [facility] COLONY COUNT . [facility] Capillary blood glucose measurement by glucometer (mass/volume) - 07/02/18 02:23 Capillary blood glucose measurement by glucometer (mass/volume) [...] Automated erythrocyte mean corpuscular hemoglobin concentration measurement (mass/volume) 32 g/dL 32-36 Automated erythrocyte distribution width ratio 19.2 % 10.0- 14.5 Automated blood platelet count (count/volume) 646 10*3/uL [...] Blood monocytes automated count (number/volume) 0.5 10*3 0.0- 1.0 Automated eosinophil count 0.0 10*3/uL 0.0-0.3 Automated [...] Blood lactic acid measurement (moles/volume) 5.97 mmol/L 0.50- 2.00 Comprehensive metabolic panel - 07/20/18 18:30 Serum [...] Serum or plasma aspartate aminotransferase measurement (enzymatic activity/volume) 22 U/L 5-34 Serum or plasma alanine aminotransferase measurement (enzymatic activity/volume) 17 U/L 0-55 Serum or plasma protein measurement (mass/volume) 8.4 g/dL 6.4-8.2 Serum or plasma albumin measurement (mass/volume) 4.8 g/dL 3.2-4.5 Magnesium - 07/20/18 18:30 Magnesium 2.0 mg/dL 1.8-2.4 Serum or plasma C reactive protein measurement (mass/volume) - 07/20/18 18:30 Serum or plasma C reactive protein measurement (mass/volume) 2.26 mg/dL 0.00-0.50 Serum heterophile antibody titer - 07/20/18 [...] or plasma troponin i.cardiac measurement (mass/volume) < ng/mL <0.028 Bacterial blood culture - 07/20/18 18:30 Bacterial blood culture NG NRG Bacterial blood culture - 07/20/18 18:58 QUANTITY OF GROWTH . NRG Bacterial blood culture SEE COMMEN NRG Influenza virus A and B antigen detection - 07/20/18 19:19 FLU RESULT NEGATIVE FOR INFLUENZA A AND B ANTIGENS BY IA NRG Capillary blood glucose measurement by glucometer (mass/volume) - 07/20/18 19:52 Capillary blood glucose measurement by glucometer (mass/volume) 172 mg/dL 70-110 Serum or plasma lactate measurement (moles/volume) - 07/20/18 20:45 Serum or plasma lactate measurement (moles/volume) 2.00 mmol/L 0.50-2.00 Complete urinalysis with reflex to culture - 07/20/18 23:05 Urine color determination YELLOW NRG Urine clarity determination CLEAR NRG Urine pH measurement by test strip 5 5-9 Specific gravity of urine by test strip 1.010 1.016-1.022 Urine protein assay by test strip, semi-quantitative [...] sediment leukocyte count by microscopy (number/high power field) [HPF] NRG Bacteria detection in urine sediment [...] Automated erythrocyte mean corpuscular hemoglobin concentration measurement (mass/volume) 34 g/dL 32-36 Automated erythrocyte distribution width ratio 18.1 % 10.0- 14.5 Automated blood platelet count (count/volume) 462 10*3/uL [...] Blood monocytes automated count (number/volume) 0.8 10*3 0.0- 1.0 Automated eosinophil count 0.0 10*3/uL 0.0-0.3 Automated blood basophil count (count/volume) 0.0 10*3/uL 0.0-0.1 Serum or plasma creatine kinase measurement (enzymatic activity/volume) - 07/21/18 00:13 Serum or plasma creatine kinase measurement (enzymatic activity/volume) 307 U/L 29-168 Lipase - 07/21/18 00:13 Lipase 9 U/L 8-78 Complete blood count (CBC) with automated white blood cell (WBC) differential - 09/04/18 21:29 Blood leukocytes automated count (number/volume) 16.0 10*3/uL 4.3-11.0 Blood erythrocytes automated count (number/volume) 5.77 10*6/uL 4.35-5.85 Venous blood hemoglobin measurement (mass/volume) 13.1 g/dL 11.5-16.0 Blood hematocrit (volume fraction) 41 % 35-52 Automated erythrocyte mean corpuscular volume 71 [foz_us] 80-99 Automated erythrocyte mean corpuscular hemoglobin (mass per erythrocyte) 23 pg 25-34 Automated erythrocyte mean corpuscular hemoglobin concentration measurement (mass/volume) 32 g/dL 32-36 Automated erythrocyte distribution width ratio 18.6 % 10.0- 14.5 Automated blood platelet count (count/volume) 536 10*3/uL 130-400 Automated blood platelet mean volume measurement 9.7 [foz_us] 7.4-10.4 Automated blood neutrophils/100 leukocytes 80 % 42-75 Automated blood lymphocytes/100 leukocytes 13 % 12-44 Blood monocytes/100 leukocytes 4 % 0-12 Automated blood eosinophils/100 leukocytes 2 % 0-10 Automated blood basophils/100 leukocytes 0 % 0-10 Blood neutrophils automated count (number/volume) 12.9 10*3 1.8-7.8 Blood lymphocytes automated count (number/volume) 2.1 10*3 1.0-4.0 Blood monocytes automated count (number/volume) 0.7 10*3 0.0- 1.0 Automated eosinophil count 0.3 10*3/uL 0.0-0.3 Automated blood basophil count (count/volume) 0.0 10*3/uL 0.0-0.1 PT panel in platelet poor plasma by coagulation assay - 09/04/18 21:29 Prothrombin time (PT) in platelet poor plasma by coagulation assay 16.5 s 12.2-14.7 INR in platelet poor plasma or blood by coagulation assay 1.3 0.8-1.4 Serum or plasma choriogonadotropin ( test) detection - 09/04/18 21:29 Serum or plasma choriogonadotropin ( test) detection NEGATIVE NEGATIVE Comprehensive metabolic panel - 09/04/18 21:29 Serum or plasma sodium measurement (moles/volume) 140 mmol/L 135-145 Serum or plasma potassium measurement (moles/volume) 3.9 mmol/L 3.6-5.0 Serum or plasma chloride measurement (moles/volume) 105 mmol/L 98-107 Carbon dioxide 18 mmol/L 21-32 Serum or plasma anion gap determination (moles/volume) 17 mmol/L 5-14 Serum or plasma urea nitrogen measurement (mass/volume) 18 mg/dL 7-18 Serum or plasma creatinine measurement (mass/volume) 0.86 mg/dL 0.60-1.30 Serum or plasma urea nitrogen/creatinine mass ratio 21 NRG Serum or plasma creatinine measurement with calculation of estimated glomerular filtration rate > NRG Serum or plasma glucose measurement (mass/volume) 258 mg/dL 70-105 Serum or plasma calcium measurement (mass/volume) 9.8 mg/dL 8.5-10.1 Serum or plasma total bilirubin measurement (mass/volume) 0.5 mg/dL 0.1-1.0 Serum or plasma alkaline phosphatase measurement (enzymatic activity/volume) 115 U/L 40-136 Serum or plasma aspartate aminotransferase measurement (enzymatic activity/volume) 10 U/L 5-34 Serum or plasma alanine aminotransferase measurement (enzymatic activity/volume) 22 U/L 0-55 Serum or plasma protein measurement (mass/volume) 7.5 g/dL 6.4-8.2 Serum or plasma albumin measurement (mass/volume) 4.2 g/dL 3.2-4.5 CALCIUM CORRECTED 9.6 mg/dL 8.5-10.1 Lipase - 09/04/18 21:29 Lipase 12 U/L 8-78 Blood manual differential performed detection - 09/04/18 21:29 Blood monocytes/100 leukocytes 3 % NRG Manual blood segmented neutrophils/100 leukocytes 76 % NRG Manual blood lymphocytes/100 leukocytes 16 % NRG Manual eosinophils/100 leukocytes in nose 3 % NRG Blood lymphocytes variant/100 leukocytes 2 % NRG Blood erythrocyte morphology finding identification NORMAL NRG Urine drug screening test - 09/04/18 21:57 Urine phencyclidine detection by screening method POSITIVE [...] screening method NEGATIVE NEGATIVE Urine oxycodone detection NEGATIVE NEGATIVE Urine propoxyphene detection NEGATIVE NEGATIVE Complete urinalysis with reflex to culture - 09/04/18 21:57 Urine color determination KELSEY NRG Urine clarity determination SLIGHTLY CLOUDY NRG Urine pH measurement by test strip 6 5-9 Specific gravity of urine by test strip 1.020 1.016-1.022 Urine protein assay by test strip, semi-quantitative 3+ NEGATIVE Urine glucose detection by automated test strip 3+ NEGATIVE Erythrocytes detection in urine sediment by light microscopy NEGATIVE NEGATIVE Urine ketones detection by automated test strip 2+ NEGATIVE Urine nitrite detection by test strip POSITIVE NEGATIVE Urine total bilirubin detection by test strip 1+ NEGATIVE Urine urobilinogen measurement by automated test strip (mass/volume) 4 mg/dL NORMAL Urine leukocyte esterase detection by dipstick 2+ NEGATIVE Automated urine sediment erythrocyte count by microscopy (number/high power field) NONE NRG Automated urine sediment leukocyte count by microscopy (number/high power field) [HPF] NRG Bacteria detection in urine sediment [...] urine sediment by light microscopy 5-10 NRG Bacterial urine culture - 09/04/18 21:57 Bacterial urine culture 3 OR MORE NRG COLONY COUNT 50,000 CFU/ML NRG FTX;REPORTABLE (GRAM POSITIVE) SUGGESTING PROBABLE NRG FREE TEXT ENTRY 2 COLLECTION CONTAMINATION WITH SKIN WILI NRG FREE TEXT ENTRY 3 NO SUSCEPTIBILITY PERFORMED NRG Encounters ACCT No. Visit Date/Time Discharge Status Pt. Type Provider Facility Loc./Unit Complaint [id number] 09/04/2018 21:24:00 09/04/2018 22:52:00 DIS Emergency JORGE THORNTON [employer] [facility] ER N/V/D [id number] 07/20/2018 18:15:00 2018 01:30:00 DIS Emergency DANNY LLAMAS, WILIAM Malone [facility] ER ABD PAIN [id number] 07/01/2018 23:08:00 07/02/2018 02:46:00 DIS Emergency REZA LLAMAS, IBIS Quintero [facility] ER ABD PAIN [id number] 06/03/2018 10:07:00 06/03/2018 11:58:00 DIS Emergency JORGE THORNTON [employer] [facility] ER ABD PAIN [id number] 05/26/2018 11:14:00 05/26/2018 14:39:00 DIS Emergency TODD SCHMIDT [facility] ER SEIZURE [id number] 08/21/2015 19:55:00 08/21/2015 22:59:00 DIS Emergency MUNA LINK DO [facility] ER ABDOMINAL PAIN
[2018-11-04] MEDS ORDERED: NS IV 1000 ML 1,000 ML IV ONE ×2 (22:42→23:32)
[2018-11-04] MEDS ORDERED: PANTOPRAZOLE 40 MG (PROTONIX) VIAL IV ONE (22:45)
[2018-11-04] MEDS ORDERED: ONDANSETRON 4 MG/2 ML (SDV) Z0FRAN IVP ONE (22:45)
[2018-11-04 22:49] LABS: BASOPHILS % (AUTO) 0 % (0-10); EOSINOPHILS # (AUTO) 0.3 10^3/uL (0.0-0.3); EOSINOPHILS % (AUTO) 2 % (0-10); HEMATOCRIT 40 % (35-52); HEMOGLOBIN 12.5 G/DL (11.5-16.0); LYMPHOCYTES # (AUTO) 2.8 X 10^3 (1.0-4.0); LYMPHOCYTES % (AUTO) 24 % (12-44); MEAN CORPUSCULAR HEMOGLOBIN 21 PG (25-34); MEAN CORPUSCULAR HGB CONC 31 G/DL (32-36); MEAN CORPUSCULAR VOLUME 68 FL (80-99); MEAN PLATELET VOLUME 9.4 FL (7.4-10.4); MONOCYTES # (AUTO) 0.7 X 10^3 (0.0-1.0); MONOCYTES % (AUTO) 6 % (0-12); NEUTROPHILS # (AUTO) 7.9 X 10^3 (1.8-7.8); NEUTROPHILS % (AUTO) 67 % (42-75); PLATELET COUNT 469 10^3/uL (130-400); RED CELL DISTRIBUTION WIDTH 19.9 % (10.0-14.5); WHITE BLOOD COUNT 11.7 10^3/uL (4.3-11.0)
[2018-11-04 22:59] LABS: INR 1.1 (0.8-1.4); PROTHROMBIN TIME PATIENT 14.3 SEC (12.2-14.7)
[2018-11-04 23:04] LABS: ALANINE AMINOTRANSFERASE 14 U/L (0-55); ALBUMIN 4.1 GM/DL (3.2-4.5); ALKALINE PHOSPHATASE 75 U/L (40-136); AMYLASE 16 U/L (25-125); BILIRUBIN,TOTAL 0.5 MG/DL (0.1-1.0); BUN/CREATININE RATIO 10; CALCIUM 9.4 MG/DL (8.5-10.1); CARBON DIOXIDE 18 MMOL/L (21-32); CHLORIDE 105 MMOL/L (98-107); CREATININE SERUM 0.78 MG/DL (0.60-1.30); GFR ESTIMATED > 60; GLUCOSE 186 MG/DL (70-105); LIPASE 5 U/L (8-78); MAGNESIUM 1.6 MG/DL (1.8-2.4); POTASSIUM 3.8 MMOL/L (3.6-5.0); SODIUM 136 MMOL/L (135-145); TOTAL PROTEIN 7.2 GM/DL (6.4-8.2)
[2018-11-04 23:05] LABS: ACETAMINOPHEN < 10 UG/ML (10-30)
[2018-11-04 23:09] LABS: BILIRUBIN,URINE NEGATIVE (NEGATIVE); CLARITY,URINE CLEAR; COLOR,URINE YELLOW; GLUCOSE, URINE (UA) 3+ (NEGATIVE); KETONES,URINE 1+ (NEGATIVE); LEUKOCYTE ESTERASE ,URINE 1+ (NEGATIVE); NITRITE,URINE NEGATIVE (NEGATIVE); PH,URINE 6 (5-9); PROTEIN,URINE 2+ (NEGATIVE); UROBILINOGEN,URINE NORMAL (NORMAL)
[2018-11-04 23:22] LABS: AMPHETAMINE SCREEN, URINE NEGATIVE (NEGATIVE); BARBITURATE SCREEN URINE NEGATIVE (NEGATIVE); BENZODIAZEPINES SCREEN URINE POSITIVE (NEGATIVE); CANNABINOID SCREEN, URINE POSITIVE (NEGATIVE); COCAINE SCREEN URINE NEGATIVE (NEGATIVE); METHADONE STAT NEGATIVE (NEGATIVE); METHAMPHETAMINE SCREEN URINE S NEGATIVE (NEGATIVE); OPIATE SCREEN URINE POSITIVE (NEGATIVE); TRICYCLIC ANTIDEPRESSANTS SCRE NEGATIVE (NEGATIVE)
[2018-11-04 23:23] LABS: OXYCODONE STAT POSITIVE (NEGATIVE); PROPOXYPHENE STAT NEGATIVE (NEGATIVE)
[2018-11-04 23:26] LABS: BACTERIA,URINE MODERATE /HPF
[2018-11-04] MEDS ORDERED: cefTRIAXone FOR IV USE 1,000 MG in WATER (STERILE) FOR INJECTION 10 ML IV ONE (23:45)
[2018-11-04] MEDS ORDERED: cefTRIAXone 1,000 MG IV (ROCEPHIN) VIAL ONE (23:52)
[2018-11-04] MEDS ORDERED: WATER (STERILE) FOR INJECTION 10 ML ONE (23:52)
--- NOTE | 2018-11-05 | ED Abdominal Pain ---
General Chief Complaint: - Urinary Stated Complaint: FLANK PAIN Nursing Triage Note: PT COMPLAINING OF LEFT LOWER ABD PAIN AND LEFT FLANK PAIN FOR APPROX 6 DAYS. PT STATES SHE HAS HAD NAUSEA AND VOMITING THE PAST 6 DAYS AND PAIN WITH URINATION Sepsis Screen: No Definite Risk Source of Information: Patient, Old Records History of Present Illness Date Seen by Provider: Nov 04, 2018 Time Seen by Provider: 22:27 Initial Comments PT ARRIVES VIA EMS FROM HOME ( YET HER SISTER, WHO WAS WITH HER AT THE HOME WHEN EMS WERE THERE, DRIVES HERE TO ER AND MEETS PT HERE, AND PT IS AMBULATORY ON ARRIVAL TO ER ) C/O ABDOMINAL PAIN X 6 DAYS STATES PAIN IS IN LEFT FLANK AND LUQ, AND IS ALSO HAVING LOWER ABDOMEN/PELVIC CRAMPING AT TIMES SYMPTOMS ARE NO DIFFERENT IN ANY WAY TODAY HAS NOT SOUGHT CARE AT ANY TIME UNTIL TODAY HAD BM YESTERDAY--DIARRHEA X 1. NO BLACK/BLOODY/TARRY STOOLS C/O PAIN ON URINATION, NO BLOOD IN URINE NO FEVER C/O NAUSEA AND VOMITING--IS A CHRONIC PROBLEM--PT STATES "I HAVE SEVERE ULCERS" --PT STATES SHE HAD EGD IN [place] IN [place] AND WAS DX WITH ULCERS AND IS ON CARAFATE, ZANTAC, OMEPRAZOLE PT HAS ZOFRAN AT HOME, BUT HAS NOT TAKEN ANY TODAY--STATES "MY STOMACH WASN'T BOTHERING ME TODAY' YET STATES SHE "COULDN'T KEEP HER MEDICINE DOWN" "BECAUSE SHE HAD 2 SESSIONS OF VOMITING WITH RETCHING 5 TIMES WITH EACH SESSION" ALSO CLAIMS SHE HAS NOT EATEN ANYTHING FOR 6 DAYS, AND ONLY HAD WATER TO DRINK AND NOTHING ELSE. PT IS EXTREMELY WELL KNOWN TO EMS STAFF, SHE CALLS THEM MULTIPLE TIMES A MONTH, AND USUALLY IS TRANSPORTED TO [facility]. ON MULTIPLE PRIOR OCCASIONS, PT HAS BEEN TRANSPORTED BY EMS TO [facility], CHECKED OUT OF THERE AND HAD A FAMILY MEMBER SPINNING LATHE OPERATOR HYDRAULIC HER HOME, AND THEN PT WILL THEN CALLED EMS AGAIN AND WANT TO BE TRANSPORTED TO ANOTHER HOSPITAL, AND THEN DO THE SAME THING AGAIN. EMS HAS TRANSPORTED THE PT 3 DIFFERENT TIMES TO 3 DIFFERENT FACILITIES ALL IN THE SAME DAY BEFORE. PT IS VERY WELL KNOWN AT MULTIPLE LOCAL HOSPITALS PT ALWAYS REQUESTS NARCOTICS PT HAS CHRONIC ABDOMINAL COMPLAINTS AND THIS CURRENT COMPLAINT IS NOT ANYTHING NEW PT USES THC ON A DAILY BASIS, BUT CLAIMS SHE HAS NOT HAD ANY FOR 4 DAYS ADDITIONALLY, PT TAKES MORPHINE PLUS OXYCODONE DAILY FOR CHRONIC ABDOMINAL PAIN COMPLAINTS--STATES SHE TOOK OXYCODONE AT 0700 TODAY AND HAS RAN OUT, AND HAS NOT TAKEN ANY MORPHINE TODAY PT IS DIABETIC BUT HAS NOT CHECKED HER BLOOD SUGAR PCP: FT. ANDIE DOLL--STATES SHE HAS NOT SEEN HIM "FOR QUITE AWHILE" Allergies and Home Medications Allergies Coded Allergies: metformin (Verified Allergy, Unknown, 08/21/15) spironolactone (Verified Allergy, Unknown, 08/21/15) Home Medications Alprazolam 2 Mg Tablet, 2 MG PO Q6H PRN for ANXIETY, (Reported) Atorvastatin Calcium 40 Mg Tablet, 40 MG PO DAILY, (Reported) Buspirone HCl 15 Mg Tablet, 15 MG PO TID, (Reported) Fentanyl 1 Each Patch.td72, 50 MCG TD Q72H, (Reported) Hydrocodone/Acetaminophen 1 Each Tablet, 1 EACH PO Q6H, (Reported) Hyoscyamine Sulfate 0.125 Mg Tab.subl, 1-2 TAB SL Q4H Prescribed by: MUNA LINK on 11/05/18 003 Losartan/Hydrochlorothiazide 1 Each Tablet, 1 EACH PO DAILY, (Reported) Mirtazapine 15 Mg Tablet, 15 MG PO HS, (Reported) Naproxen 500 Mg Tablet, 500 MG PO BID, (Reported) Nitrofurantoin Monohyd/M-Cryst 100 Mg Capsule, 100 MG PO BID Prescribed by: MUNA LINK on 11/05/18 003 Omeprazole 20 Mg Tablet.dr, 20 MG PO BID, (Reported) Ondansetron 4 Mg Tab.rapdis, 4 MG SL Q4H PRN for NAUSEA/VOMITING Prescribed by: IBIS NOEL on 07/02/18 0239 Oxycodone HCl/Acetaminophen 1 Each Tablet, 1 EACH PO Q6H, (Reported) Paroxetine HCl 30 Mg Tablet, 30 MG PO DAILY, (Reported) Paroxetine HCl 20 Mg Tablet, 20 MG PO DAILY, (Reported) Pregabalin 300 Mg Capsule, 300 MG PO Q12H, (Reported) Prochlorperazine Maleate 25 Mg Supp.rect, 25 MG RC Q8H PRN for NAUSEA/VOMITING Prescribed by: JORGE THORNTON on 06/03/18 1148 Promethazine HCl 50 Mg Supp.rect, 50 MG RC Q4H Prescribed by: MUNA LINK on 08/21/152217 Ropinirole HCl 0.5 Mg Tablet, 0.5 MG PO Q8H, (Reported) Scopolamine 1 Each Patch.td72, 1 EACH TD Q72 HOURS Prescribed by: MUNA Randolph NIKOLAY on 08/21/152217 Sitagliptin Phosphate 100 Mg Tablet, 100 MG PO DAILY, (Reported) Warfarin Sodium 10 Mg Tablet, 10 MG PO DAILY, (Reported) Warfarin Sodium 1 Mg Tablet, 3 MG PO DAILY, (Reported) Zolpidem Tartrate 10 Mg Tablet, 10 MG PO HS PRN for INSOMNIA, (Reported) Patient Home Medication List Home Medication List Reviewed: Yes Review of Systems Review of Systems Constitutional: no symptoms reported Respiratory: No Symptoms Reported Cardiovascular: No Symptoms Reported Gastrointestinal: See HPI, Abdominal Pain, Diarrhea, Nausea, Vomiting Genitourinary: See HPI, Burning Musculoskeletal: see HPI, back pain Skin: no symptoms reported Psychiatric/Neurological: No Symptoms Reported Endocrine: No Symptoms Reported Hematologic/Lymphatic: No Symptoms Reported Past [id number] Hx Patient Social History Alcohol Use: Regular Use (8-10 DRINKS / WEEK) Recreational Drug Use: Yes (THC USE DAILY) Drug of Choice: MARIJUANA Smoking Status: Current Everyday Smoker (1 PPD) Type Used: Cigarettes (1 PPD) 2nd Hand Smoke Exposure: No Recent Foreign Travel: No Contact w/Someone Who Travel: No Recent Infectious Disease Expo: No Recent Hopitalizations: No Past Medical History Surgeries: Yes (EGD) Gallbladder Respiratory: Yes Pulmonary Embolism Cardiac: Yes High Cholesterol, Hypertension Neurological: Yes ("CVA" X 2--NO RESIDUAL, PER PT--NO PHYSICIAN VERIFICATION OF THIS. QUESTION IF ACTUALLY TIA'S) Stroke Reproductive Disorders: Yes Female Reproductive Disorders: Endometriosis, Polycystic Ovarian Dis Genitourinary: Yes Bladder Infection Gastrointestinal: Yes (esophageal hernia; gastroparesis, chronic abdominal pain complaints with nausea/vomiting; chronic THC and opiate use; SPLENOMEGALY) Gastroesophageal Reflux, Ulcer Musculoskeletal: Yes (CHRONIC KNEE PAIN, RESTLESS LEG SYNDROME) Fibromyalgia Endocrine: Yes (MORBID OBESITY--> 400 LBS. ) Diabetes, Insulin dep HEENT: No Cancer: No Psychosocial: Yes (OCD, opiod dependence, daily THC use) Sleep Difficulties, Anxiety, ODD, Suicide Attempts, Depression Integumentary: No Blood Disorders: Yes (ANEMIA) Adverse Reaction/Blood Tranf: No Physical Exam Vital Signs Vital Signs - First Documented 6/11/19 22:30 Temp 97.9 Pulse 113 Resp 18 B/P (MAP) 155/105 (122) Pulse Ox 98 O2 Delivery Room Air Capillary Refill : Less Than 3 Seconds Height/Weight/BMI Height: 5'4.00" Weight: 378lbs. 0oz. 171.756546hw; 69.88 BMI Method:Stated General Appearance: no apparent distress, obese (MORBIDLY OBESE; VERY MALODOROUS, DRAMATIC ON ARRIVAL--MOANING AND HYPERVENTILATING--THIS STOPS WHEN STAFF LEAVE ROOM; LATER IN ER STAY, PT NOTED TO BE SITTING ON BED WITH ONE LEG SWINGING BACK AND FORTH OFF THE SIDE OF THE BED, WITH THE OTHER LEG BENT UNDER HER, WHILE PLAYING/TEXTING ON PHONE. PT WALKS UPRIGHT AND MOVES WITHOUT ANY EVIDENCE OF PAIN) Respiratory: normal breath sounds, no respiratory distress, no accessory muscle use Cardiovascular: regular rate, rhythm, no murmur Gastrointestinal: soft, tenderness (SUPRAPUBIC AND LEFT UPPER ABDOMEN AND LEFT FLANK TENDERNESS. 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, no motor/sensory deficits, alert, normal mood/affect, oriented x 3, other (PT SMILING, AND COOPERATIVE) Skin: normal color, warm/dry, tattoos/piercings (EXTENSIVE ), other (MULTIPLE OLD / HEALED LINEAR AND PARALLEL SCARS TO LEFT > RIGHT FOREARMS) Progress/Results/Core Measures Results/Orders Lab Results Laboratory Tests Test 11/04/18 22:30 11/04/18 23:05 11/04/18 23:08 Range/Units White Blood Count 11.7 H 4.3-11.0 10^3/uL Red Blood Count 5.89 H 4.35-5.85 10^6/uL Hemoglobin 12.5 11.5-16.0 G/DL Hematocrit 40 35-52 % Mean Corpuscular Volume 68 L 80-99 FL Mean Corpuscular Hemoglobin 21 L 25-34 PG Mean Corpuscular Hemoglobin Concent 31 L 32-36 G/DL Red Cell Distribution Width 19.9 H 10.0-14.5 % Platelet Count 469 H 130-400 10^3/uL Mean Platelet Volume 9.4 7.4-10.4 FL Neutrophils (%) (Auto) 67 42-75 % Lymphocytes (%) (Auto) 24 12-44 % Monocytes (%) (Auto) 6 0-12 % Eosinophils (%) (Auto) 2 0-10 % Basophils (%) (Auto) 0 0-10 % Neutrophils # (Auto) 7.9 H 1.8-7.8 X 10^3 Lymphocytes # (Auto) 2.8 1.0-4.0 X 10^3 Monocytes # (Auto) 0.7 0.0-1.0 X 10^3 Eosinophils # (Auto) 0.3 0.0-0.3 10^3/uL Basophils # (Auto) 0.0 0.0-0.1 10^3/uL Prothrombin Time 14.3 12.2-14.7 SEC INR Comment 1.1 0.8-1.4 Activated Partial Thromboplast Time 26 24-35 SEC Sodium Level 136 135-145 MMOL/L Potassium Level 3.8 3.6-5.0 MMOL/L Chloride Level 105 98-107 MMOL/L Carbon Dioxide Level 18 L 21-32 MMOL/L Anion Gap 13 5-14 MMOL/L Blood Urea Nitrogen 8 7-18 MG/DL Creatinine 0.78 0.60-1.30 MG/DL Estimat Glomerular Filtration Rate > 60 BUN/Creatinine Ratio 10 Glucose Level 186 H 70-105 MG/DL Calcium Level 9.4 8.5-10.1 MG/DL Corrected Calcium 9.3 8.5-10.1 MG/DL Magnesium Level 1.6 L 1.8-2.4 MG/DL Total Bilirubin 0.5 0.1-1.0 MG/DL Aspartate Amino Transf (AST/SGOT) 10 5-34 U/L Alanine Aminotransferase (ALT/SGPT) 14 0-55 U/L Alkaline Phosphatase 75 40-136 U/L Total Protein 7.2 6.4-8.2 GM/DL Albumin 4.1 3.2-4.5 GM/DL Amylase Level 16 L 25-125 U/L Lipase 5 L 8-78 U/L Serum Test, Qualitative NEGATIVE NEGATIVE Acetaminophen Level < 10 L 10-30 UG/ML Serum Alcohol < 10 <10 MG/DL Urine Color YELLOW Urine Clarity CLEAR Urine pH 6 5-9 Urine Specific Burt 1.025 H 1.016-1.022 Urine Protein 2+ H NEGATIVE Urine Glucose (UA) 3+ H NEGATIVE Urine Ketones 1+ H NEGATIVE Urine Nitrite NEGATIVE NEGATIVE Urine Bilirubin NEGATIVE NEGATIVE Urine Urobilinogen NORMAL NORMAL MG/DL Urine Leukocyte Esterase 1+ H NEGATIVE Urine RBC (Auto) NEGATIVE NEGATIVE Urine RBC NONE /HPF Urine WBC 5-10 H /HPF Urine Squamous Epithelial Cells 2-5 /HPF Urine Crystals NONE /LPF Urine Bacteria MODERATE H /HPF Urine Casts NONE /LPF Urine Mucus LARGE H /LPF Urine Culture Indicated YES Urine Opiates Screen POSITIVE H NEGATIVE Urine Oxycodone Screen POSITIVE H NEGATIVE Urine Methadone Screen NEGATIVE NEGATIVE Urine Propoxyphene Screen NEGATIVE NEGATIVE Urine Barbiturates Screen NEGATIVE NEGATIVE Ur Tricyclic Antidepressants Screen NEGATIVE NEGATIVE Urine Phencyclidine Screen NEGATIVE NEGATIVE Urine Amphetamines Screen NEGATIVE NEGATIVE Urine Methamphetamines Screen NEGATIVE NEGATIVE Urine Benzodiazepines Screen POSITIVE H NEGATIVE Urine Cocaine Screen NEGATIVE NEGATIVE Urine Cannabinoids Screen POSITIVE H NEGATIVE Glucometer 181 H 70-110 MG/DL My Orders Orders - MUNA LINK DO Accucheck Stat ONCE (11/04/18 22:42) Ed Iv/Invasive Line Start (11/04/18 22:42) Monitor-Rhythm Ecg Trace Only (11/04/18 22:42) Straight Cath For Spec.-Adult (11/04/18 22:42) Acetaminophen (11/04/18 22:42) Alcohol (11/04/18 22:42) Amylase (11/04/18 22:42) Cbc With Automated Diff (11/04/18 22:42) Comprehensive Metabolic Panel (11/04/18 22:42) Drug Screen Stat (Urine) (11/04/18 22:42) Hcg,Qualitative Serum (11/04/18 22:42) Lipase (11/04/18 22:42) Magnesium (11/04/18 22:42) Protime With Inr (11/04/18 22:42) Partial Thromboplastin Time (11/04/18 22:42) Ua Culture If Indicated (11/04/18 22:42) Ed Iv/Invasive Line Start (11/04/18 22:42) Ns Iv 1000 Ml (Sodium Chloride 0.9%) (11/04/18 22:42) Ondansetron Injection (Zofran Injectio (11/04/18 22:45) Pantoprazole Injection (Protonix Injecti (11/04/18 22:45) Urine Culture (11/04/18 23:05) Ct Abd/Pelvis Wo(Kidney Stone) (11/04/18 23:30) Acute Abd Series (11/04/18 23:30) Ceftriaxone For Iv Use (Rocephin For I (11/04/18 23:45) Ed Iv/Invasive Line Start (11/04/18 23:32) Ns Iv 1000 Ml (Sodium Chloride 0.9%) (11/04/18 23:32) Ceftriaxone For Iv Use (Rocephin For I (11/04/18 23:52) Water (Sterile) For Injection (Sterile W (11/04/18 23:52) Hyoscyamine Sl Tablet (Levsin Sl Tablet) (11/05/18 00:15) Medications Given in ED Current Medications Medications Dose Ordered Sig/Becki Route Start Time Stop Time Status Last Admin Dose Admin Ceftriaxone Sodium 1000 mg/ Sterile Water 10 ml @ 200 mls/hr ONCE ONCE IV 11/04/18 23:45 11/04/18 23:57 DC 11/05/18 00:07 200 MLS/HR Hyoscyamine Sulfate 0.25 mg ONCE ONCE PO 11/05/18 00:15 11/05/18 00:16 DC 11/05/18 00:22 0.25 MG Ondansetron HCl 8 mg ONCE ONCE IVP 11/04/18 22:45 11/04/18 22:46 DC 11/04/18 22:51 8 MG Pantoprazole 40 mg ONCE ONCE IV 11/04/18 22:45 11/04/18 22:46 DC 11/04/18 22:51 40 MG Sodium Chloride 1,000 ml @ 0 mls/hr Q0M ONCE IV 11/04/18 22:42 11/04/18 22:45 DC 11/04/18 22:51 999 MLS/HR Sodium Chloride 1,000 ml @ 0 mls/hr Q0M ONCE IV 11/04/18 23:32 11/04/18 23:57 DC 11/05/18 00:08 999 MLS/HR Vital Signs/I&O 11/04/18 22:30 Temp 97.9 Pulse 113 Resp 18 B/P (MAP) 155/105 (122) Pulse Ox 98 O2 Delivery Room Air 11/05/18 00:00 Intake Total 1000 ml Balance 1000 ml Blood Pressure Mean: 122 FSBG Bedside Testing Finger Stick Blood Glucose: 181 Progress Progress Note : Progress Note UNEVENTFUL ER STAY PT ONLY REQUESTED "SOMETHING FOR GAS PAINS" --GIVEN LEVSIN NO FURTHER COMPLAINTS OR REQUESTS DURING ER STAY PT AND SISTER PLAYING ON PHONES--TURNED UP VERY LOUD, PLAYING MUSIC, ETC. AND THEY ARE LAUGHING AND TALKING LOUDLY, ETC, THROUGHOUT MOST OF ER STAY. WALKS OUT OF ER WITHOUT ANY DIFFICULTY Diagnostic Imaging Comments ABDOMEN XRAYS--NO ACUTE PROCESS, PENDING RADIOLOGIST REVIEW CT ABDOMEN/PELVIS--SPLENOMEGALY, NO ACUTE PROCESS, PER [facility] VIA FAX AT 0031 Reviewed: Reviewed by Me Departure Impression Primary Impression: Urinary tract infection Additional Impressions: Chronic generalized abdominal pain Chronic prescription opiate use CHRONIC THC USE Disposition: HOME, SELF-CARE Condition: Stable Departure-Patient Inst. Referrals: ZAIN,LOCAL PHYSICIAN (PCP) Primary Care Physician LADONNA BEDOYA MD Patient Instructions: Urinary Tract Infection, Adult (DC) Add. Discharge Instructions: LOTS OF CLEAR LIQUIDS--NO COFFEE, POP OR TEA TAKE YOUR REGULAR MEDICATIONS PRESCRIBED FOLLOW UP WITH DR. BEDOYA IN 2-3 DAYS FOR FURTHER CARE--CALL IN AM FOR APPOINTMENT All discharge instructions reviewed with patient and/or family. Voiced under standing. Scripts Hyoscyamine Sulfate (Levsin-Sl) 0.125 Mg Tab.subl 1-2 TAB SL Q4H for Abdominal Pain, #10 TAB Prov: MUNA LINK DO 11/05/18 Nitrofurantoin Monohyd/M-Cryst (Macrobid 100 mg Capsule) 100 Mg Capsule 100 MG PO BID, #20 CAP Prov: MUNA LINK DO 11/05/18 MUNA LINK DO Nov 05, 2018 00:00
[2018-11-05] MEDS ORDERED: HYOSCYAMINE 0.125 MG (LEVSIN) TAB PO ONE (00:15)
[2018-11-05] MEDS ORDERED: HYOS0.1283 SL (00:35)
[2018-11-05] MEDS ORDERED: NITR-65 PO (00:35)
[2018-11-05 01:19] VITALS: BP 154/96
--- NOTE | 2018-11-05 08:30 | Diagnostic Imaging Report ---
INDICATION: Left flank pain. COMPARISON: CT abdomen and pelvis performed 7 minutes subsequently. TECHNIQUE: AP chest with upright and supine views of the abdomen and pelvis. FINDINGS: Visualized lungs are clear. No pneumothorax or pleural effusion. Normal cardiac silhouette and mediastinal contours. No free intraperitoneal air. There are a few gas-filled but nondilated loops of small bowel in colon. No abnormal soft tissue mineralizations. Normal regional skeleton. IMPRESSION: No acute abnormality in the chest or abdomen by radiography. Dictated by: Dictated on workstation # [id number]
--- NOTE | 2018-11-05 08:34 | Diagnostic Imaging Report ---
PROCEDURE: CT urinary tract, rule out kidney stone. TECHNIQUE: Multiple contiguous axial images were obtained through the abdomen and pelvis without the use of intravenous contrast. Auto Exposure Controls were utilized during the CT exam to meet ALARA standards for radiation dose reduction. INDICATION: Left flank pain and abdominal pain. COMPARISON: CT abdomen and pelvis of 07/20/2018 FINDINGS: Evaluation of the abdominal viscera is mildly limited without contrast. Lower chest: The lung bases are clear. No pericardial or pleural effusion. Peritoneum: No free intraperitoneal air or fluid. Liver and biliary system: Unenhanced liver is normal. Cholecystectomy. No pathologic biliary duct dilatation. Spleen and Pancreas: Spleen is normal. Unenhanced pancreas is grossly normal. Adrenals: Stable 1.7 x 1.7 cm right adrenal adenoma. No new adrenal nodule. tract: No renal or ureteral calculi. No obstructive uropathy. Urinary bladder is decompressed, limiting evaluation. Uterus is stable in appearance without acute abnormality. No concerning adnexal mass. GI tract: Stomach is decompressed. No bowel obstruction. No pericolonic inflammatory changes. Normal appendix. Vasculature and Lymph nodes: Normal caliber aorta. No abdominal or pelvic lymphadenopathy. Musculoskeletal: No concerning osseous lesion. IMPRESSION: 1. No urinary tract calculi or obstructive uropathy. 2. No acute inflammatory process. 3. Findings are in agreement with the preliminary report. Dictated by: Dictated on workstation # [id number]
== END 2018-11-05 01:15 | disposition home or self-care (01) ==
LOC: EDUNIT# 22:23 → ER 22:24
DX: N39.0 Urinary tract infection, site not specified (principal); F11.90 Opioid use, unspecified, uncomplicated; E11.43 Type 2 diabetes mellitus with diabetic autonomic (poly)neuropathy; K31.84 Gastroparesis; F41.9 Anxiety disorder, unspecified; F32.9 Major depressive disorder, single episode, unspecified; F91.3 Oppositional defiant disorder; D64.9 Anemia, unspecified; E66.01 Morbid (severe) obesity due to excess calories; F12.10 Cannabis abuse, uncomplicated; E78.00 Pure hypercholesterolemia, unspecified; I10 Essential (primary) hypertension; K21.9 Gastro-esophageal reflux disease without esophagitis; F17.210 Nicotine dependence, cigarettes, uncomplicated; Z86.711 Personal history of pulmonary embolism; Z68.44 Body mass index [BMI] 60.0-69.9, adult; Z88.8 Allergy status to other drugs, medicaments and biological substances; Z86.73 Personal history of transient ischemic attack (TIA), and cerebral infarction without residual deficits; Z87.448 Personal history of other diseases of urinary system; Z87.19 Personal history of other diseases of the digestive system; Z79.01 Long term (current) use of anticoagulants
CPT/HCPCS: 36415; 51701; 74022; 74176; 80053; 80306; 80320; 80329; 81000; 82150; 82962; 83690; 83735; 84703; 85025; 85610; 85730; 87088; 93041; 96361; 96374; 96375

== ENCOUNTER 2019-02-23 20:42 | Emergency (ER) | payer MEDICARE, MEDICAID ==
[~2019-02-23] VITALS: Ht 165.1 cm; Wt 172.3 kg
[~2019-02-23 20:42] MED LIST changes: +HYOS0.1283 SL; +NITR-65 PO
[2019-02-23] MEDS ORDERED: PANTOPRAZOLE 40 MG (PROTONIX) VIAL IV STA (20:53)
[2019-02-23] MEDS ORDERED: LORazepam INJ 2 MG/ML (ATIVAN) VIAL IVP STA ×2 (20:53→21:48)
[2019-02-23] MEDS ORDERED: NS IV 1000 ML 1,000 ML IV STA ×2 (20:53→21:48)
[2019-02-23] MEDS ORDERED: HYOSCYAMINE 0.125 MG (LEVSIN) TAB PO STA (20:59)
[2019-02-23 21:04] LABS: EOSINOPHILS % (AUTO) 2 % (0-10); HEMATOCRIT 43 % (35-52); HEMOGLOBIN 12.8 G/DL (11.5-16.0); LYMPHOCYTES % (AUTO) 19 % (12-44); MEAN CORPUSCULAR HEMOGLOBIN 21 PG (25-34); MEAN CORPUSCULAR HGB CONC 30 G/DL (32-36); MEAN CORPUSCULAR VOLUME 71 FL (80-99); MEAN PLATELET VOLUME 9.4 FL (7.4-10.4); MONOCYTES % (AUTO) 4 % (0-12); NEUTROPHILS % (AUTO) 73 % (42-75); PLATELET COUNT 396 10^3/uL (130-400); RED CELL DISTRIBUTION WIDTH 18.3 % (10.0-14.5); WHITE BLOOD COUNT 10.9 10^3/uL (4.3-11.0)
[2019-02-23 21:05] LABS: BASOPHILS % (AUTO) 0 % (0-10); EOSINOPHILS # (AUTO) 0.2 10^3/uL (0.0-0.3); LYMPHOCYTES # (AUTO) 2.1 X 10^3 (1.0-4.0); MONOCYTES # (AUTO) 0.5 X 10^3 (0.0-1.0)
--- NOTE | 2019-02-23 21:10 | ED Abdominal Pain ---
General Chief Complaint: Abdominal/GI Problems Stated Complaint: ABD PAIN Source of Information: Patient History of Present Illness Date Seen by Provider: Feb 23, 2019 Time Seen by Provider: 20:42 Initial Comments 33-year-old female presenting with complaints of burning pain in her epigastric area. She states that she was having heartburn. She called EMS to transport her here to the emergency department. She has had multiple emergency department visits to multiple hospitals in the past. She has recurrent abdominal pain issues. She presents with very dramatic complaints of abdominal pain. She is moaning and bellowing with complaints of severe pain. She has onset of pain at 2 PM this afternoon. She said that she tried taking an oxycodone that she had leftover at home without any relief of her symptoms. She has nausea but has not had any actual vomiting. She received Zofran by EMS. She denies any burning pain with urination. He has no diarrhea. She is passing gas. She denies any vaginal bleeding or discharge. She states that she has tried to find a new doctor as she did not want to follow with Dr. Portillo any longer. She denies any fever or chills. Allergies and Home Medications Allergies Coded Allergies: metformin (Verified Allergy, Unknown, 08/21/15) spironolactone (Verified Allergy, Unknown, 08/21/15) Home Medications Alprazolam 2 Mg Tablet, 2 MG PO Q6H PRN for ANXIETY, (Reported) Atorvastatin Calcium 40 Mg Tablet, 40 MG PO DAILY, (Reported) Buspirone HCl 15 Mg Tablet, 15 MG PO TID, (Reported) Fentanyl 1 Each Patch.td72, 50 MCG TD Q72H, (Reported) Hydrocodone/Acetaminophen 1 Each Tablet, 1 EACH PO Q6H, (Reported) Hyoscyamine Sulfate 0.125 Mg Tab.subl, 1-2 TAB SL Q4H Prescribed by: MUNA LINK on 11/05/1834 Losartan/Hydrochlorothiazide 1 Each Tablet, 1 EACH PO DAILY, (Reported) Mirtazapine 15 Mg Tablet, 15 MG PO HS, (Reported) Naproxen 500 Mg Tablet, 500 MG PO BID, (Reported) Nitrofurantoin Monohyd/M-Cryst 100 Mg Capsule, 100 MG PO BID Prescribed by: MUNA LINK on 11/05/1834 Omeprazole 20 Mg Tablet.dr, 20 MG PO BID, (Reported) Ondansetron 4 Mg Tab.rapdis, 4 MG SL Q4H PRN for NAUSEA/VOMITING Prescribed by: IBIS NOEL on 07/02/18 0239 Oxycodone HCl/Acetaminophen 1 Each Tablet, 1 EACH PO Q6H, (Reported) Paroxetine HCl 30 Mg Tablet, 30 MG PO DAILY, (Reported) Paroxetine HCl 20 Mg Tablet, 20 MG PO DAILY, (Reported) Pregabalin 300 Mg Capsule, 300 MG PO Q12H, (Reported) Prochlorperazine Maleate 25 Mg Supp.rect, 25 MG RC Q8H PRN for NAUSEA/VOMITING Prescribed by: JORGE THORNTON on 06/03/18 1148 Promethazine HCl 50 Mg Supp.rect, 50 MG RC Q4H Prescribed by: MUNA LINK on 08/21/152217 Ropinirole HCl 0.5 Mg Tablet, 0.5 MG PO Q8H, (Reported) Scopolamine 1 Each Patch.td72, 1 EACH TD Q72 HOURS Prescribed by: MUNA LINK on 08/21/152217 Sitagliptin Phosphate 100 Mg Tablet, 100 MG PO DAILY, (Reported) Warfarin Sodium 10 Mg Tablet, 10 MG PO DAILY, (Reported) Warfarin Sodium 1 Mg Tablet, 3 MG PO DAILY, (Reported) Zolpidem Tartrate 10 Mg Tablet, 10 MG PO HS PRN for INSOMNIA, (Reported) Patient Home Medication List Home Medication List Reviewed: Yes Review of Systems Review of Systems Constitutional: No chills, No fever EENTM: No Symptoms Reported Respiratory: No Symptoms Reported Cardiovascular: No Symptoms Reported Gastrointestinal: See HPI Genitourinary: See HPI Musculoskeletal: no symptoms reported Skin: no symptoms reported Psychiatric/Neurological: Anxiety Endocrine: No Symptoms Reported Past Nubijtp-Lxonkf-Eizgkj Hx Past Med/Social Hx: Reviewed Nursing Past Med/Soc Hx Patient Social History Drug of Choice: MARIJUANA Type Used: Cigarettes 2nd Hand Smoke Exposure: No Recent Foreign Travel: No Recent Hopitalizations: No Past Medical History Surgeries: Yes (EGD) Gallbladder Respiratory: Yes Pulmonary Embolism Cardiac: Yes High Cholesterol, Hypertension Neurological: Yes Stroke Reproductive Disorders: Yes Female Reproductive Disorders: Endometriosis, Polycystic Ovarian Dis Genitourinary: Yes Bladder Infection Gastrointestinal: Yes Gastroesophageal Reflux, Ulcer Musculoskeletal: Yes (CHRONIC KNEE PAIN, RESTLESS LEG SYNDROME) Fibromyalgia Endocrine: Yes (MORBID OBESITY--> 400 LBS. ) Diabetes, Insulin dep HEENT: No Cancer: No Psychosocial: Yes (OCD, opiod dependence, daily THC use) Sleep Difficulties, Anxiety, ODD, Suicide Attempts, Depression Integumentary: No Blood Disorders: Yes (ANEMIA) Adverse Reaction/Blood Tranf: No Physical Exam Vital Signs Vital Signs - First Documented 02/23/19 20:45 Temp 37.2 Pulse 83 Resp 18 B/P (MAP) 142/117 (125) Pulse Ox 98 O2 Delivery Room Air Capillary Refill : Height/Weight/BMI Height: 5'4.00" Weight: 378lbs. 0oz. [id number]; 69.88 BMI Method:Stated General Appearance: obese, other (pt moaning and bellowing loudly) HEENT: PERRL/EOMI, pharynx normal Neck: non-tender, supple Respiratory: chest non-tender, lungs clear, normal breath sounds, no respiratory distress, no accessory muscle use Cardiovascular: normal peripheral pulses, regular rate, rhythm Gastrointestinal: normal bowel sounds, soft, no pulsatile mass; No guarding, No rebound; tenderness (epigastric abdominal pain), other (morbidly obese abdomen) Extremities: normal range of motion, non-tender, normal inspection, normal capillary refill Neurologic/Psychiatric: alert Skin: normal color, warm/dry Progress/Results/Core Measures Results/Orders Lab Results Laboratory Tests Test 02/23/19 20:52 02/23/19 23:10 Range/Units White Blood Count 10.9 4.3-11.0 10^3/uL Red Blood Count 5.99 H 4.35-5.85 10^6/uL Hemoglobin 12.8 11.5-16.0 G/DL Hematocrit 43 35-52 % Mean Corpuscular Volume 71 L 80-99 FL Mean Corpuscular Hemoglobin 21 L 25-34 PG Mean Corpuscular Hemoglobin Concent 30 L 32-36 G/DL Red Cell Distribution Width 18.3 H 10.0-14.5 % Platelet Count 396 130-400 10^3/uL Mean Platelet Volume 9.4 7.4-10.4 FL Neutrophils (%) (Auto) 73 42-75 % Lymphocytes (%) (Auto) 19 12-44 % Monocytes (%) (Auto) 4 0-12 % Eosinophils (%) (Auto) 2 0-10 % Basophils (%) (Auto) 0 0-10 % Neutrophils # (Auto) 8.0 H 1.8-7.8 X 10^3 Lymphocytes # (Auto) 2.1 1.0-4.0 X 10^3 Monocytes # (Auto) 0.5 0.0-1.0 X 10^3 Eosinophils # (Auto) 0.2 0.0-0.3 10^3/uL Basophils # (Auto) 0.0 0.0-0.1 10^3/uL Prothrombin Time 12.6 12.2-14.7 SEC INR Comment 0.9 0.8-1.4 Activated Partial Thromboplast Time 25 24-35 SEC Sodium Level 139 135-145 MMOL/L Potassium Level 4.5 3.6-5.0 MMOL/L Chloride Level 107 98-107 MMOL/L Carbon Dioxide Level 21 21-32 MMOL/L Anion Gap 11 5-14 MMOL/L Blood Urea Nitrogen 11 7-18 MG/DL Creatinine 0.64 0.60-1.30 MG/DL Estimat Glomerular Filtration Rate > 60 BUN/Creatinine Ratio 17 Glucose Level 206 H 70-105 MG/DL Calcium Level 9.0 8.5-10.1 MG/DL Corrected Calcium 9.0 8.5-10.1 MG/DL Total Bilirubin 0.2 0.1-1.0 MG/DL Aspartate Amino Transf (AST/SGOT) 10 5-34 U/L Alanine Aminotransferase (ALT/SGPT) 6 0-55 U/L Alkaline Phosphatase 61 40-136 U/L Total Protein 6.9 6.4-8.2 GM/DL Albumin 4.0 3.2-4.5 GM/DL Lipase 13 8-78 U/L Serum Test, Qualitative NEGATIVE NEGATIVE Urine Color YELLOW Urine Clarity CLEAR Urine pH 7.0 5-9 Urine Specific [place] 1.025 H 1.016-1.022 Urine Protein NEGATIVE NEGATIVE Urine Glucose (UA) 1+ H NEGATIVE Urine Ketones NEGATIVE NEGATIVE Urine Nitrite NEGATIVE NEGATIVE Urine Bilirubin NEGATIVE NEGATIVE Urine Urobilinogen 0.2 NORMAL MG/DL Urine Leukocyte Esterase NEGATIVE NEGATIVE Urine RBC (Auto) NEGATIVE NEGATIVE Urine RBC NONE /HPF Urine WBC 0-2 /HPF Urine Squamous Epithelial Cells 5-10 /HPF Urine Crystals NONE /LPF Urine Bacteria TRACE /HPF Urine Casts NONE /LPF Urine Mucus NONE /LPF Urine Culture Indicated NO My Orders Orders - HILARY VALDEZ MD Comprehensive Metabolic Panel (02/23/19 20:53) Lipase (02/23/19 20:53) Ua Culture If Indicated (02/23/19 20:53) Hcg,Qualitative Serum (02/23/19 20:53) Ed Iv/Invasive Line Start (02/23/19 20:53) Cbc With Automated Diff (02/23/19 20:53) Ns Iv 1000 Ml (Sodium Chloride 0.9%) (02/23/19 20:53) Lorazepam Injection (Ativan Injection) (02/23/19 20:53) Pantoprazole Injection (Protonix Injecti (02/23/19 20:53) Protime With Inr (02/23/19 20:58) Partial Thromboplastin Time (02/23/19 20:58) Monitor-Rhythm Ecg Trace Only (02/23/19 20:59) Hyoscyamine Sl Tablet (Levsin Sl Tablet) (02/23/19 20:59) Lorazepam Injection (Ativan Injection) (02/23/19 21:48) Lidocaine 2% Viscous 15 Ml (Xylocaine Vi (02/23/19 22:00) Ns Iv 1000 Ml (Sodium Chloride 0.9%) (02/23/19 21:48) Antacid Suspension (Mylanta Suspension (02/23/19 22:00) Medications Given in ED Current Medications Medications Dose Ordered Sig/Becki Route Start Time Stop Time Status Last Admin Dose Admin Al Hydrox/Mg Hydrox/Simethicone 30 ml ONCE ONCE PO 02/23/19 22:00 02/23/19 22:01 DC 02/23/19 22:14 30 ML Lidocaine HCl 15 ml ONCE ONCE PO 02/23/19 22:00 02/23/19 22:01 DC 02/23/19 22:14 15 ML Vital Signs/I&O 02/23/19 02/24/19 20:45 00:25 Temp 37.2 37.2 Pulse 83 91 Resp 18 26 B/P (MAP) 142/117 (125) 189/98 Pulse Ox 98 96 O2 Delivery Room Air Room Air 02/24/19 00:00 Intake Total 2000 ml Balance 2000 ml Progress Progress Note #1: Progress Note obtain labs and give protonix with additional dose of zofran for nausea. Give Ativan for anxiety and nausea. Due to her size I would not be able to obtain a CT scan of her abdomen and pelvis. However she has point tenderness and burning pain consistent with peptic ulcer disease or gastritis. Since she has normal bowel sounds and has been passing gas will defer plain films due to her size that would be poor quality. Progress Note #2: Progress Note Labs have all come back normal without any acute significant abnormalities. She was still moaning and crying out so repeated ativan and gave GI cocktail. discharge to follow up with clinic for continued GI symptoms Departure Impression Primary Impression: Epigastric abdominal pain Additional Impression: Acid reflux disease Qualified Codes: K21.9 - Gastro-esophageal reflux disease without esophagitis Disposition: HOME, SELF-CARE Condition: Stable Departure-Patient Inst. Decision time for Depature: 23:26 Referrals: LADONNA PORTILLO MD (PCP/Family) Primary Care Physician Patient Instructions: Acid Reflux (Gastroesophageal Reflux Disease), Adult (DC) Add. Discharge Instructions: Follow up with GI or primary provider about your chronic epigastric abdominal pain and heartburn symptoms. All discharge instructions reviewed with patient and/or family. Voiced understanding. HILARY VALDEZ MD Feb 23, 2019 21:10
[2019-02-23 21:20] LABS: INR 0.9 (0.8-1.4); PROTHROMBIN TIME PATIENT 12.6 SEC (12.2-14.7)
[2019-02-23 21:42] LABS: CHLORIDE 107 MMOL/L (98-107); POTASSIUM 4.5 MMOL/L (3.6-5.0); SODIUM 139 MMOL/L (135-145)
[2019-02-23 21:43] LABS: ALANINE AMINOTRANSFERASE 6 U/L (0-55); ALKALINE PHOSPHATASE 61 U/L (40-136); BILIRUBIN,TOTAL 0.2 MG/DL (0.1-1.0); BUN/CREATININE RATIO 17; CARBON DIOXIDE 21 MMOL/L (21-32); CREATININE SERUM 0.64 MG/DL (0.60-1.30); GFR ESTIMATED > 60; GLUCOSE 206 MG/DL (70-105); LIPASE 13 U/L (8-78); TOTAL PROTEIN 6.9 GM/DL (6.4-8.2)
[2019-02-23] MEDS ORDERED: ANTACID SUSP 30 ML UDC (MYLANTA) PO ONE (22:00)
[2019-02-23] MEDS ORDERED: LIDOCAINE 2% VISCOUS 15 ML UDC PO ONE (22:00)
[2019-02-23 23:20] LABS: BILIRUBIN,URINE NEGATIVE (NEGATIVE); CLARITY,URINE CLEAR; COLOR,URINE YELLOW; KETONES,URINE NEGATIVE (NEGATIVE); LEUKOCYTE ESTERASE ,URINE NEGATIVE (NEGATIVE); NITRITE,URINE NEGATIVE (NEGATIVE); UROBILINOGEN,URINE 0.2 MG/DL (NORMAL)
[2019-02-23 23:21] LABS: BACTERIA,URINE TRACE /HPF; GLUCOSE, URINE (UA) 1+ (NEGATIVE); PROTEIN,URINE NEGATIVE (NEGATIVE); WBC,URINE 0-2 /HPF
[2019-02-24 00:25] VITALS: BP 189/98
== END 2019-02-24 00:25 | disposition home or self-care (01) ==
LOC: EDUNIT# 20:42 → ER FS 20:43
DX: K21.9 Gastro-esophageal reflux disease without esophagitis (principal); E78.00 Pure hypercholesterolemia, unspecified; I10 Essential (primary) hypertension; E11.9 Type 2 diabetes mellitus without complications; M79.7 Fibromyalgia; F41.9 Anxiety disorder, unspecified; F32.9 Major depressive disorder, single episode, unspecified; F91.3 Oppositional defiant disorder; F42.9 Obsessive-compulsive disorder, unspecified; D64.9 Anemia, unspecified; E66.01 Morbid (severe) obesity due to excess calories; Z68.44 Body mass index [BMI] 60.0-69.9, adult; Z91.5 Personal history of self-harm; Z86.73 Personal history of transient ischemic attack (TIA), and cerebral infarction without residual deficits; Z79.84 Long term (current) use of oral hypoglycemic drugs; Z88.8 Allergy status to other drugs, medicaments and biological substances; Z79.01 Long term (current) use of anticoagulants; Z86.711 Personal history of pulmonary embolism
CPT/HCPCS: 36415; 80053; 81000; 83690; 84703; 85025; 85610; 85730; 96361; 96374; 96375

== ENCOUNTER 2019-03-11 17:39 | Emergency (ER) | payer MEDICARE, MEDICAID ==
[~2019-03-11] VITALS: Ht 162.5 cm; Wt 172.3 kg
[2019-03-11] MEDS ORDERED: PROMETHAZINE INJ 25 MG/ML (PHENERGAN) AMP IM ONE (18:00)
[2019-03-11] MEDS ORDERED: LORazepam INJ 2 MG/ML (ATIVAN) VIAL IVP ONE (18:00)
[2019-03-11] MEDS ORDERED: HALOPERIDOL 5 MG/ML (HALDOL) AMP IV ONE (18:00)
[2019-03-11] MEDS ORDERED: PANTOPRAZOLE 40 MG (PROTONIX) VIAL IV ONE (18:00)
[2019-03-11] MEDS ORDERED: NS IV 1000 ML 1,000 ML IV SCH (18:00)
[2019-03-11 18:04] LABS: WHITE BLOOD COUNT 12.5 10^3/uL (4.3-11.0)
[2019-03-11 18:05] LABS: BASOPHILS # (AUTO) 0.1 10^3/uL (0.0-0.1); BASOPHILS % (AUTO) 1 % (0-10); EOSINOPHILS # (AUTO) 0.2 10^3/uL (0.0-0.3); EOSINOPHILS % (AUTO) 1 % (0-10); HEMATOCRIT 43 % (35-52); HEMOGLOBIN 13.2 G/DL (11.5-16.0); LYMPHOCYTES # (AUTO) 1.6 X 10^3 (1.0-4.0); LYMPHOCYTES % (AUTO) 13 % (12-44); MEAN CORPUSCULAR HEMOGLOBIN 22 PG (25-34); MEAN CORPUSCULAR HGB CONC 31 G/DL (32-36); MEAN CORPUSCULAR VOLUME 71 FL (80-99); MONOCYTES % (AUTO) 3 % (0-12); NEUTROPHILS # (AUTO) 10.3 X 10^3 (1.8-7.8); NEUTROPHILS % (AUTO) 82 % (42-75); PLATELET COUNT 390 10^3/uL (130-400); RED CELL DISTRIBUTION WIDTH 17.9 % (10.0-14.5)
--- NOTE | 2019-03-11 18:14 | ED Abdominal Pain ---
General Chief Complaint: Abdominal/GI Problems Stated Complaint: ABD PAIN Nursing Triage Note: Patient brought in via [facility] with c/o abdominal pain, nausea, vomiting, and shortness of breath. States that her vomiting started around noon and she has had appoximately 4 episodes. She states her pain is so bad that it makes it difficult to breathe. She continues to writhe around in the bed stating that she needs something for the pain. Sepsis Screen: Possible Severe Sepsis Risk Source of Information: Patient, EMS History of Present Illness Date Seen by Provider: Mar 11, 2019 Time Seen by Provider: 17:43 Initial Comments 33-year-old female presenting with complaints of epigastric pain and vomiting. This is a chronic recurrent issue for her. She states that this episode started around noon today. She is writhing all over the bed and moaning very loudly especially when she has people in the room to see her. She denies any fever or chills. She states that she's been nauseated and not keeping anything down. She has not had any actual vomiting here in the emergency department. She has some saliva and spit in the emesis basin from the paramedics. Allergies and Home Medications Allergies Coded Allergies: metformin (Verified Allergy, Unknown, 08/21/15) spironolactone (Verified Allergy, Unknown, 08/21/15) Home Medications Alprazolam 2 Mg Tablet, 2 MG PO Q6H PRN for ANXIETY, (Reported) Atorvastatin Calcium 40 Mg Tablet, 40 MG PO DAILY, (Reported) Buspirone HCl 15 Mg Tablet, 15 MG PO TID, (Reported) Fentanyl 1 Each Patch.td72, 50 MCG TD Q72H, (Reported) Hydrocodone/Acetaminophen 1 Each Tablet, 1 EACH PO Q6H, (Reported) Hyoscyamine Sulfate 0.125 Mg Tab.subl, 1-2 TAB SL Q4H Prescribed by: MUNA LINK on 11/05/1834 Losartan/Hydrochlorothiazide 1 Each Tablet, 1 EACH PO DAILY, (Reported) Mirtazapine 15 Mg Tablet, 15 MG PO HS, (Reported) Naproxen 500 Mg Tablet, 500 MG PO BID, (Reported) Nitrofurantoin Monohyd/M-Cryst 100 Mg Capsule, 100 MG PO BID Prescribed by: MUNA LINK on 11/05/1834 Omeprazole 20 Mg Tablet.dr, 20 MG PO BID, (Reported) Ondansetron 4 Mg Tab.rapdis, 4 MG SL Q4H PRN for NAUSEA/VOMITING Prescribed by: IBIS NOEL on 07/02/18 0239 Oxycodone HCl/Acetaminophen 1 Each Tablet, 1 EACH PO Q6H, (Reported) Paroxetine HCl 30 Mg Tablet, 30 MG PO DAILY, (Reported) Paroxetine HCl 20 Mg Tablet, 20 MG PO DAILY, (Reported) Pregabalin 300 Mg Capsule, 300 MG PO Q12H, (Reported) Prochlorperazine Maleate 25 Mg Supp.rect, 25 MG RC Q8H PRN for NAUSEA/VOMITING Prescribed by: JORGE THORNTON on 06/03/18 1148 Promethazine HCl 50 Mg Supp.rect, 50 MG RC Q4H Prescribed by: MUNA LINK on 08/21/152217 Ropinirole HCl 0.5 Mg Tablet, 0.5 MG PO Q8H, (Reported) Scopolamine 1 Each Patch.td72, 1 EACH TD Q72 HOURS Prescribed by: MUNA LINK on 08/21/152217 Sitagliptin Phosphate 100 Mg Tablet, 100 MG PO DAILY, (Reported) Warfarin Sodium 10 Mg Tablet, 10 MG PO DAILY, (Reported) Warfarin Sodium 1 Mg Tablet, 3 MG PO DAILY, (Reported) Zolpidem Tartrate 10 Mg Tablet, 10 MG PO HS PRN for INSOMNIA, (Reported) Patient Home Medication List Home Medication List Reviewed: Yes Review of Systems Review of Systems Constitutional: No chills EENTM: No See HPI, No Blurred Vision, No Double Vision Respiratory: No Symptoms Reported Cardiovascular: No Symptoms Reported Gastrointestinal: Abdominal Pain, Blood Streaked Stools, Constipated, Diarrhea, Difficulty Swallowing, Nausea, Vomiting Genitourinary: No Symptoms Reported Musculoskeletal: no symptoms reported Skin: no symptoms reported Psychiatric/Neurological: No Symptoms Reported Past Gbutpwt-Eijmak-Zilpsy Hx Past Med/Social Hx: Reviewed Nursing Past Med/Soc Hx Patient Social History Alcohol Use: Denies Use Recreational Drug Use: Yes Drug of Choice: Occasional Marijuana Smoking Status: Current Everyday Smoker Type Used: Cigarettes 2nd Hand Smoke Exposure: No Recent Foreign Travel: No Contact w/Someone Who Travel: No Recent Infectious Disease Expo: No Recent Hopitalizations: No Physical Abuse: No Sexual Abuse: No Mistreated: No Fear: No Past Medical History Surgeries: Yes (EGD) Gallbladder Respiratory: Yes Pulmonary Embolism Cardiac: Yes High Cholesterol, Hypertension Neurological: Yes Stroke Reproductive Disorders: Yes Female Reproductive Disorders: Endometriosis, Polycystic Ovarian Dis Genitourinary: Yes Bladder Infection Gastrointestinal: Yes Gastroesophageal Reflux, Ulcer Musculoskeletal: Yes (CHRONIC KNEE PAIN, RESTLESS LEG SYNDROME) Fibromyalgia Endocrine: Yes (MORBID OBESITY--> 400 LBS. ) Diabetes, Insulin dep HEENT: No Cancer: No Psychosocial: Yes (OCD, opiod dependence, daily THC use) Sleep Difficulties, Anxiety, ODD, Suicide Attempts, Depression Integumentary: No Blood Disorders: Yes (ANEMIA) Adverse Reaction/Blood Tranf: No Physical Exam Vital Signs Vital Signs - First Documented 03/11/19 17:43 Temp 36.0 Pulse 101 Resp 28 B/P (MAP) 155/132 (140) Pulse Ox 99 O2 Delivery Room Air Capillary Refill : Less Than 3 Seconds Height/Weight/BMI Height: 5'4.00" Weight: 378lbs. 0oz. [id number]; 65.00 BMI Method:Stated General Appearance: moderate distress (writhing on the bed and moaning and crying out), obese (morbidly obese) HEENT: PERRL/EOMI, pharynx normal Neck: non-tender, full range of motion, supple, normal inspection Respiratory: chest non-tender, lungs clear, normal breath sounds Cardiovascular: normal peripheral pulses, regular rate, rhythm Gastrointestinal: normal bowel sounds, non tender, soft, no pulsatile mass Extremities: normal range of motion, non-tender, normal inspection Neurologic/Psychiatric: alert, oriented x 3, other (anxious about what is causing her symptoms) Progress/Results/Core Measures Results/Orders Lab Results Laboratory Tests Test 03/11/19 17:50 03/11/19 18:50 Range/Units White Blood Count 12.5 H 4.3-11.0 10^3/uL Red Blood Count 6.05 H 4.35-5.85 10^6/uL Hemoglobin 13.2 11.5-16.0 G/DL Hematocrit 43 35-52 % Mean Corpuscular Volume 71 L 80-99 FL Mean Corpuscular Hemoglobin 22 L 25-34 PG Mean Corpuscular Hemoglobin Concent 31 L 32-36 G/DL Red Cell Distribution Width 17.9 H 10.0-14.5 % Platelet Count 390 130-400 10^3/uL Mean Platelet Volume 9.0 7.4-10.4 FL Neutrophils (%) (Auto) 82 H 42-75 % Lymphocytes (%) (Auto) 13 12-44 % Monocytes (%) (Auto) 3 0-12 % Eosinophils (%) (Auto) 1 0-10 % Basophils (%) (Auto) 1 0-10 % Neutrophils # (Auto) 10.3 H 1.8-7.8 X 10^3 Lymphocytes # (Auto) 1.6 1.0-4.0 X 10^3 Monocytes # (Auto) 4.0 H 0.0-1.0 X 10^3 Eosinophils # (Auto) 0.2 0.0-0.3 10^3/uL Basophils # (Auto) 0.1 0.0-0.1 10^3/uL Sodium Level 138 135-145 MMOL/L Potassium Level 4.3 3.6-5.0 MMOL/L Chloride Level 104 98-107 MMOL/L Carbon Dioxide Level 19 L 21-32 MMOL/L Anion Gap 15 H 5-14 MMOL/L Blood Urea Nitrogen 14 7-18 MG/DL Creatinine 0.66 0.60-1.30 MG/DL Estimat Glomerular Filtration Rate > 60 BUN/Creatinine Ratio 21 Glucose Level 253 H 70-105 MG/DL Calcium Level 9.2 8.5-10.1 MG/DL Corrected Calcium 9.1 8.5-10.1 MG/DL Total Bilirubin 0.3 0.1-1.0 MG/DL Aspartate Amino Transf (AST/SGOT) 11 5-34 U/L Alanine Aminotransferase (ALT/SGPT) 9 0-55 U/L Alkaline Phosphatase 63 40-136 U/L Total Protein 7.1 6.4-8.2 GM/DL Albumin 4.1 3.2-4.5 GM/DL Lipase 10 8-78 U/L Urine Color YELLOW Urine Clarity CLEAR Urine pH 5.5 5-9 Urine Specific [place] >1.030 1.016-1.022 Urine Protein TRACE NEGATIVE Urine Glucose (UA) 2+ H NEGATIVE Urine Ketones 1+ H NEGATIVE Urine Nitrite NEGATIVE NEGATIVE Urine Bilirubin 1+ H NEGATIVE Urine Urobilinogen 0.2 NORMAL MG/DL Urine Leukocyte Esterase NEGATIVE NEGATIVE Urine RBC (Auto) NEGATIVE NEGATIVE Urine RBC NONE /HPF Urine WBC RARE /HPF Urine Squamous Epithelial Cells 25-50 H /HPF Urine Crystals NONE /LPF Urine Bacteria FEW H /HPF Urine Casts NONE /LPF Urine Mucus SMALL H /LPF Urine Culture Indicated NO My Orders Orders - HILARY VALDEZ MD Comprehensive Metabolic Panel (03/11/19 17:56) Lipase (03/11/19 17:56) Ua Culture If Indicated (03/11/19 17:56) Ed Iv/Invasive Line Start (03/11/19 17:56) Cbc With Automated Diff (03/11/19 17:56) Ns Iv 1000 Ml (Sodium Chloride 0.9%) (03/11/19 18:00) Lorazepam Injection (Ativan Injection) (03/11/19 18:00) Haloperidol Injection (Haldol Injectio (03/11/19 18:00) Pantoprazole Injection (Protonix Injecti (03/11/19 18:00) Promethazine Injection (Phenergan Injec (03/11/19 18:00) Lidocaine 2% Viscous 15 Ml (Xylocaine Vi (03/11/19 20:00) Antacid Suspension (Mylanta Suspension (03/11/19 20:00) Rx-Ondansetron Po (Rx-Zofran Po) (03/11/19 20:15) Ketorolac Injection (Toradol Injection) (03/11/19 21:00) Medications Given in ED Current Medications Medications Dose Ordered Sig/Becki Route Start Time Stop Time Status Last Admin Dose Admin Al Hydrox/Mg Hydrox/Simethicone 30 ml ONCE ONCE PO 03/11/19 20:00 03/11/19 20:01 DC 03/11/19 20:13 30 ML Haloperidol Lactate 5 mg ONCE ONCE IV 03/11/19 18:00 03/11/19 18:01 DC 03/11/19 18:06 5 MG Ketorolac Tromethamine 30 mg ONCE ONCE IVP 03/11/19 21:00 03/11/19 21:01 DC 03/11/19 20:55 30 MG Lidocaine HCl 15 ml ONCE ONCE PO 03/11/19 20:00 03/11/19 20:01 DC 03/11/19 20:14 15 ML Lorazepam 1 mg ONCE ONCE IVP 03/11/19 18:00 03/11/19 18:01 DC 03/11/19 18:09 1 MG Pantoprazole 40 mg ONCE ONCE IV 03/11/19 18:00 03/11/19 18:01 DC 03/11/19 18:09 40 MG Promethazine HCl 25 mg ONCE ONCE IM 03/11/19 18:00 03/11/19 18:01 DC 03/11/19 18:06 25 MG Vital Signs/I&O 03/11/19 03/11/19 17:43 21:02 Temp 36.0 Pulse 101 61 Resp 28 16 B/P (MAP) 155/132 (140) 123/68 Pulse Ox 99 98 O2 Delivery Room Air Room Air 03/12/19 00:00 Intake Total 1000 ml Balance 1000 ml Blood Pressure Mean: 140 Progress Progress Note : Progress Note Obtain basic labs and urine. Give IV fluids for hydration. For nausea Give dose of Ativan 1 mg along with haloperidol 5 mg. Protonix for gastritis and amoxicillin. The medications were helping some. The patient was given a GI cocktail and a dos e of Toradol as she was asking for something for pain. Her labs are all very reassuring and did not indicate any signs of acute gastroenteritis or appendicitis or anything that was surgical for his belly. Encouraged follow-up through the clinic for continued concerns. Counseled on wound management. Departure Impression Primary Impression: Chronic abdominal pain Additional Impressions: Gastritis Qualified Codes: K29.50 - Unspecified chronic gastritis without bleeding Anxiety about health Disposition: 01 HOME, SELF-CARE Condition: Stable Departure-Patient Inst. Decision time for Depature: 20:00 Referrals: SELFLADONNA MD (PCP/Family) Primary Care Physician [facility] Patient Instructions: Chronic Pain (DC), Gastritis (DC), Ulcer and Gastritis Diet Add. Discharge Instructions: Follow up with clinic about your chronic stomach pain and they may want you to see a GI doctor again about your symptoms. Follow a liquid diet for 24-48 hours then you may advance back to a bland diet as you tolerate it. All discharge instructions reviewed with patient and/or family. Voiced understanding. HILARY VALDEZ MD Mar 11, 2019 18:13
[2019-03-11 18:25] LABS: ALANINE AMINOTRANSFERASE 9 U/L (0-55); ALBUMIN 4.1 GM/DL (3.2-4.5); ALKALINE PHOSPHATASE 63 U/L (40-136); BILIRUBIN,TOTAL 0.3 MG/DL (0.1-1.0); BUN/CREATININE RATIO 21; CALCIUM 9.2 MG/DL (8.5-10.1); CARBON DIOXIDE 19 MMOL/L (21-32); CHLORIDE 104 MMOL/L (98-107); CREATININE SERUM 0.66 MG/DL (0.60-1.30); GFR ESTIMATED > 60; GLUCOSE 253 MG/DL (70-105); LIPASE 10 U/L (8-78); POTASSIUM 4.3 MMOL/L (3.6-5.0); SODIUM 138 MMOL/L (135-145); TOTAL PROTEIN 7.1 GM/DL (6.4-8.2)
[2019-03-11 19:14] LABS: BACTERIA,URINE FEW /HPF; BILIRUBIN,URINE 1+ (NEGATIVE); CLARITY,URINE CLEAR; COLOR,URINE YELLOW; GLUCOSE, URINE (UA) 2+ (NEGATIVE); KETONES,URINE 1+ (NEGATIVE); LEUKOCYTE ESTERASE ,URINE NEGATIVE (NEGATIVE); NITRITE,URINE NEGATIVE (NEGATIVE); PH,URINE 5.5 (5-9); PROTEIN,URINE TRACE (NEGATIVE); SQUAMOUS EPITHELIAL CELL,UR 25-50 /HPF; WBC,URINE RARE /HPF
[2019-03-11] MEDS ORDERED: ANTACID SUSP 30 ML UDC (MYLANTA) PO ONE (20:00)
[2019-03-11] MEDS ORDERED: LIDOCAINE 2% VISCOUS 15 ML UDC PO ONE (20:00)
[2019-03-11] MEDS ORDERED: RX-ONDANSETRON 4 MG ODT (ZOFRAN) PPK #4 PO PRN (20:15)
[2019-03-11] MEDS ORDERED: KETOROLAC 30 MG/ML VIAL IVP ONE (21:00)
[2019-03-11 21:02] VITALS: BP 123/68
== END 2019-03-11 21:02 | disposition home or self-care (01) ==
LOC: EDUNIT# 17:39 → ER FS 17:41
DX: K29.50 Unspecified chronic gastritis without bleeding (principal); G89.29 Other chronic pain; F41.9 Anxiety disorder, unspecified; I10 Essential (primary) hypertension; E11.9 Type 2 diabetes mellitus without complications; F32.9 Major depressive disorder, single episode, unspecified; E78.00 Pure hypercholesterolemia, unspecified; F91.3 Oppositional defiant disorder; D64.9 Anemia, unspecified; K21.9 Gastro-esophageal reflux disease without esophagitis; M79.7 Fibromyalgia; E66.01 Morbid (severe) obesity due to excess calories; F17.210 Nicotine dependence, cigarettes, uncomplicated; Z86.73 Personal history of transient ischemic attack (TIA), and cerebral infarction without residual deficits; Z86.711 Personal history of pulmonary embolism; Z68.44 Body mass index [BMI] 60.0-69.9, adult; Z88.8 Allergy status to other drugs, medicaments and biological substances; Z79.84 Long term (current) use of oral hypoglycemic drugs; Z79.01 Long term (current) use of anticoagulants
CPT/HCPCS: 36415; 80053; 81000; 83690; 85025; 99283

== ENCOUNTER 2019-11-24 10:51 | Emergency (ER) | payer MEDICARE, MEDICAID ==
[~2019-11-24] VITALS: Ht 162 cm; Wt 192.2 kg
[~2019-11-24 10:51] MED LIST changes: +ACHYD1T PO; -HYDR-3820 PO; -ROPI0.5T2 PO; +ROPI0.5T4 PO; -WARF10TA44 PO; +WRF10T PO
--- NOTE | 2019-11-24 11:12 | ED Lower Extremity ---
General Chief Complaint: Lower Extremity Stated Complaint: L LEG SWELLING Source: patient Exam Limitations: no limitations (LYNN GREENBERG,MED STUDENT) History of Present Illness Date Seen by Provider: Nov 24, 2019 Time Seen by Provider: 11:02 Initial Comments Ms. Painter is a 34 year old female that presents to the emergency department this morning with complaints of lower extremity pain and swelling that began 4 days ago. The swelling is localized to her left upper thigh with pain throughout her left leg. She states it began mild but has worsened. The pain is worse with palpation, movement, and weight bearing. She has tried OTC naproxen for pain control with no relief. 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 She denies fever, shortness of breath, or cough. She does admit to dizziness. Severity: moderate Pain/Injury Location: left thigh Method of Injury: unknown Modifying Factors: Worse With Movement (LYNN GREENBERG,MED STUDENT) Allergies and Home Medications Allergies Coded Allergies: metformin (Verified Allergy, Unknown, 08/21/15) spironolactone (Verified Allergy, Unknown, 08/21/15) Home Medications Alprazolam 2 Mg Tablet, 2 MG PO Q6H PRN for ANXIETY, (Reported) Apixaban 5 Mg Tablet, 5 MG PO BID TAKE 2 TABLETS BID X 7 DAYS, THEN 1 TABLET BID Prescribed by: JORGE THORNTON on 11/24/19 1217 Atorvastatin Calcium 40 Mg Tablet, 40 MG PO DAILY, (Reported) Buspirone HCl 15 Mg Tablet, 15 MG PO TID, (Reported) Fentanyl 1 Each Patch.td72, 50 MCG TD Q72H, (Reported) Hydrocodone Bit/Acetaminophen 1 Each Tablet, 1 EACH PO Q6H, (Reported) Hydrocodone/Acetaminophen 1 Each Tablet, 1 EACH PO Q4-6HR PRN for PAIN-MODERATE Prescribed by: JORGE THORNTON on 11/24/19 1219 Hyoscyamine Sulfate 0.125 Mg Tab.subl, 1-2 TAB SL Q4H Prescribed by: MUNA LINK on 11/05/18 0035 Losartan/Hydrochlorothiazide 1 Each Tablet, 1 EACH PO DAILY, (Reported) Mirtazapine 15 Mg Tablet, 15 MG PO HS, (Reported) Naproxen 500 Mg Tablet, 500 MG PO BID, (Reported) Nitrofurantoin Monohyd/M-Cryst 100 Mg Capsule, 100 MG PO BID Prescribed by: MUNA LINK on 11/05/18 0035 Omeprazole 20 Mg Tablet.dr, 20 MG PO BID, (Reported) Ondansetron 4 Mg Tab.rapdis, 4 MG SL Q4H PRN for NAUSEA/VOMITING Prescribed by: IBIS NOEL on 07/02/18 0239 Oxycodone HCl/Acetaminophen 1 Each Tablet, 1 EACH PO Q6H, (Reported) Paroxetine HCl 30 Mg Tablet, 30 MG PO DAILY, (Reported) Paroxetine HCl 20 Mg Tablet, 20 MG PO DAILY, (Reported) Pregabalin 300 Mg Capsule, 300 MG PO Q12H, (Reported) Prochlorperazine Maleate 25 Mg Supp.rect, 25 MG RC Q8H PRN for NAUSEA/VOMITING Prescribed by: JORGE THORNTON on 06/03/18 1148 Promethazine HCl 50 Mg Supp.rect, 50 MG RC Q4H Prescribed by: MUNA LINK on 08/21/15 2218 Ropinirole HCl 0.5 Mg Tablet, 0.5 MG PO Q8H, (Reported) Scopolamine 1 Each Patch.td72, 1 EACH TD Q72 HOURS Prescribed by: MUNA LINK on 08/21/152217 Sitagliptin Phosphate 100 Mg Tablet, 100 MG PO DAILY, (Reported) Warfarin Sodium 10 Mg Tablet, 10 MG PO DAILY, (Reported) Warfarin Sodium 1 Mg Tablet, 3 MG PO DAILY, (Reported) Zolpidem Tartrate 10 Mg Tablet, 10 MG PO HS PRN for INSOMNIA, (Reported) Patient Home Medication List Home Medication List Reviewed: Yes (YLNN GREENBERG,MED STUDENT) Review of Systems Constitutional: No chills; dizziness; No fever EENTM: no symptoms reported Respiratory: No cough, No short of breath Cardiovascular: No chest pain Gastrointestinal: no symptoms reported Genitourinary: no symptoms reported Musculoskeletal: other (left upper leg pain and swelling) (LYNN GREENBERG,CHRISTIAN STUDENT) Past Untvvst-Lbaghp-Wgezds Hx Patient Social History Alcohol Use: Denies Use Recreational Drug Use: Yes Drug of Choice: Occasional Marijuana Smoking Status: Former Smoker Type Used: Cigarettes (1.5 PPD) 2nd Hand Smoke Exposure: No Recent Foreign Travel: No Contact w/Someone Who Travel: No Recent Hopitalizations: No (LYNN GREENBERG,Dynamics Direct STUDENT) Past Medical History Surgeries: Yes (EGD) Gallbladder Respiratory: Yes Pulmonary Embolism Cardiac: Yes High Cholesterol, Hypertension Neurological: Yes Stroke Reproductive Disorders: Yes Female Reproductive Disorders: Endometriosis, Polycystic Ovarian Dis Genitourinary: Yes Bladder Infection Gastrointestinal: Yes Gastroesophageal Reflux, Ulcer Musculoskeletal: Yes (CHRONIC KNEE PAIN, RESTLESS LEG SYNDROME) Fibromyalgia Endocrine: Yes (MORBID OBESITY--> 400 LBS. ) Diabetes, Insulin dep HEENT: No Cancer: No Psychosocial: Yes (OCD) Sleep Difficulties, Anxiety, ODD, Suicide Attempts, Depression Integumentary: No Blood Disorders: Yes (ANEMIA) Adverse Reaction/Blood Tranf: No (LYNN GREENBERG,Dynamics Direct STUDENT) Physical Exam Vital Signs Vital Signs - First Documented 11/24/19 10:55 Temp 36.6 Pulse 108 Resp 22 B/P (MAP) 195/101 (132) Pulse Ox 97 O2 Delivery Room Air (JORGE THORNTON APRN) Vital Signs Capillary Refill : (LYNN GREENBERG,Dynamics Direct STUDENT) Height, Weight, BMI Height: 5'4.00" Weight: 378lbs. 0oz. [phone]; 65.00 BMI Method:Stated General Appearance: WD/WN, no apparent distress, obese HEENT: PERRL/EOMI Cardiovascular: regular rate, rhythm, no murmur Respiratory: chest non-tender, lungs clear, normal breath sounds, no respiratory distress, no accessory muscle use Legs: left leg pain (and swelling noted over anterior medial left thigh with prominent superficial veins) Neurologic/Psychiatric: alert, normal mood/affect, oriented x 3 (LYNN GREENBERG,MED STUDENT) Progress/Results/Core Measures Results/Orders Lab Results Laboratory Tests Test 11/24/19 11:11 11/24/19 11:14 Range/Units Urine Color YELLOW Urine Clarity CLEAR Urine pH 6.0 5-9 Urine Specific [place] 1.025 H 1.016-1.022 Urine Protein NEGATIVE NEGATIVE Urine Glucose (UA) 3+ H NEGATIVE Urine Ketones NEGATIVE NEGATIVE Urine Nitrite NEGATIVE NEGATIVE Urine Bilirubin NEGATIVE NEGATIVE Urine Urobilinogen 0.2 < = 1.0 MG/DL Urine Leukocyte Esterase NEGATIVE NEGATIVE Urine RBC (Auto) NEGATIVE NEGATIVE Urine RBC RARE /HPF Urine WBC RARE /HPF Urine Squamous Epithelial Cells 0-2 /HPF Urine Crystals NONE /LPF Urine Bacteria FEW H /HPF Urine Casts NONE /LPF Urine Mucus NEGATIVE /LPF Urine Yeast FEW H /HPF Urine Culture Indicated YES Urine Opiates Screen NEGATIVE NEGATIVE Urine Oxycodone Screen NEGATIVE NEGATIVE Urine Methadone Screen NEGATIVE NEGATIVE Urine Propoxyphene Screen NEGATIVE NEGATIVE Urine Barbiturates Screen NEGATIVE NEGATIVE Ur Tricyclic Antidepressants Screen POSITIVE H NEGATIVE Urine Phencyclidine Screen NEGATIVE NEGATIVE Urine Amphetamines Screen NEGATIVE NEGATIVE Urine Methamphetamines Screen NEGATIVE NEGATIVE Urine Benzodiazepines Screen NEGATIVE NEGATIVE Urine Cocaine Screen NEGATIVE NEGATIVE Urine Cannabinoids Screen NEGATIVE NEGATIVE White Blood Count 13.6 H 4.3-11.0 10^3/uL Red Blood Count 5.92 H 4.35-5.85 10^6/uL Hemoglobin 13.8 11.5-16.0 G/DL Hematocrit 43 35-52 % Mean Corpuscular Volume 73 L 80-99 FL Mean Corpuscular Hemoglobin 23 L 25-34 PG Mean Corpuscular Hemoglobin Concent 32 32-36 G/DL Red Cell Distribution Width 18.1 H 10.0-14.5 % Platelet Count 344 130-400 10^3/uL Mean Platelet Volume 9.5 7.4-10.4 FL Neutrophils (%) (Auto) 66 42-75 % Lymphocytes (%) (Auto) 25 12-44 % Monocytes (%) (Auto) 6 0-12 % Eosinophils (%) (Auto) 4 0-10 % Basophils (%) (Auto) 0 0-10 % Neutrophils # (Auto) 8.9 H 1.8-7.8 X 10^3 Lymphocytes # (Auto) 3.3 1.0-4.0 X 10^3 Monocytes # (Auto) 0.8 0.0-1.0 X 10^3 Eosinophils # (Auto) 0.5 H 0.0-0.3 10^3/uL Basophils # (Auto) 0.0 0.0-0.1 10^3/uL Sodium Level 138 135-145 MMOL/L Potassium Level 4.3 3.6-5.0 MMOL/L Chloride Level 104 98-107 MMOL/L Carbon Dioxide Level 23 21-32 MMOL/L Anion Gap 11 5-14 MMOL/L Blood Urea Nitrogen 14 7-18 MG/DL Creatinine 0.81 0.60-1.30 MG/DL Estimat Glomerular Filtration Rate > 60 BUN/Creatinine Ratio 17 Glucose Level 290 H 70-105 MG/DL Calcium Level 9.6 8.5-10.1 MG/DL Corrected Calcium 9.6 8.5-10.1 MG/DL Total Bilirubin 0.3 0.1-1.0 MG/DL Aspartate Amino Transf (AST/SGOT) 15 5-34 U/L Alanine Aminotransferase (ALT/SGPT) 19 0-55 U/L Alkaline Phosphatase 69 40-136 U/L Total Protein 7.3 6.4-8.2 GM/DL Albumin 4.0 3.2-4.5 GM/DL Serum Test, Qualitative NEGATIVE NEGATIVE (JORGE THORNTON APRN) My Orders Orders - JORGE THORNTON APRN Cbc With Automated Diff (11/24/19 11:06) Comprehensive Metabolic Panel (11/24/19 11:06) Ua Culture If Indicated (11/24/19 11:06) Drug Screen Stat (Urine) (11/24/19 11:06) Hcg,Qualitative Serum (11/24/19 11:06) Ed Iv/Invasive Line Start (11/24/19 11:06) Fentanyl Injection (Sublimaze Injection (11/24/19 11:15) Us Venous Lower Ext Lt (11/24/19 11:06) Urine Culture (11/24/19 11:11) (JORGE THORNTON APRN) Medications Given in ED Current Medications Medications Dose Ordered Sig/Becki Route Start Time Stop Time Status Last Admin Dose Admin Fentanyl Citrate 50 mcg ONCE ONCE IVP 11/24/19 11:15 11/24/19 11:16 DC 11/24/19 11:15 50 MCG (JORGE THORNTON APRN) Vital Signs/I&O 11/24/19 10:55 Temp 36.6 Pulse 108 Resp 22 B/P (MAP) 195/101 (132) Pulse Ox 97 O2 Delivery Room Air (JORGE THORNTON APRN) Departure Communication (Admissions) 1205-I have seen the patient with Jaja, medical student. Agree with plan of care. She is in no distress. No hypoxia. Has a clot in greater saphenous vein all the way down to the lesser saphenous. However this is within 5 cm of the junction to the common femoral vein (i questioned orthotic finish grinding technician about proximty to deep system) and for that reason does warrant anticoagulation. (JORGE THORNTON APRN) Impression Primary Impression: Acute superficial venous thrombosis of left lower extremity Disposition: 01 HOME, SELF-CARE Condition: Stable Departure-Patient Inst. Decision time for Depature: 12:13 (JORGE THORNTON APRN) Referrals: LADONNA BEDOYA MD (PCP/Family) Primary Care Physician Patient Instructions: Superficial Phlebitis Add. Discharge Instructions: 1. Pain medication as directed. Follow-up with Dr. cruz or whoever your family doctor is this week for recheck. Obviously being on blood thinners caries and inherent risk for bleeding. As such a few fall and hit your head or injure herself in what would otherwise be considered trivial injury, it would warrant evaluation. Follow-up with your doctor this week for recheck and return to ER for any worsening. All discharge instructions reviewed with patient and/or family. Voiced understanding. Scripts Apixaban (Eliquis) 5 Mg Tablet 5 MG PO BID for 30 Days, #72 TAB TAKE 2 TABLETS BID X 7 DAYS, THEN 1 TABLET BID Prov: JORGE THORNTON APRN 11/24/19 Hydrocodone/Acetaminophen (Lorcet 5-325 mg Tablet) 1 Each Tablet 1 EACH PO Q4-6HR PRN for PAIN-MODERATE MDD 10 for 7 Days, #10 TAB Prov: JORGE THORNTON APRN 11/24/19 As above, I've seen the patient and agree with plan of care (JORGE THORNTON APRN) Copy Copies To 1: LADONNA BEDOYA MD, [place],MED STUDENT Nov 24, 2019 11:12 JORGE THORNTON APRN Nov 24, 2019 12:10
[2019-11-24] MEDS ORDERED: fentaNYL INJECTION 100 MCG/2 ML AMP IVP ONE (11:15)
[2019-11-24 11:19] LABS: BILIRUBIN,URINE NEGATIVE (NEGATIVE); CLARITY,URINE CLEAR; COLOR,URINE YELLOW; GLUCOSE, URINE (UA) 3+ (NEGATIVE); KETONES,URINE NEGATIVE (NEGATIVE); LEUKOCYTE ESTERASE ,URINE NEGATIVE (NEGATIVE); NITRITE,URINE NEGATIVE (NEGATIVE); PROTEIN,URINE NEGATIVE (NEGATIVE)
--- NOTE | 2019-11-24 11:24 | NUR ---
Ultrasound in room.
[2019-11-24 11:26] LABS: BASOPHILS % (AUTO) 0 % (0-10); EOSINOPHILS # (AUTO) 0.5 10^3/uL (0.0-0.3); EOSINOPHILS % (AUTO) 4 % (0-10); HEMATOCRIT 43 % (35-52); HEMOGLOBIN 13.8 G/DL (11.5-16.0); LYMPHOCYTES # (AUTO) 3.3 X 10^3 (1.0-4.0); LYMPHOCYTES % (AUTO) 25 % (12-44); MEAN CORPUSCULAR HEMOGLOBIN 23 PG (25-34); MEAN CORPUSCULAR HGB CONC 32 G/DL (32-36); MEAN CORPUSCULAR VOLUME 73 FL (80-99); MEAN PLATELET VOLUME 9.5 FL (7.4-10.4); MONOCYTES # (AUTO) 0.8 X 10^3 (0.0-1.0); MONOCYTES % (AUTO) 6 % (0-12); NEUTROPHILS # (AUTO) 8.9 X 10^3 (1.8-7.8); NEUTROPHILS % (AUTO) 66 % (42-75); PLATELET COUNT 344 10^3/uL (130-400); RED CELL DISTRIBUTION WIDTH 18.1 % (10.0-14.5); WHITE BLOOD COUNT 13.6 10^3/uL (4.3-11.0)
[2019-11-24 11:32] LABS: BACTERIA,URINE FEW /HPF; RBC,URINE RARE /HPF; SQUAMOUS EPITHELIAL CELL,UR 0-2 /HPF; WBC,URINE RARE /HPF; YEAST,URINE FEW /HPF
[2019-11-24 11:34] LABS: AMPHETAMINE SCREEN, URINE NEGATIVE (NEGATIVE); BARBITURATE SCREEN URINE NEGATIVE (NEGATIVE); BENZODIAZEPINES SCREEN URINE NEGATIVE (NEGATIVE); CANNABINOID SCREEN, URINE NEGATIVE (NEGATIVE); COCAINE SCREEN URINE NEGATIVE (NEGATIVE); METHADONE STAT NEGATIVE (NEGATIVE); METHAMPHETAMINE SCREEN URINE S NEGATIVE (NEGATIVE); OPIATE SCREEN URINE NEGATIVE (NEGATIVE); OXYCODONE STAT NEGATIVE (NEGATIVE); PROPOXYPHENE STAT NEGATIVE (NEGATIVE); TRICYCLIC ANTIDEPRESSANTS SCRE POSITIVE (NEGATIVE)
[2019-11-24 11:41] LABS: CHLORIDE 104 MMOL/L (98-107); POTASSIUM 4.3 MMOL/L (3.6-5.0); SODIUM 138 MMOL/L (135-145)
[2019-11-24 11:42] LABS: CALCIUM 9.6 MG/DL (8.5-10.1)
[2019-11-24 11:43] LABS: GLUCOSE 290 MG/DL (70-105); TOTAL PROTEIN 7.3 GM/DL (6.4-8.2)
[2019-11-24 11:44] LABS: CARBON DIOXIDE 23 MMOL/L (21-32)
[2019-11-24 11:45] LABS: BILIRUBIN,TOTAL 0.3 MG/DL (0.1-1.0)
[2019-11-24] MEDS ORDERED: HOLD METFORMIN - RECEIVED CONTRAST 20 ML VIAL IV SCH (11:45)
[2019-11-24] MEDS ORDERED: CATHETER FLUSH 10 ML SYR IV PRN (11:45)
[2019-11-24] MEDS ORDERED: NS 100 ML (IVPB) BAG IV ONE (11:45)
[2019-11-24] MEDS ORDERED: IOHEXOL 350 MG/ML 100 ML (OMNIPAQUE 350) VIAL IV ONE (11:45)
[2019-11-24 11:46] LABS: ALKALINE PHOSPHATASE 69 U/L (40-136)
[2019-11-24 11:47] LABS: CREATININE SERUM 0.81 MG/DL (0.60-1.30); GFR ESTIMATED > 60
[2019-11-24 11:48] LABS: BUN/CREATININE RATIO 17
[2019-11-24 11:49] LABS: ALANINE AMINOTRANSFERASE 19 U/L (0-55)
[2019-11-24] MEDS ORDERED: HYDR-3870 PO (12:17)
[2019-11-24] MEDS ORDERED: APIX5TAB PO (12:17)
--- OUTSIDE RECORDS SUMMARY | 2019-11-24 12:20 | XMS REPORT | Continuity of Care Document ---
Author Organization Unknown Address Unknown Phone Unavailable Allergies Active Description Code Type Severity Reaction Onset Reported/Identified Relationship to Patient Clinical Status Yes metformin [id number] Drug Allergy Unknown N/A 08/21/[id number] ug Allergy Unknown N/A 08/21/2015 Medications There is no data. 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, UNCO 08/21/2015 NIKOLAY DO, MUNA K Ot I10 ESSENTIAL (PRIMARY) HYPERTENSION 08/21/2015 NIKOLAY DO, MUNA K Ot K76.0 FATTY (CHANGE OF) LIVER, NOT ELSEWHERE C 08/21/2015 NIKOLAY DO, MUNA K Ot R10.13 EPIGASTRIC PAIN 08/21/2015 NIKOLAY , MUNA K Ot R11.2 NAUSEA WITH VOMITING, UNSPECIFIED 08/21/2015 NIKOLAY DO MUNA K Ot R16.1 SPLENOMEGALY, NOT ELSEWHERE CLASSIFIED 05/26/2018 TODD SCHMIDT Ot E11.9 TYPE 2 DIABETES MELLITUS WITHOUT COMPLIC 05/26/2018 BRAYAN TODD Ot E78.00 PURE HYPERCHOLESTEROLEMIA, UNSPECIFIED 05/26/2018 ARMIDA SCHMIDTIS Ot F32.9 MAJOR DEPRESSIVE DISORDER, SINGLE EPISOD 05/26/2018 ARMIDA SCHMIDTIS Ot F41.9 ANXIETY DISORDER, UNSPECIFIED 05/26/2018 BRAYAN TODD Ot F91.3 OPPOSITIONAL DEFIANT DISORDER 05/26/2018 BRAYAN TODD Ot I10 ESSENTIAL (PRIMARY) HYPERTENSION 05/26/2018 ARMIDA SCHMIDTIS Ot K21.9 GASTRO-ESOPHAGEAL REFLUX DISEASE WITHOUT 05/26/2018 BERNOT, TODD Ot R25.9 UNSPECIFIED ABNORMAL INVOLUNTARY MOVEMEN 05/26/2018 BERNOT, TODD Ot Z79.01 [employer] (CURRENT) USE OF ANTICOAGULANT 05/26/2018 BERNOT, TODD [...] INVOLUNTARY MOVEMEN 05/29/2018 BERNOT, TODD Ot Z79.01 LONG-TERM (CURRENT) USE OF ANTICOAGULANT 05/29/2018 BERNOT, TODD [...] DRUG/MEDS/BIOL SUB 06/03/2018 JORGE THORNTON APRN Ot E11 .9 TYPE 2 DIABETES MELLITUS WITHOUT COMPLIC 06/03/2018 JORGE THORNTON APRN Ot E78.00 PURE HYPERCHOLESTEROLEMIA, UNSPECIFIED 06/03/2018 JORGE THORNTON APRN Ot F32 .9 MAJOR DEPRESSIVE DISORDER, SINGLE EPISOD 06/03/2018 JORGE THORNTON APRN Ot F41 .9 ANXIETY DISORDER, UNSPECIFIED 06/03/2018 JORGE THORNTON APRN Ot F91 .3 OPPOSITIONAL DEFIANT DISORDER 06/03/2018 JORGE THORNTON APRN Ot I10 ESSENTIAL (PRIMARY) HYPERTENSION 06/03/2018 JORGE THORNTON APRN Ot K21 .9 GASTRO-ESOPHAGEAL REFLUX DISEASE WITHOUT 06/03/2018 JORGE THORNTON APRN Ot R10.12 LEFT UPPER QUADRANT PAIN 06/03/2018 JORGE THORNTON APRN Ot R11 .2 NAUSEA WITH VOMITING, UNSPECIFIED 06/03/2018 JORGE THORNTON APRN Ot Z79.01 LONG-TERM (CURRENT) USE OF ANTICOAGULANT 06/03/2018 JORGE THORNTON APRN Ot Z86.711 PERSONAL HISTORY OF PULMONARY EMBOLISM 06/03/2018 JORGE THORNTON APRN Ot Z86.73 PRSNL HX OF TIA (TIA), AND CEREB INFRC W 06/03/2018 JORGE THORNTON APRN Ot Z87.19 PERSONAL HISTORY OF OTHER DISEASES OF TH 06/03/2018 JORGE THORNTON APRN Ot Z87.448 PERSONAL HISTORY OF OTHER DISEASES OF UR 06/03/2018 JORGE THORNTON APRN Ot Z88 .8 ALLERGY STATUS TO OTH DRUG/MEDS/BIOL SUB 06/03/2018 JORGE THORNTON APRN Ot Z91.14 PATIENT'S OTHER NONCOMPLIANCE WITH MEDIC 06/05/2018 JORGE THORNTON APRN Ot E11 .9 TYPE 2 DIABETES MELLITUS WITHOUT COMPLIC 06/05/2018 JORGE THORNTON APRN Ot E78.00 PURE HYPERCHOLESTEROLEMIA, UNSPECIFIED 06/05/2018 JORGE THORNTON APRN Ot F32 .9 MAJOR DEPRESSIVE DISORDER, SINGLE EPISOD 06/05/2018 JORGE THORNTON APRN Ot F41 .9 ANXIETY DISORDER, UNSPECIFIED 06/05/2018 JORGE THORNTON APRN Ot F91 .3 OPPOSITIONAL DEFIANT DISORDER 06/05/2018 JORGE THORNTON APRN Ot I10 ESSENTIAL (PRIMARY) HYPERTENSION 06/05/2018 JORGE THORNTON APRN Ot K21 .9 GASTRO-ESOPHAGEAL REFLUX DISEASE WITHOUT 06/05/2018 JORGE THORNTON APRN Ot R10.12 LEFT UPPER QUADRANT PAIN 06/05/2018 JORGE THORNTON APRN Ot R11 .2 NAUSEA WITH VOMITING, UNSPECIFIED 06/05/2018 JORGE THORNTON APRN Ot Z79.01 LONG-TERM (CURRENT) USE OF ANTICOAGULANT 06/05/2018 JORGE THORNTON APRN Ot Z86.711 PERSONAL HISTORY OF PULMONARY EMBOLISM 06/05/2018 JORGE THORNTON APRN Ot Z86.73 PRSNL HX OF TIA (TIA), AND CEREB INFRC W 06/05/2018 JORGE THORNTON APRN Ot Z87.19 PERSONAL HISTORY OF OTHER DISEASES OF TH 06/05/2018 JORGE THORNTON APRN Ot Z87.448 PERSONAL HISTORY OF OTHER DISEASES OF UR 06/05/2018 JORGE THORNTON APRN, Ot Z88 .8 ALLERGY STATUS TO OTH DRUG/MEDS/BIOL SUB 06/05/2018 JORGE THORNTON APRN Ot Z91.14 PATIENT'S OTHER NONCOMPLIANCE WITH MEDIC 07/02/2018 REZA LLAMAS, IBIS Quintero Ot D72.829 ELEVATED WHITE BLOOD CELL COUNT, UNSPECI 07/02/2018 IBIS COBB MD, Ot E11.43 TYPE 2 [...] NICOTINE DEPENDENCE, UNSPECIFIED, UNCOMP 07/02/2018 IBIS COBB MD, Ot F32.9 MAJOR DEPRESSIVE [...] PAIN 07/02/2018 IBIS COBB MD, Ot Z79.01 LONG-TERM (CURRENT) USE OF ANTICOAGULANT 07/02/2018 IBIS COBB MD, Ot Z79.84 LONG-TERM (CURRENT) USE OF ORAL HYPOGLYC 07/02/2018 IBIS COBB MD, Ot Z86.711 PERSONAL HISTORY OF PULMONARY EMBOLISM 07/02/2018 IBIS COBB MD, Ot Z86.73 PRSNL HX OF TIA (TIA), AND CEREB INFRC W 07/02/2018 IBIS COBB MD, Ot Z88.8 ALLERGY STATUS TO OT DRUG/MEDS/BIOL SUB 07/03/2018 IBIS COBB MD, Ot [...] PAIN 07/03/2018 IBIS COBB MD, Ot Z79.01 LONG-TERM (CURRENT) USE OF ANTICOAGULANT 07/03/2018 IBIS COBB MD, Ot Z79.84 LONG-TERM (CURRENT) USE OF ORAL HYPOGLYC 07/03/2018 IBIS COBB MD, Ot Z86.711 PERSONAL HISTORY OF PULMONARY EMBOLISM 07/03/2018 IBIS COBB MD, Ot Z86.73 PRSNL HX OF TIA (TIA), AND CEREB INFRC W 07/03/2018 IBIS COBB MD, Ot Z88.8 ALLERGY STATUS TO [facility] DRUG/MEDS/BIOL SUB 07/09/2018 IBIS COBB MD, Ot [...] MD, Ot F12.10 CANNABIS ABUSE, UNCOMPLICATED 07/09/2018 BRUEGGEMANN MD, IBIS T Ot F17.200 NICOTINE DEPENDENCE, UNSPECIFIED, UNCOMP 07/09/2018 [...] PAIN 07/09/2018 IBIS COBB MD, Ot Z79.01 [employer] (CURRENT) USE OF ANTICOAGULANT 07/09/2018 IBIS COBB MD Ot Z79.84 [employer] (CURRENT) USE OF ORAL HYPOGLYC 07/09/2018 IBIS COBB MD, Ot Z86.711 PERSONAL HISTORY OF PULMONARY EMBOLISM 07/09/2018 IBIS COBB MD, Ot Z86.73 PRSNL HX OF TIA (TIA), AND CEREB INFRC W 07/09/2018 IBIS COBB MD, Ot Z88.8 ALLERGY STATUS TO [facility] DRUG/MEDS/BIOL SUB 2018 WILIAM DELGADO MD Ot A41. 9 SEPSIS, UNSPECIFIED ORGANISM 2018 DANNY LLAMAS, WILIAM Malone Ot D64. 9 ANEMIA, UNSPECIFIED 2018 DANNY LLAMAS, WILIAM Malone Ot E11. 43 TYPE 2 DIABETES W DIABETIC AUTONOMIC (PO 2018 WILIAM DELGADO MD Ot E66. 01 MORBID (SEVERE) OBESITY DUE TO EXCESS CA 2018 DANNY LLAMAS, WILIAM Malone Ot E78. 00 PURE HYPERCHOLESTEROLEMIA, UNSPECIFIED 2018 WILIAM DELGADO MD Ot F12. 10 CANNABIS ABUSE, UNCOMPLICATED 2018 WILIAM DELGADO MD Ot F17.200 NICOTINE DEPENDENCE, UNSPECIFIED, UNCOMP 2018 WILIAM DELGADO MD Ot F32. 9 MAJOR DEPRESSIVE DISORDER, SINGLE EPISOD 2018 WILIAM DELGADO MD, Ot F41. 9 ANXIETY DISORDER, UNSPECIFIED 2018 WILIAM DELGADO MD Ot F42. 9 OBSESSIVE-COMPULSIVE DISORDER, UNSPECIFI 2018 WILIAM DELGADO MD Ot F91. 3 OPPOSITIONAL DEFIANT DISORDER 2018 WILIAM DELGADO MD Ot I10 ESSENTIAL (PRIMARY) HYPERTENSION 2018 WILIAM DELGADO MD Ot K21. 9 GASTRO-ESOPHAGEAL REFLUX DISEASE WITHOUT 2018 WILIAM DELGADO MD Ot K31. 84 GASTROPARESIS 2018 WILIAM DELGADO MD Ot R10. 12 LEFT UPPER QUADRANT PAIN 2018 WILIAM DELGADO MD Ot R65. 20 SEVERE SEPSIS WITHOUT SEPTIC SHOCK 2018 WILIAM DELGADO MD Ot Z68. 44 BODY MASS INDEX (BMI) 60.0-69.9, ADULT 2018 WILIAM DELGADO MD Ot Z79. 01 LONG-TERM (CURRENT) USE OF ANTICOAGULANT 2018 WILIAM DELGADO MD Ot Z86.711 PERSONAL HISTORY OF PULMONARY EMBOLISM 2018 WILIAM DELGADO MD, Ot Z86. 73 PRSNL HX OF TIA (TIA), AND CEREB INFRC W 2018 WILIAM DELGADO MD Ot Z87. 19 PERSONAL HISTORY OF OTHER DISEASES OF TH 2018 WILIAM DELGADO MD Ot Z87.448 PERSONAL HISTORY OF OTHER DISEASES OF UR 2018 WILIAM DELGADO MD Ot Z88. 8 ALLERGY STATUS TO [facility] DRUG/MEDS/BIOL SUB 2018 WILIAM DELGADO MD Ot Z90. 89 ACQUIRED ABSENCE OF OTHER ORGANS 07/23/2018 WILIAM DELGADO MD Ot A41. 9 SEPSIS, UNSPECIFIED ORGANISM 07/23/2018 WILIAM DELGADO MD Ot D64. 9 ANEMIA, UNSPECIFIED 07/23/2018 WILIAM DELGADO MD Ot E11. 43 TYPE 2 DIABETES W DIABETIC AUTONOMIC (PO 07/23/2018 WILIAM DELGADO MD Ot E66. 01 MORBID (SEVERE) OBESITY DUE TO EXCESS CA 07/23/2018 WILIAM DELGADO MD Ot E78. 00 PURE HYPERCHOLESTEROLEMIA, UNSPECIFIED 07/23/2018 WILIAM DELGADO MD Ot F12. 10 CANNABIS ABUSE, UNCOMPLICATED 07/23/2018 WILIAM DELGADO MD Ot F17.200 NICOTINE DEPENDENCE, UNSPECIFIED, UNCOMP 07/23/2018 WILIAM DELGADO MD Ot F32. 9 MAJOR DEPRESSIVE DISORDER, SINGLE EPISOD 07/23/2018 WILIAM DELGADO MD Ot F41. 9 ANXIETY DISORDER, UNSPECIFIED 07/23/2018 WILIAM DELGADO MD Ot F42. 9 OBSESSIVE-COMPULSIVE DISORDER, UNSPECIFI 07/23/2018 WILIAM DELGADO MD Ot F91. 3 OPPOSITIONAL DEFIANT DISORDER 07/23/2018 WILIAM DELGADO MD Ot I10 ESSENTIAL (PRIMARY) HYPERTENSION 07/23/2018 WILIAM DELGADO MD Ot K21. 9 GASTRO-ESOPHAGEAL REFLUX DISEASE WITHOUT 07/23/2018 WILIAM DELGADO MD Ot K31. 84 GASTROPARESIS 07/23/2018 WILIAM DELGADO MD Ot R10. 12 LEFT UPPER QUADRANT PAIN 07/23/2018 WILIAM DELGADO MD Ot R65. 20 SEVERE SEPSIS WITHOUT SEPTIC SHOCK 07/23/2018 WILIAM DELGADO MD Ot Z68. 44 BODY MASS INDEX (BMI) 60.0-69.9, ADULT 07/23/2018 WILIAM DELGADO MD Ot Z79. 01 LONG-TERM (CURRENT) USE OF ANTICOAGULANT 07/23/2018 WILIAM DELGADO MD Ot Z86.711 PERSONAL HISTORY OF PULMONARY EMBOLISM 07/23/2018 WILIAM DELGADO MD Ot Z86. 73 PRSNL HX OF TIA (TIA), AND CEREB INFRC W 07/23/2018 WILIAM DELGADO MD Ot Z87. 19 PERSONAL HISTORY OF OTHER DISEASES OF TH 07/23/2018 WILIAM DELGADO MD Ot Z87.448 PERSONAL HISTORY OF OTHER DISEASES OF UR 07/23/2018 WILIAM DELGADO MD Ot Z88. 8 ALLERGY STATUS TO [facility] DRUG/MEDS/BIOL SUB 07/23/2018 WILIAM DELGADO MD Ot Z90. 89 ACQUIRED ABSENCE OF OTHER ORGANS 09/04/2018 JORGE THORNTON APRN Ot D64 .9 ANEMIA, UNSPECIFIED 09/04/2018 JORGE THORNTON APRN Ot E11 .9 TYPE 2 DIABETES MELLITUS WITHOUT COMPLIC 09/04/2018 JORGE THORNTON APRN Ot E66 .9 OBESITY, UNSPECIFIED 09/04/2018 JORGE THORNTON APRN Ot E78.00 PURE HYPERCHOLESTEROLEMIA, UNSPECIFIED 09/04/2018 JORGE THORNTON APRN Ot F12.10 CANNABIS ABUSE, UNCOMPLICATED 09/04/2018 JORGE THORNTON APRN Ot F32 .9 MAJOR DEPRESSIVE DISORDER, SINGLE EPISOD 09/04/2018 JORGE THORNTON APRN Ot F41 .9 ANXIETY DISORDER, UNSPECIFIED 09/04/2018 JORGE THORNTON APRN Ot F42 .9 OBSESSIVE-COMPULSIVE DISORDER, UNSPECIFI 09/04/2018 JORGE THORNTON APRN Ot F91 .3 OPPOSITIONAL DEFIANT DISORDER 09/04/2018 JORGE THORNTON APRN Ot G25.81 RESTLESS LEGS SYNDROME 09/04/2018 JORGE THORNTON APRN Ot I10 ESSENTIAL (PRIMARY) HYPERTENSION 09/04/2018 JORGE THORNTON APRN Ot K21 .9 GASTRO-ESOPHAGEAL REFLUX DISEASE WITHOUT 09/04/2018 JORGE THORNTON APRN Ot M79 .7 FIBROMYALGIA 09/04/2018 JORGE THORNTON APRN Ot N39 .0 URINARY TRACT INFECTION, SITE NOT SPECIF 09/04/2018 JORGE THORNTON APRN Ot R11 .2 NAUSEA WITH VOMITING, UNSPECIFIED 09/04/2018 JORGE THORNTON APRN Ot Z68.44 BODY MASS INDEX (BMI) 60.0-69.9, ADULT 09/04/2018 JORGE THORNTON APRN Ot Z79.01 [employer] (CURRENT) USE OF ANTICOAGULANT 09/04/2018 JORGE THORNTON APRN Ot Z86.711 PERSONAL HISTORY OF PULMONARY EMBOLISM 09/04/2018 JORGE THORNTON APRN Ot Z86.73 PRSNL HX OF TIA (TIA), AND CEREB INFRC W 09/04/2018 JORGE THORNTON APRN Ot Z87.19 PERSONAL HISTORY OF OTHER DISEASES OF TH 09/04/2018 JORGE THORNTON APRN Ot Z87.448 PERSONAL HISTORY OF OTHER DISEASES OF UR 09/04/2018 JORGE THORNTON APRN Ot Z88 .8 ALLERGY STATUS TO OT DRUG/MEDS/BIOL SUB 09/08/2018 JORGE THORNTON APRN Ot D64 .9 ANEMIA, UNSPECIFIED 09/08/2018 JORGE THORNTON APRN Ot E11 .9 TYPE 2 DIABETES MELLITUS WITHOUT COMPLIC 09/08/2018 JORGE THORNTON APRN Ot E66 .9 OBESITY, UNSPECIFIED 09/08/2018 JORGE THORNTON APRN Ot E78.00 PURE HYPERCHOLESTEROLEMIA, UNSPECIFIED 09/08/2018 JORGE THORNTON APRN Ot F12.10 CANNABIS ABUSE, UNCOMPLICATED 09/08/2018 JORGE THORNTON APRN Ot F32 .9 MAJOR DEPRESSIVE DISORDER, SINGLE EPISOD 09/08/2018 JORGE THORNTON APRN Ot F41 .9 ANXIETY DISORDER, UNSPECIFIED 09/08/2018 JORGE THORNTON APRN Ot F42 .9 OBSESSIVE-COMPULSIVE DISORDER, UNSPECIFI 09/08/2018 JORGE THORNTON APRN Ot F91 .3 OPPOSITIONAL DEFIANT DISORDER 09/08/2018 JORGE THORNTON APRN Ot G25.81 RESTLESS LEGS SYNDROME 09/08/2018 JORGE THORNTON APRN Ot I10 ESSENTIAL (PRIMARY) HYPERTENSION 09/08/2018 JORGE THORNTON APRN Ot K21 .9 GASTRO-ESOPHAGEAL REFLUX DISEASE WITHOUT 09/08/2018 JORGE THORNTON APRN Ot M79 .7 FIBROMYALGIA 09/08/2018 JORGE THORNTON APRN Ot N39 .0 URINARY TRACT INFECTION, SITE NOT SPECIF 09/08/2018 JORGE THORNTON APRN Ot R11 .2 NAUSEA WITH VOMITING, UNSPECIFIED 09/08/2018 JORGE THORNTON APRN Ot Z68.44 BODY MASS INDEX (BMI) 60.0-69.9, ADULT 09/08/2018 JORGE THORNTON APRN Ot Z79.01 LONG-TERM (CURRENT) USE OF ANTICOAGULANT 09/08/2018 JORGE THORNTON APRN Ot Z86.711 PERSONAL HISTORY OF PULMONARY EMBOLISM 09/08/2018 JORGE THORNTON APRN Ot Z86.73 PRSNL HX OF TIA (TIA), AND CEREB INFRC W 09/08/2018 JORGE THORNTON APRN Ot Z87.19 PERSONAL HISTORY OF OTHER DISEASES OF TH 09/08/2018 JORGE THORNTON APRN Ot Z87.448 PERSONAL HISTORY OF OTHER DISEASES OF UR 09/08/2018 JORGE THORNTON APRN Ot Z88 .8 ALLERGY STATUS TO OTH DRUG/MEDS/BIOL SUB 11/05/2018 NIKOLAY DOUGHERTY MUNA Tomasa Ot D64.9 ANEMIA, UNSPECIFIED 11/05/2018 NIKOLAY MUNA DOUGHERTY Ot E11.43 TYPE 2 DIABETES W DIABETIC AUTONOMIC (PO 11/05/2018 NIKOLAY DO MUNA Tomasa Ot E66.01 MORBID (SEVERE) OBESITY DUE TO EXCESS CA 11/05/2018 MUNA LINK DO Ot E78.00 PURE HYPERCHOLESTEROLEMIA, UNSPECIFIED 11/05/2018 NIKOLAY MUNA DOUGHERTY Ot F11.90 OPIOID USE, UNSPECIFIED, UNCOMPLICATED 11/05/2018 NIKOLAY MUNA DOUGHERTY Ot F12.10 CANNABIS ABUSE, UNCOMPLICATED 11/05/2018 NIKOLAY MUNA DOUGHERTY Ot F17.210 NICOTINE DEPENDENCE, CIGARETTES, UNCOMPL 11/05/2018 NIKOLAY MUNA DOUGHERTY Ot F32.9 MAJOR DEPRESSIVE DISORDER, SINGLE EPISOD 11/05/2018 NIKOLAY MUNA DOUGHERTY Ot F41.9 ANXIETY DISORDER, UNSPECIFIED 11/05/2018 NIKOLAY MUNA DOUGHERTY Ot F91.3 OPPOSITIONAL DEFIANT DISORDER 11/05/2018 NIKOLAY DO MUNA K Ot I10 ESSENTIAL (PRIMARY) HYPERTENSION 11/05/2018 NIKOLAY MUNA DOUGHERTY Ot K21.9 GASTRO-ESOPHAGEAL REFLUX DISEASE WITHOUT 11/05/2018 NIKOLAY MUNA DOUGHERTY Ot K31.84 GASTROPARESIS 11/05/2018 NIKOLAY DO MUNA K Ot N39.0 URINARY TRACT INFECTION, SITE NOT SPECIF 11/05/2018 MUNA LINK DO Ot R10.2 PELVIC AND PERINEAL PAIN 11/05/2018 NIKOLAY MUNA DOUGHERTY Ot Z68.44 BODY MASS INDEX (BMI) 60.0-69.9, ADULT 11/05/2018 NIKOLAY DO MUNA K Ot Z79.01 [employer] (CURRENT) USE OF ANTICOAGULANT 11/05/2018 MUNA LINK DO Ot Z86.711 PERSONAL HISTORY OF PULMONARY EMBOLISM 11/05/2018 NIKOLAY MUNA DOUGHERTY Ot Z86.73 PRSNL HX OF TIA (TIA), AND CEREB INFRC W 11/05/2018 MUNA LINK DO Ot Z87.19 PERSONAL HISTORY OF OTHER DISEASES OF TH 11/05/2018 MUNA LINK DO Ot Z87.448 PERSONAL HISTORY OF OTHER DISEASES OF UR 11/05/2018 NIKOLAYMUNA Mason DO Ot Z88.8 ALLERGY STATUS TO [facility]TH DRUG/MEDS/BIOL SUB 11/07/2018 MUNA LINK DO Ot D64.9 ANEMIA, UNSPECIFIED 11/07/2018 MUNA LINK DO Ot E11.43 TYPE 2 DIABETES W DIABETIC AUTONOMIC (PO 11/07/2018 MUNA LINK DO Ot E66.01 MORBID (SEVERE) OBESITY DUE TO EXCESS CA 11/07/2018 MUNA LINK DO Ot E78.00 PURE HYPERCHOLESTEROLEMIA, UNSPECIFIED 11/07/2018 NIKOLAY MUNA DOUGHERTY Ot F11.90 OPIOID USE, UNSPECIFIED, UNCOMPLICATED 11/07/2018 MUNA LINK DO Ot F12.10 CANNABIS ABUSE, UNCOMPLICATED 11/07/2018 NIKOLAY MUNA DOUGHERTY Ot F17.210 NICOTINE DEPENDENCE, CIGARETTES, UNCOMPL 11/07/2018 MUNA LINK DO Ot F32.9 MAJOR DEPRESSIVE DISORDER, SINGLE EPISOD 11/07/2018 NIKOLAY MUNA DOUGHERTY Ot F41.9 ANXIETY DISORDER, UNSPECIFIED 11/07/2018 NIKOLAY MUNA DOUGHERTY Ot F91.3 OPPOSITIONAL DEFIANT DISORDER 11/07/2018 MUNA LINK DO Ot I10 ESSENTIAL (PRIMARY) HYPERTENSION 11/07/2018 MUNA LINK DO Ot K21.9 GASTRO-ESOPHAGEAL REFLUX DISEASE WITHOUT 11/07/2018 NIKOLAY MUNA DOUGHERTY Ot K31.84 GASTROPARESIS 11/07/2018 MUNA LINK DO Ot N39.0 URINARY TRACT INFECTION, SITE NOT SPECIF 11/07/2018 MUNA ILNK DO Ot R10.2 PELVIC AND PERINEAL PAIN 11/07/2018 NIKOLAY MUNA DOUGHERTY Ot Z68.44 BODY MASS INDEX (BMI) 60.0-69.9, ADULT 11/07/2018 MUNA LINK DO Ot Z79.01 LONG-TERM (CURRENT) USE OF ANTICOAGULANT 11/07/2018 MUNA LINK DO Ot Z86.711 PERSONAL HISTORY OF PULMONARY EMBOLISM 11/07/2018 MUNA LINK DO Ot Z86.73 PRSNL HX OF TIA (TIA), AND CEREB INFRC W 11/07/2018 MUNA LINK DO Ot Z87.19 PERSONAL HISTORY OF OTHER DISEASES OF TH 11/07/2018 MUNA LINK DO Ot Z87.448 PERSONAL HISTORY OF OTHER DISEASES OF UR 11/07/2018 NIKOLAYMUNA Mason DO Tomasa Ot Z88.8 ALLERGY STATUS TO OTH DRUG/MEDS/BIOL SUB 02/24/2019 HILARY VALDEZ MD, Ot D64.9 ANEMIA, UNSPECIFIED 02/24/2019 HILARY VALDEZ MD, Ot E11.9 TYPE 2 DIABETES MELLITUS WITHOUT COMPLIC 02/24/2019 HILARY VALDEZ MD, Ot E66.0 1 MORBID (SEVERE) OBESITY DUE TO EXCESS CA 02/24/2019 HILARY VALDEZ MD, Ot E78.0 0 PURE HYPERCHOLESTEROLEMIA, UNSPECIFIED 02/24/2019 HILARY VALDEZ MD, Ot F32.9 MAJOR DEPRESSIVE DISORDER, SINGLE EPISOD 02/24/2019 HILARY VALDEZ MD, Ot F41.9 ANXIETY DISORDER, UNSPECIFIED 02/24/2019 HILARY VALDEZ MD, Ot F42.9 OBSESSIVE-COMPULSIVE DISORDER, UNSPECIFI 02/24/2019 HILARY VALDEZ MD, Ot F91.3 OPPOSITIONAL DEFIANT DISORDER 02/24/2019 HILARY VALDEZ MD, Ot I10 ESSENTIAL (PRIMARY) HYPERTENSION 02/24/2019 HILARY VALDEZ MD, Ot K21.9 GASTRO-ESOPHAGEAL REFLUX DISEASE WITHOUT 02/24/2019 HILARY VALDEZ MD, Ot M79.7 FIBROMYALGIA 02/24/2019 HILARY VALDEZ MD, Ot R10.1 3 EPIGASTRIC PAIN 02/24/2019 HILARY VALDEZ MD, Ot Z68.4 4 BODY MASS INDEX (BMI) 60.0-69.9, ADULT 02/24/2019 HILARY VALDEZ MD, Ot Z79.0 1 [employer] (CURRENT) USE OF ANTICOAGULANT 02/24/2019 HILARY VALDEZ MD, Ot Z79.8 4 LONG-TERM (CURRENT) USE OF ORAL HYPOGLYC 02/24/2019 HILARY VALDEZ MD, Ot Z86.7 11 PERSONAL HISTORY OF PULMONARY EMBOLISM 02/24/2019 HILARY VALDEZ MD, Ot Z86.7 3 PRSNL HX OF TIA (TIA), AND CEREB INFRC W 02/24/2019 HILARY VALDEZ MD, Ot Z88.8 ALLERGY STATUS TO OTH DRUG/MEDS/BIOL SUB 02/24/2019 HILARY VALDEZ MD, Ot Z91.5 PERSONAL HISTORY OF SELF-HARM 02/26/2019 HILARY VALDEZ MD, Ot D64.9 ANEMIA, UNSPECIFIED 02/26/2019 HILARY VALDEZ MD, Ot E11.9 TYPE 2 DIABETES MELLITUS WITHOUT COMPLIC 02/26/2019 HILARY VALDEZ MD, Ot E66.0 1 MORBID (SEVERE) OBESITY DUE TO EXCESS CA 02/26/2019 HILARY VALDEZ MD, Ot E78.0 0 PURE HYPERCHOLESTEROLEMIA, UNSPECIFIED 02/26/2019 HILARY VALDEZ MD, Ot F32.9 MAJOR DEPRESSIVE DISORDER, SINGLE EPISOD 02/26/2019 HILARY VALDEZ MD, Ot F41.9 ANXIETY DISORDER, UNSPECIFIED 02/26/2019 HILARY VALDEZ MD, Ot F42.9 OBSESSIVE-COMPULSIVE DISORDER, UNSPECIFI 02/26/2019 HILARY VALDEZ MD, Ot F91.3 OPPOSITIONAL DEFIANT DISORDER 02/26/2019 HILARY VALDEZ MD, Ot I10 ESSENTIAL (PRIMARY) HYPERTENSION 02/26/2019 HILARY VALDEZ MD, Ot K21.9 GASTRO-ESOPHAGEAL REFLUX DISEASE WITHOUT 02/26/2019 HILARY VALDEZ MD Ot M79.7 FIBROMYALGIA 02/26/2019 HILARY VALDEZ MD, Ot R10.1 3 EPIGASTRIC PAIN 02/26/2019 HILARY VALDEZ MD, Ot Z68.4 4 BODY MASS INDEX (BMI) 60.0-69.9, ADULT 02/26/2019 HILARY VALDEZ MD, Ot Z79.0 1 [employer] (CURRENT) USE OF ANTICOAGULANT 02/26/2019 HILARY VALDEZ MD, Ot Z79.8 4 LONG-TERM (CURRENT) USE OF ORAL HYPOGLYC 02/26/2019 HILARY VALDEZ MD, Ot Z86.7 11 PERSONAL HISTORY OF PULMONARY EMBOLISM 02/26/2019 HILARY VALDEZ MD, Ot Z86.7 3 PRSNL HX OF TIA (TIA), AND CEREB INFRC W 02/26/2019 HILARY VALDEZ MD, Ot Z88.8 ALLERGY STATUS TO OTH DRUG/MEDS/BIOL SUB 02/26/2019 HILARY VALDEZ MD, Ot Z91.5 PERSONAL HISTORY OF SELF-HARM 03/11/2019 HILARY VALDEZ MD, Ot D64.9 ANEMIA, UNSPECIFIED 03/11/2019 HILARY VALDEZ MD, Ot E11.9 TYPE 2 DIABETES MELLITUS WITHOUT COMPLIC 03/11/2019 HILARY VALDEZ MD, Ot E66.0 1 MORBID (SEVERE) OBESITY DUE TO EXCESS CA 03/11/2019 HILARY VALDEZ MD, Ot E78.0 0 PURE HYPERCHOLESTEROLEMIA, UNSPECIFIED 03/11/2019 HILARY VALDEZ MD, Ot F17.2 10 NICOTINE DEPENDENCE, CIGARETTES, UNCOMPL 03/11/2019 HILARY VALDEZ MD, Ot F32.9 MAJOR DEPRESSIVE DISORDER, SINGLE EPISOD 03/11/2019 HILARY VALDEZ MD, Ot F41.9 ANXIETY DISORDER, UNSPECIFIED 03/11/2019 HILARY VALDEZ MD, Ot F91.3 OPPOSITIONAL DEFIANT DISORDER 03/11/2019 HILARY VALDEZ MD, Ot G89.2 9 OTHER CHRONIC PAIN 03/11/2019 HILARY VALDEZ MD, Ot I10 ESSENTIAL (PRIMARY) HYPERTENSION 03/11/2019 HILARY VALDEZ MD, Ot K21.9 GASTRO-ESOPHAGEAL REFLUX DISEASE WITHOUT 03/11/2019 HILARY VALDEZ MD, Ot K29.5 0 UNSPECIFIED CHRONIC GASTRITIS WITHOUT BL 03/11/2019 HILARY VALDEZ MD, Ot M79.7 FIBROMYALGIA 03/11/2019 HILARY VALDEZ MD, Ot R10.9 UNSPECIFIED ABDOMINAL PAIN 03/11/2019 HILARY VALDEZ MD, Ot Z68.4 4 BODY MASS INDEX (BMI) 60.0-69.9, ADULT 03/11/2019 HILARY VALDEZ MD, Ot Z79.0 1 C[employer] AT [employer] (CURRENT) USE OF ANTICOAGULANT 03/11/2019 HILARY VALDEZ MD, Ot Z79.8 4 [employer] (CURRENT) USE OF ORAL HYPOGLYC 03/11/2019 HILARY VALDEZ MD, Ot Z86.7 11 PERSONAL HISTORY OF PULMONARY EMBOLISM 03/11/2019 HILARY VALDEZ MD, Ot Z86.7 3 PRSNL HX OF TIA (TIA), AND CEREB INFRC W 03/11/2019 HILARY VALDEZ MD, Ot Z88.8 ALLERGY STATUS TO OTH DRUG/MEDS/BIOL SUB 03/16/2019 HILARY VALDEZ MD, Ot D64.9 ANEMIA, UNSPECIFIED 03/16/2019 HILARY VALDEZ MD, Ot E11.9 TYPE 2 DIABETES MELLITUS WITHOUT COMPLIC 03/16/2019 HILARY VALDEZ MD, Ot E66.0 1 MORBID (SEVERE) OBESITY DUE TO EXCESS CA 03/16/2019 HILARY VALDEZ MD, Ot E78.0 0 PURE HYPERCHOLESTEROLEMIA, UNSPECIFIED 03/16/2019 HILARY VALDEZ MD, Ot F17.2 10 NICOTINE DEPENDENCE, CIGARETTES, UNCOMPL 03/16/2019 HILARY VALDEZ MD, Ot F32.9 MAJOR DEPRESSIVE DISORDER, SINGLE EPISOD 03/16/2019 HILARY VALDEZ MD, Ot F41.9 ANXIETY DISORDER, UNSPECIFIED 03/16/2019 HILARY VALDEZ MD, Ot F91.3 OPPOSITIONAL DEFIANT DISORDER 03/16/2019 HILARY VALDEZ MD, Ot G89.2 9 OTHER CHRONIC PAIN 03/16/2019 HILARY VALDEZ MD, Ot I10 ESSENTIAL (PRIMARY) HYPERTENSION 03/16/2019 HILARY VALDEZ MD, Ot K21.9 GASTRO-ESOPHAGEAL REFLUX DISEASE WITHOUT 03/16/2019 HILARY VALDEZ MD, Ot K29.5 0 UNSPECIFIED CHRONIC GASTRITIS WITHOUT BL 03/16/2019 HILARY VALDEZ MD, Ot M79.7 FIBROMYALGIA 03/16/2019 HILARY VALDEZ MD, Ot R10.9 UNSPECIFIED ABDOMINAL PAIN 03/16/2019 HILARY VALDEZ MD, Ot Z68.4 4 BODY MASS INDEX (BMI) 60.0-69.9, ADULT 03/16/2019 HILARY VALDEZ MD, Ot Z79.0 1 C[employer] AT [employer] (CURRENT) USE OF ANTICOAGULANT 03/16/2019 HILARY VALDEZ MD, Ot Z79.8 4 LONG-TERM (CURRENT) USE OF ORAL HYPOGLYC 03/16/2019 HILARY VALDEZ MD, Ot Z86.7 11 PERSONAL HISTORY OF PULMONARY EMBOLISM 03/16/2019 HILARY VALDEZ MD, Ot Z86.7 3 PRSNL HX OF TIA (TIA), AND CEREB INFRC W 03/16/2019 HILARY VALDEZ MD, Ot Z88.8 ALLERGY STATUS TO OTH DRUG/MEDS/BIOL SUB 03/19/2019 HILARY VALDEZ MD, Ot D64.9 ANEMIA, UNSPECIFIED 03/19/2019 HILARY VALDEZ MD, Ot E11.9 TYPE 2 DIABETES MELLITUS WITHOUT COMPLIC 03/19/2019 HILARY VALDEZ MD, Ot E66.0 1 MORBID (SEVERE) OBESITY DUE TO EXCESS CA 03/19/2019 HILARY VALDEZ MD, Ot E78.0 0 PURE HYPERCHOLESTEROLEMIA, UNSPECIFIED 03/19/2019 HILARY VALDEZ MD, Ot F17.2 10 NICOTINE DEPENDENCE, CIGARETTES, UNCOMPL 03/19/2019 HILARY VALDEZ MD, Ot F32.9 MAJOR DEPRESSIVE DISORDER, SINGLE EPISOD 03/19/2019 HILARY VALDEZ MD, Ot F41.9 ANXIETY DISORDER, UNSPECIFIED 03/19/2019 HILARY VALDEZ MD, Ot F91.3 OPPOSITIONAL DEFIANT DISORDER 03/19/2019 HILARY VALDEZ MD, Ot G89.2 9 OTHER CHRONIC PAIN 03/19/2019 HILARY VALDEZ MD, Ot I10 ESSENTIAL (PRIMARY) HYPERTENSION 03/19/2019 HILARY VALDEZ MD, Ot K21.9 GASTRO-ESOPHAGEAL REFLUX DISEASE WITHOUT 03/19/2019 HILARY VALDEZ MD, Ot K29.5 0 UNSPECIFIED CHRONIC GASTRITIS WITHOUT BL 03/19/2019 HILARY VALDEZ MD, Ot M79.7 FIBROMYALGIA 03/19/2019 HILARY VALDEZ MD, Ot R10.9 UNSPECIFIED ABDOMINAL PAIN 03/19/2019 HILARY VALDEZ MD, Ot Z68.4 4 BODY MASS INDEX (BMI) 60.0-69.9, ADULT 03/19/2019 HILARY VALDEZ MD, Ot Z79.0 1 LONG-TERM (CURRENT) USE OF ANTICOAGULANT 03/19/2019 HILARY VALDEZ MD, Ot Z79.8 4 C[employer] AT [employer] (CURRENT) USE OF ORAL HYPOGLYC 03/19/2019 HILARY VALDEZ MD, Ot Z86.7 11 PERSONAL HISTORY OF PULMONARY EMBOLISM 03/19/2019 HILARY VALDEZ MD, Ot Z86.7 3 PRSNL HX OF TIA (TIA), AND CEREB INFRC W 03/19/2019 HILARY VALDEZ MD, Ot Z88.8 ALLERGY STATUS TO OT DRUG/MEDS/BIOL SUB Procedures There is no data. Results Test Result Range Complete blood count (CBC) with automate d white blood cell (WBC) differential - 05/26/18 11:38 Blood leukocytes automated count (number/volume) 9.4 10*3/uL 4.3-11.0 Blood erythrocytes automated count (number/volume) 5.31 10*6/uL 4.35-5.85 Venous blood hemoglobin measurement (mass/volume) 13.1 g/dL 11.5-16.0 Blood hematocrit (volume fraction) 41 % 35-52 Automated erythrocyte mean corpuscular volume 76 [ foz_us] 80-99 Automated erythrocyte mean corpuscular h emoglobin (mass per erythrocyte) 25 pg 25-34 Automated erythrocyte mean corpuscular h emoglobin concentration measurement (mass/volume) 32 g/dL 32-36 Automated erythrocyte distribution width ratio 18. 5 % 10.0- 14.5 Automated blood platelet count [...] 10*3 1.0-4.0 Blood monocytes automated count (number/volume) 0. 5 10*3 0.0-1.0 Automated eosinophil count 0.4 10*3/uL 0 .0-0.3 Automated blood basophil count (count/volume) 0.0 10*3/uL 0.0-0.1 Comprehensive metabolic panel - 05/26/18 11:38 Serum or plasma sodium measurement (moles/volume) 142 mmol/L 135-145 Serum or plasma potassium measurement (moles/volume) 3.9 mmol/L 3.6-5.0 Serum or plasma chloride measurement (moles/volume) 105 mmol/L 98-107 Carbon dioxide 25 mmol/L 21-32 Serum or plasma anion gap determination (moles/volume) 12 mmol/L 5-14 Serum or plasma urea nitrogen measurement (mass/volume ) 14 mg/dL 7-18 Serum or plasma creatinine measurement (mass/volume) 0.97 mg/dL 0.60-1.30 Serum or plasma urea nitrogen/creatinine mass ratio 14 NRG Serum or plasma creatinine measurement w ith calculation of estimated glomerular filtration rate > NRG Serum or plasma glucose measurement (mass/volume) 212 mg/dL 70-105 Serum or plasma calcium measurement (mass/volume) 8.9 mg/dL 8.5-10.1 Serum or plasma total bilirubin measurement (mass/volu me) 0.5 mg/dL 0.1-1.0 Serum or plasma alkaline phosphatase shady surement (enzymatic activity/volume) 67 U/L 40-136 Serum or plasma aspartate aminotransfera se measurement (enzymatic activity/volume) 14 U/L 5-34 Serum or plasma alanine aminotransferase measurement (enzymatic activity/volume) 17 U/L 0-55 Serum or plasma protein measurement (mass/volume) 6.9 g/dL 6.4-8.2 Serum or plasma albumin measurement (mass/volume) 3.9 g/dL 3.2-4.5 CALCIUM CORRECTED 9.0 mg/dL 8.5-10.1 Magnesium - 05/26/18 11:38 Magnesium 1.8 mg/dL 1.8-2.4 Serum or plasma troponin i.cardiac measu rement (mass/volume) - 05/26/18 11:38 Serum or plasma troponin i.cardiac measurement (mass/v olume) < ng/mL <0.30 PT panel in platelet poor plasma by coag ulation assay - 05/26/18 11:38 Prothrombin time (PT) in platelet poor plasma by coagu lation assay 13.0 s 12.2-14.7 INR in platelet poor plasma or blood by coagulation as say 1.0 0.8-1.4 Activated partial thromboplastin time (a PTT) in platelet poor plasma bycoagulation assay - 05/26/18 11:38 Activated partial thromboplastin time (a PTT) in platelet poor plasma bycoagulation assay 25 s 24-35 Myoglobin, serum - 05/26/18 11:38 Myoglobin, serum 63.1 ng/mL 10.0-92.0 Serum or plasma troponin i.cardiac measu rement (mass/volume) - 05/26/18 13:13 Serum or plasma troponin i.cardiac measurement (mass/v olume) < ng/mL <0.30 Complete blood count (CBC) with automate d white blood cell (WBC) differential - 06/03/18 10:15 Blood leukocytes automated count (number/volume) 12.5 10*3/uL 4.3-11.0 Blood erythrocytes automated count (number/volume) 6.00 10*6/uL 4.35-5.85 Venous blood hemoglobin measurement (mass/volume) 14.4 g/dL 11.5-16.0 Blood hematocrit (volume fraction) 45 % 35-52 Automated erythrocyte mean corpuscular volume 74 [ foz_us] 80-99 Automated erythrocyte mean corpuscular h emoglobin (mass per erythrocyte) 24 pg 25-34 Automated erythrocyte mean corpuscular h emoglobin concentration measurement (mass/volume) 32 g/dL 32-36 Automated erythrocyte distribution width ratio 19. 1 % 10.0- 14.5 Automated blood platelet count [...] 10*3 1.0-4.0 Blood monocytes automated count (number/volume) 0. 6 10*3 0.0-1.0 Automated eosinophil count 0.4 10*3/uL 0 .0-0.3 Automated blood basophil count (count/volume) 0.0 10*3/uL 0.0-0.1 Serum or plasma choriogonadotropin (preg rosa test) detection - 06/03/18 10:15 Serum or plasma choriogonadotropin ( test) de tection NEGATIVE NEGATIVE PT panel in platelet poor plasma by coag ulation assay - 06/03/18 10:15 Prothrombin time (PT) in platelet poor plasma by coagu lation assay 15.5 s 12.2-14.7 INR in platelet poor plasma or blood by coagulation as say 1.2 0.8-1.4 Comprehensive metabolic panel - 06/03/18 10:15 Serum or plasma sodium measurement (moles/volume) 141 mmol/L 135-145 Serum or plasma potassium measurement (moles/volume) 4.1 mmol/L 3.6-5.0 Serum or plasma chloride measurement (moles/volume) 108 mmol/L 98-107 Carbon dioxide 20 mmol/L 21-32 Serum or plasma anion gap determination (moles/volume) 13 mmol/L 5-14 Serum or plasma urea nitrogen measurement (mass/volume ) 15 mg/dL 7-18 Serum or plasma creatinine measurement (mass/volume) 0.79 mg/dL 0.60-1.30 Serum or plasma urea nitrogen/creatinine mass ratio 19 NRG Serum or plasma creatinine measurement w ith calculation of estimated glomerular filtration rate > NRG Serum or plasma glucose measurement (mass/volume) 236 mg/dL 70-105 Serum or plasma calcium measurement (mass/volume) 9.6 mg/dL 8.5-10.1 Serum or plasma total bilirubin measurement (mass/volu me) 0.9 mg/dL 0.1-1.0 Serum or plasma alkaline phosphatase shady surement (enzymatic activity/volume) 66 U/L 40-136 Serum or plasma aspartate aminotransfera se measurement (enzymatic activity/volume) 17 U/L 5-34 Serum or plasma alanine aminotransferase measurement (enzymatic activity/volume) 16 U/L 0-55 Serum or plasma protein measurement (mass/volume) 7.4 g/dL 6.4-8.2 Serum or plasma albumin measurement (mass/volume) 4.2 g/dL 3.2-4.5 CALCIUM CORRECTED 9.4 mg/dL 8.5-10.1 Lipase - 06/03/18 10:15 Lipase 6 U/L 8-78 Urine drug screening test - 06/03/18 11: 17 Urine phencyclidine detection by screening method NEGATIVE NEGATIVE Urine benzodiazepines detection by screening method POSITIVE NEGATIVE Urine cocaine detection NEGATIVE NEGATI VE Urine amphetamines detection by screening method N EGATIVE NEGATIVE Urine methamphetamine detection by screening method NEGATIVE NEGATIVE Urine cannabinoids detection by screening method P OSITIVE NEGATIVE Urine opiates detection by screening method NEGATI VE NEGATIVE Urine barbiturates detection NEGATIVE N EGATIVE Screening urine tricyclic antidepressants detection POSITIVE NEGATIVE Urine methadone detection by screening method NEGA TIVE NEGATIVE Urine oxycodone detection POSITIVE NEGA TIVE Urine propoxyphene detection NEGATIVE N EGATIVE Complete urinalysis with reflex to cultu re - 06/03/18 11:17 Urine color determination KELSEY NRG Urine clarity determination VERY CLOUDY NRG Urine pH measurement by test strip 6.5 5-9 Specific gravity of urine by test strip 1.020 1.016-1.022 Urine protein assay by test strip, semi-quantitative 2+ NEGATIVE Urine glucose detection by automated test strip 3+ NEGATIVE Erythrocytes detection in urine sediment by light micr oscopy 5+ NEGATIVE Urine ketones detection by automated test strip 1+ NEGATIVE Urine nitrite detection by test strip NEGATIVE NEGATIVE Urine total bilirubin detection by test strip NEGA TIVE NEGATIVE Urine urobilinogen measurement by automated test strip (mass/volume) 1 mg/dL NORMAL Urine leukocyte esterase detection by dipstick 1+ NEGATIVE Automated urine sediment erythrocyte cou nt by microscopy (number/high power field) > [HPF] NRG Automated urine sediment leukocyte count by microscopy (number/high power field) [HPF] NRG Bacteria detection in urine sediment by light microsco py FEW NRG Squamous epithelial cells detection in u rine sediment by light microscopy 5-10 NRG Crystals detection in urine sediment by light microsco py NONE NRG Casts detection in urine sediment [...] 5-14 Serum or plasma urea nitrogen measurement (mass/volume ) 17 mg/dL 7-18 Serum or plasma creatinine measurement (mass/volume) 0.97 mg/dL 0.60-1.30 Serum or plasma urea nitrogen/creatinine mass ratio 18 NRG Serum or plasma creatinine measurement w ith calculation of estimated glomerular filtration rate > NRG Serum or plasma glucose measurement (mass/volume) 300 mg/dL 70-105 Serum or plasma calcium measurement (mass/volume) 9.5 mg/dL 8.5-10.1 Serum or plasma total bilirubin measurement (mass/volu me) 0.6 mg/dL 0.1-1.0 Serum or plasma alkaline phosphatase shady surement (enzymatic activity/volume) 84 U/L 40-136 Serum or plasma aspartate aminotransfera se measurement (enzymatic activity/volume) 21 U/L 5-34 Serum or plasma alanine aminotransferase measurement (enzymatic activity/volume) 12 U/L 0-55 Serum or plasma protein measurement (mass/volume) 7.6 g/dL 6.4-8.2 Serum or plasma albumin measurement (mass/volume) 4.3 g/dL 3.2-4.5 CALCIUM CORRECTED 9.3 mg/dL 8.5-10.1 Magnesium - 07/01/18 00:00 Magnesium 1.7 mg/dL 1.8-2.4 Lipase - 07/01/18 00:00 Lipase 8 U/L 8-78 Serum or plasma choriogonadotropin (preg rosa test) detection - 07/01/18 00:00 Serum or plasma choriogonadotropin ( test) de tection NEGATIVE NEGATIVE Complete blood count (CBC) with automate d white blood cell (WBC) differential - 07/01/18 23:35 Blood leukocytes automated count (number/volume) 17.5 10*3/uL 4.3-11.0 Blood erythrocytes automated count (number/volume) 5.93 10*6/uL 4.35-5.85 Venous blood hemoglobin measurement (mass/volume) 14.3 g/dL 11.5-16.0 Blood hematocrit (volume fraction) 43 % 35-52 Automated erythrocyte mean corpuscular volume 72 [ foz_us] 80-99 Automated erythrocyte mean corpuscular h emoglobin (mass per erythrocyte) 24 pg 25-34 Automated erythrocyte mean corpuscular h emoglobin concentration measurement (mass/volume) 34 g/dL 32-36 Automated erythrocyte distribution width ratio 18. 3 % 10.0- 14.5 Automated blood platelet count [...] 10*3 1.0-4.0 Blood monocytes automated count (number/volume) 0. 3 10*3 0.0-1.0 Automated eosinophil count 0.0 10*3/uL 0 .0-0.3 Automated blood basophil count (count/volume) 0.0 10*3/uL 0.0-0.1 Blood manual differential performed dete ction - 07/01/18 23:35 Blood monocytes/100 leukocytes 1 % NRG Manual blood segmented neutrophils/100 leukocytes 95 % NRG Blood band neutrophils/100 leukocytes 0 % NRG Manual blood lymphocytes/100 leukocytes 4 % NRG Manual eosinophils/100 leukocytes in nose 0 % NRG Manual blood basophils/100 leukocytes 0 % NRG Blood anisocytosis detection by light microscopy S LIGHT NRG Complete urinalysis with reflex to cultu re - 07/02/18 00:52 Urine color determination YELLOW NRG Urine clarity determination SLIGHTLY CLOUDY NRG Urine pH measurement by test strip 5 5-9 Specific gravity of urine by test strip 1.025 1.016-1.022 Urine protein assay by test strip, semi-quantitative 3+ NEGATIVE Urine glucose detection by automated test strip 4+ NEGATIVE Erythrocytes detection in urine sediment by light micr oscopy 1+ NEGATIVE Urine ketones detection by automated test strip 2+ NEGATIVE Urine nitrite detection by test strip NEGATIVE NEGATIVE Urine total bilirubin detection by test strip NEGA TIVE NEGATIVE Urine urobilinogen measurement by automated test strip (mass/volume) NORMAL NORMAL Urine leukocyte esterase detection by dipstick 2+ NEGATIVE Automated urine sediment erythrocyte cou nt by microscopy (number/high power field) RARE NRG Automated urine sediment leukocyte count by microscopy (number/high power field) [HPF] NRG Bacteria detection in urine sediment by light microsco py MODERATE NRG Squamous epithelial cells detection in u rine sediment by light microscopy 25-50 NRG Crystals detection in urine sediment by light microsco py NONE NRG Casts detection in urine sediment by light microscopy PRESENT NRG Mucus detection in urine sediment by light microscopy LARGE NRG Complete urinalysis with reflex to culture YES NRG Hyaline casts detection in urine sediment by light gregorio roscopy 2-5 NRG Urine drug screening test - 07/02/18 00: 52 Urine phencyclidine detection by screening method NEGATIVE NEGATIVE Urine benzodiazepines detection by screening method POSITIVE NEGATIVE Urine cocaine detection NEGATIVE NEGATI VE Urine amphetamines detection by screening method N EGATIVE NEGATIVE Urine methamphetamine detection by screening method NEGATIVE NEGATIVE Urine cannabinoids detection by screening method P OSITIVE NEGATIVE Urine opiates detection by screening method POSITI VE NEGATIVE Urine barbiturates detection NEGATIVE N EGATIVE Screening urine tricyclic antidepressants detection POSITIVE NEGATIVE Urine methadone detection by screening method NEGA TIVE NEGATIVE Urine oxycodone detection POSITIVE NEGA TIVE Urine propoxyphene detection NEGATIVE N EGATIVE Bacterial urine culture - 07/02/18 00:52 Bacterial urine culture SEE COMMEN NRG COLONY COUNT . NRG Capillary blood glucose measurement by g lucometer (mass/volume) - 07/02/18 02:23 Capillary blood glucose measurement by glucometer (mas s/volume) 171 mg/dL 70-110 Complete blood count (CBC) with automate d white blood cell (WBC) differential - 07/20/18 18:30 Blood leukocytes automated count (number/volume) 19.1 10*3/uL 4.3-11.0 Blood erythrocytes automated count (number/volume) 6.46 10*6/uL 4.35-5.85 Venous blood hemoglobin measurement (mass/volume) 14.8 g/dL 11.5-16.0 Blood hematocrit (volume fraction) 47 % 35-52 Automated erythrocyte mean corpuscular volume 72 [ foz_us] 80-99 Automated erythrocyte mean corpuscular h emoglobin (mass per erythrocyte) 23 pg 25-34 Automated erythrocyte mean corpuscular h emoglobin concentration measurement (mass/volume) 32 g/dL 32-36 Automated erythrocyte distribution width ratio 19. 2 % 10.0- 14.5 Automated blood platelet count [...] 10*3 1.0-4.0 Blood monocytes automated count (number/volume) 0. 5 10*3 0.0-1.0 Automated eosinophil count 0.0 10*3/uL 0 .0-0.3 Automated blood basophil count (count/volume) 0.1 10*3/uL 0.0-0.1 Serum or plasma choriogonadotropin (preg rosa test) detection - 07/20/18 18:30 Serum or plasma choriogonadotropin ( test) de tection NEGATIVE NEGATIVE PT panel in platelet poor plasma by coag ulation assay - 07/20/18 18:30 Prothrombin time (PT) in platelet poor plasma by coagu lation assay 27.3 s 12.2-14.7 INR in platelet poor plasma or blood by coagulation as say 2.5 0.8-1.4 Activated partial thromboplastin time (a PTT) in platelet poor plasma bycoagulation assay - 07/20/18 18:30 Activated partial thromboplastin time (a PTT) in platelet poor plasma bycoagulation assay 39 s 24-35 Blood lactic acid measurement (moles/vol ume) - 07/20/18 18:30 Blood lactic acid measurement [...] 5-14 Serum or plasma urea nitrogen measurement (mass/volume ) 17 mg/dL 7-18 Serum or plasma creatinine measurement (mass/volume) 1.27 mg/dL 0.60-1.30 Serum or plasma urea nitrogen/creatinine mass ratio 13 NRG Serum or plasma creatinine measurement w ith calculation of estimated glomerular filtration rate 48 NRG Serum or plasma glucose measurement (mass/volume) 238 mg/dL 70-105 Serum or plasma calcium measurement (mass/volume) 10.6 mg/dL 8.5-10.1 Serum or plasma total bilirubin measurement (mass/volu me) 0.7 mg/dL 0.1-1.0 Serum or plasma alkaline phosphatase shady surement (enzymatic activity/volume) 98 U/L 40-136 Serum or plasma aspartate aminotransfera se measurement (enzymatic activity/volume) 22 U/L 5-34 Serum or plasma alanine aminotransferase measurement (enzymatic activity/volume) 17 U/L 0-55 Serum or plasma protein measurement (mass/volume) 8.4 g/dL 6.4-8.2 Serum or plasma albumin measurement (mass/volume) 4.8 g/dL 3.2-4.5 Magnesium - 07/20/18 18:30 Magnesium 2.0 mg/dL 1.8-2.4 Serum or plasma C reactive protein measu rement (mass/volume) - 07/20/18 18:30 Serum or plasma C reactive protein measurement (mass/v olume) 2.26 mg/dL 0.00-0.50 Serum heterophile antibody titer - 07/20 18:30 Serum heterophile antibody titer NEGATIVE NEGATIVE Blood manual differential performed dete ction - 07/20/18 18:30 Blood monocytes/100 leukocytes 5 % NRG Manual blood segmented neutrophils/100 leukocytes 85 % NRG Blood band neutrophils/100 leukocytes 1 % NRG Manual blood lymphocytes/100 leukocytes 8 % NRG Manual eosinophils/100 leukocytes in nose 0 % NRG Manual blood basophils/100 leukocytes 1 % NRG Blood erythrocyte morphology finding identification NORMAL NRG Serum or plasma troponin i.cardiac measu rement (mass/volume) - 07/20/18 18:30 Serum or plasma troponin i.cardiac measurement (mass/v olume) < ng/mL <0.028 Bacterial blood culture - 07/20/18 18:30 Bacterial blood culture NG NRG Bacterial blood culture - 07/20/18 18:58 QUANTITY OF GROWTH . NRG Bacterial blood culture SEE COMMEN NRG Influenza virus A and B antigen detectio n - 07/20/18 19:19 FLU RESULT NEGATIVE FOR INFLUENZA A AND B ANTIGENS BY IA NRG Capillary blood glucose measurement by g lucometer (mass/volume) - 07/20/18 19:52 Capillary blood glucose measurement by glucometer (mas s/volume) 172 mg/dL 70-110 Serum or plasma lactate measurement (mol es/volume) - 07/20/18 20:45 Serum or plasma lactate measurement (moles/volume) 2.00 mmol/L 0.50-2.00 Complete urinalysis with reflex to cultu re - 07/20/18 23:05 Urine color determination YELLOW NRG Urine clarity determination CLEAR NR G Urine pH measurement by test strip 5 5-9 Specific gravity of urine by test strip 1.010 1.016-1.022 Urine protein assay by test strip, semi-quantitative 2+ NEGATIVE Urine glucose detection by automated test strip 2+ NEGATIVE Erythrocytes detection in urine sediment by light micr oscopy NEGATIVE NEGATIVE Urine ketones detection by automated test strip 2+ NEGATIVE Urine nitrite detection by test strip NEGATIVE NEGATIVE Urine total bilirubin detection by test strip NEGA TIVE NEGATIVE Urine urobilinogen measurement by automated test strip (mass/volume) 1 mg/dL NORMAL Urine leukocyte esterase detection by dipstick 1+ NEGATIVE Automated urine sediment erythrocyte cou nt by microscopy (number/high power field) NONE NRG Automated urine sediment leukocyte count by microscopy (number/high power field) [HPF] NRG Bacteria detection in urine sediment by light microsco py TRACE NRG Squamous epithelial cells detection in u rine sediment by light microscopy 0-2 NRG Crystals detection in urine sediment by light microsco py NONE NRG Casts detection in urine sediment by light microscopy PRESENT NRG Mucus detection in urine sediment by light microscopy SMALL NRG Complete urinalysis with reflex to culture NO NRG Hyaline casts detection in urine sediment by light gregorio roscopy 10-25 NRG Urine drug screening test - 07/20/18 23: 05 Urine phencyclidine detection by screening method POSITIVE NEGATIVE Urine benzodiazepines detection by screening method POSITIVE NEGATIVE Urine cocaine detection NEGATIVE NEGATI VE Urine amphetamines detection by screening method N EGATIVE NEGATIVE Urine methamphetamine detection by screening method NEGATIVE NEGATIVE Urine cannabinoids detection by screening method P OSITIVE NEGATIVE Urine opiates detection by screening method POSITI VE NEGATIVE Urine barbiturates detection NEGATIVE N EGATIVE Screening urine tricyclic antidepressants detection POSITIVE NEGATIVE Urine methadone detection by screening method NEGA TIVE NEGATIVE Urine oxycodone detection POSITIVE NEGA TIVE Urine propoxyphene detection NEGATIVE N EGATIVE Bacterial urine culture - 07/20/18 23:05 Bacterial urine culture NG NRG Complete blood count (CBC) with automate d white blood cell (WBC) differential - 07/21/18 00:13 Blood leukocytes automated count (number/volume) 12.6 10*3/uL 4.3-11.0 Blood erythrocytes automated count (number/volume) 5.94 10*6/uL 4.35-5.85 Venous blood hemoglobin measurement (mass/volume) 14.0 g/dL 11.5-16.0 Blood hematocrit (volume fraction) 42 % 35-52 Automated erythrocyte mean corpuscular volume 70 [ foz_us] 80-99 Automated erythrocyte mean corpuscular h emoglobin (mass per erythrocyte) 24 pg 25-34 Automated erythrocyte mean corpuscular h emoglobin concentration measurement (mass/volume) 34 g/dL 32-36 Automated erythrocyte distribution width ratio 18. 1 % 10.0- 14.5 Automated blood platelet count [...] 10*3 1.0-4.0 Blood monocytes automated count (number/volume) 0. 8 10*3 0.0-1.0 Automated eosinophil count 0.0 10*3/uL 0 .0-0.3 Automated blood basophil count (count/volume) 0.0 10*3/uL 0.0-0.1 Serum or plasma creatine kinase measurem ent (enzymatic activity/volume) - 07/21/18 00:13 Serum or plasma creatine kinase measurem ent (enzymatic activity/volume) 307 U/L 29-168 Lipase - 07/21/18 00:13 Lipase 9 U/L 8-78 Complete blood count (CBC) with automate d white blood cell (WBC) differential - 09/04/18 21:29 Blood leukocytes automated count (number/volume) 16.0 10*3/uL 4.3-11.0 Blood erythrocytes automated count (number/volume) 5.77 10*6/uL 4.35-5.85 Venous blood hemoglobin measurement (mass/volume) 13.1 g/dL 11.5-16.0 Blood hematocrit (volume fraction) 41 % 35-52 Automated erythrocyte mean corpuscular volume 71 [ foz_us] 80-99 Automated erythrocyte mean corpuscular h emoglobin (mass per erythrocyte) 23 pg 25-34 Automated erythrocyte mean corpuscular h emoglobin concentration measurement (mass/volume) 32 g/dL 32-36 Automated erythrocyte distribution width ratio 18. 6 % 10.0- 14.5 Automated blood platelet count [...] 10*3 1.0-4.0 Blood monocytes automated count (number/volume) 0. 7 10*3 0.0-1.0 Automated eosinophil count 0.3 10*3/uL 0 .0-0.3 Automated blood basophil count (count/volume) 0.0 10*3/uL 0.0-0.1 PT panel in platelet poor plasma by coag ulation assay - 09/04/18 21:29 Prothrombin time (PT) in platelet poor plasma by coagu lation assay 16.5 s 12.2-14.7 INR in platelet poor plasma or blood by coagulation as say 1.3 0.8-1.4 Serum or plasma choriogonadotropin (preg rosa test) detection - 09/04/18 21:29 Serum or plasma choriogonadotropin ( test) de tection NEGATIVE NEGATIVE Comprehensive metabolic panel - 09/04/18 21:29 Serum or plasma sodium measurement (moles/volume) 140 mmol/L 135-145 Serum or plasma potassium measurement (moles/volume) 3.9 mmol/L 3.6-5.0 Serum or plasma chloride measurement (moles/volume) 105 mmol/L 98-107 Carbon dioxide 18 mmol/L 21-32 Serum or plasma anion gap determination (moles/volume) 17 mmol/L 5-14 Serum or plasma urea nitrogen measurement (mass/volume ) 18 mg/dL 7-18 Serum or plasma creatinine measurement (mass/volume) 0.86 mg/dL 0.60-1.30 Serum or plasma urea nitrogen/creatinine mass ratio 21 NRG Serum or plasma creatinine measurement w ith calculation of estimated glomerular filtration rate > NRG Serum or plasma glucose measurement (mass/volume) 258 mg/dL 70-105 Serum or plasma calcium measurement (mass/volume) 9.8 mg/dL 8.5-10.1 Serum or plasma total bilirubin measurement (mass/volu me) 0.5 mg/dL 0.1-1.0 Serum or plasma alkaline phosphatase shady surement (enzymatic activity/volume) 115 U/L 40-136 Serum or plasma aspartate aminotransfera se measurement (enzymatic activity/volume) 10 U/L 5-34 Serum or plasma alanine aminotransferase measurement (enzymatic activity/volume) 22 U/L 0-55 Serum or plasma protein measurement (mass/volume) 7.5 g/dL 6.4-8.2 Serum or plasma albumin measurement (mass/volume) 4.2 g/dL 3.2-4.5 CALCIUM CORRECTED 9.6 mg/dL 8.5-10.1 Lipase - 09/04/18 21:29 Lipase 12 U/L 8-78 Blood manual differential performed dete ction - 09/04/18 21:29 Blood monocytes/100 leukocytes 3 % NRG Manual blood segmented neutrophils/100 leukocytes 76 % NRG Manual blood lymphocytes/100 leukocytes 16 % NRG Manual eosinophils/100 leukocytes in nose 3 % NRG Blood lymphocytes variant/100 leukocytes 2 % NRG Blood erythrocyte morphology finding identification NORMAL NRG Urine drug screening test - 09/04/18 21: 57 Urine phencyclidine detection by screening method POSITIVE NEGATIVE Urine benzodiazepines detection by screening method POSITIVE NEGATIVE Urine cocaine detection NEGATIVE NEGATI VE Urine amphetamines detection by screening method N EGATIVE NEGATIVE Urine methamphetamine detection by screening method NEGATIVE NEGATIVE Urine cannabinoids detection by screening method P OSITIVE NEGATIVE Urine opiates detection by screening method POSITI VE NEGATIVE Urine barbiturates detection NEGATIVE N EGATIVE Screening urine tricyclic antidepressants detection POSITIVE NEGATIVE Urine methadone detection by screening method NEGA TIVE NEGATIVE Urine oxycodone detection NEGATIVE NEGA TIVE Urine propoxyphene detection NEGATIVE N EGATIVE Complete urinalysis with reflex to cultu re - 09/04/18 21:57 Urine color determination KELSEY NRG Urine clarity determination SLIGHTLY CLOUDY NRG Urine pH measurement by test strip 6 5-9 Specific gravity of urine by test strip 1.020 1.016-1.022 Urine protein assay by test strip, semi-quantitative 3+ NEGATIVE Urine glucose detection by automated test strip 3+ NEGATIVE Erythrocytes detection in urine sediment by light micr oscopy NEGATIVE NEGATIVE Urine ketones detection by automated test strip 2+ NEGATIVE Urine nitrite detection by test strip POSITIVE NEGATIVE Urine total bilirubin detection by test strip 1+ NEGATIVE Urine urobilinogen measurement by automated test strip (mass/volume) 4 mg/dL NORMAL Urine leukocyte esterase detection by dipstick 2+ NEGATIVE Automated urine sediment erythrocyte cou nt by microscopy (number/high power field) NONE NRG Automated urine sediment leukocyte count by microscopy (number/high power field) [HPF] NRG Bacteria detection in urine sediment by light microsco py FEW NRG Squamous epithelial cells detection in u rine sediment by light microscopy 5-10 NRG Crystals detection in urine sediment by light microsco py NONE NRG Casts detection in urine sediment by light microscopy PRESENT NRG Mucus detection in urine sediment by light microscopy LARGE NRG Complete urinalysis with reflex to culture YES NRG Hyaline casts detection in urine sediment by light gregorio roscopy 5-10 NRG Bacterial urine culture - 09/04/18 21:57 Bacterial urine culture 3 OR MORE NRG COLONY COUNT 50,000 CFU/ML NRG FTX;REPORTABLE (GRAM POSITIVE) SUGGESTING PROBABLE NRG FREE TEXT ENTRY 2 COLLECTION CONTAMINATION WITH SK IN WILI NRG FREE TEXT ENTRY 3 NO SUSCEPTIBILITY PERFORMED NRG Complete blood count (CBC) with automate d white blood cell (WBC) differential - 11/04/18 22:30 Blood leukocytes automated count (number/volume) 11.7 10*3/uL 4.3-11.0 Blood erythrocytes automated count (number/volume) 5.89 10*6/uL 4.35-5.85 Venous blood hemoglobin measurement (mass/volume) 12.5 g/dL 11.5-16.0 Blood hematocrit (volume fraction) 40 % 35-52 Automated erythrocyte mean corpuscular volume 68 [ foz_us] 80-99 Automated erythrocyte mean corpuscular h emoglobin (mass per erythrocyte) 21 pg 25-34 Automated erythrocyte mean corpuscular h emoglobin concentration measurement (mass/volume) 31 g/dL 32-36 Automated erythrocyte distribution width ratio 19. 9 % 10.0- 14.5 Automated blood platelet count (count/volume) 469 10*3/uL 130-400 Automated blood platelet mean volume measurement 9.4 [foz_us] 7.4-10.4 Automated blood neutrophils/100 leukocytes 67 % 42-75 Automated blood lymphocytes/100 leukocytes 24 % 12-44 Blood monocytes/100 leukocytes 6 % 0-12 Automated blood eosinophils/100 leukocytes 2 % 0-10 Automated blood basophils/100 leukocytes 0 % 0-10 Blood neutrophils automated count (number/volume) 7.9 10*3 1.8-7.8 Blood lymphocytes automated count (number/volume) 2.8 10*3 1.0-4.0 Blood monocytes automated count (number/volume) 0. 7 10*3 0.0-1.0 Automated eosinophil count 0.3 10*3/uL 0 .0-0.3 Automated blood basophil count (count/volume) 0.0 10*3/uL 0.0-0.1 Serum or plasma choriogonadotropin (preg rosa test) detection - 11/04/18 22:30 Serum or plasma choriogonadotropin ( test) de tection NEGATIVE NEGATIVE Comprehensive metabolic panel - 11/04/18 22:30 Serum or plasma sodium measurement (moles/volume) 136 mmol/L 135-145 Serum or plasma potassium measurement (moles/volume) 3.8 mmol/L 3.6-5.0 Serum or plasma chloride measurement (moles/volume) 105 mmol/L 98-107 Carbon dioxide 18 mmol/L 21-32 Serum or plasma anion gap determination (moles/volume) 13 mmol/L 5-14 Serum or plasma urea nitrogen measurement (mass/volume ) 8 mg/dL 7-18 Serum or plasma creatinine measurement (mass/volume) 0.78 mg/dL 0.60-1.30 Serum or plasma urea nitrogen/creatinine mass ratio 10 NRG Serum or plasma creatinine measurement w ith calculation of estimated glomerular filtration rate > NRG Serum or plasma glucose measurement (mass/volume) 186 mg/dL 70-105 Serum or plasma calcium measurement (mass/volume) 9.4 mg/dL 8.5-10.1 Serum or plasma total bilirubin measurement (mass/volu me) 0.5 mg/dL 0.1-1.0 Serum or plasma alkaline phosphatase shady surement (enzymatic activity/volume) 75 U/L 40-136 Serum or plasma aspartate aminotransfera se measurement (enzymatic activity/volume) 10 U/L 5-34 Serum or plasma alanine aminotransferase measurement (enzymatic activity/volume) 14 U/L 0-55 Serum or plasma protein measurement (mass/volume) 7.2 g/dL 6.4-8.2 Serum or plasma albumin measurement (mass/volume) 4.1 g/dL 3.2-4.5 CALCIUM CORRECTED 9.3 mg/dL 8.5-10.1 Magnesium - 11/04/18 22:30 Magnesium 1.6 mg/dL 1.8-2.4 Serum or plasma amylase measurement (enz ymatic activity/volume) - 11/04/18 22:30 Serum or plasma amylase measurement (enzymatic activit y/volume) 16 U/L 25-125 Lipase - 11/04/18 22:30 Lipase 5 U/L 8-78 PT panel in platelet poor plasma by coag ulation assay - 11/04/18 22:30 Prothrombin time (PT) in platelet poor plasma by coagu lation assay 14.3 s 12.2-14.7 INR in platelet poor plasma or blood by coagulation as say 1.1 0.8-1.4 Activated partial thromboplastin time (a PTT) in platelet poor plasma bycoagulation assay - 11/04/18 22:30 Activated partial thromboplastin time (a PTT) in platelet poor plasma bycoagulation assay 26 s 24-35 Serum or plasma acetaminophen measuremen t (mass/volume) - 11/04/18 22:30 Serum or plasma acetaminophen measurement (mass/volume ) < ug/mL 10-30 Serum or plasma ethanol measurement (mas s/volume) - 11/04/18 22:30 Serum or plasma ethanol measurement (mass/volume) < mg/dL <10 Urine drug screening test - 11/04/18 23: 05 Urine phencyclidine detection by screening method NEGATIVE NEGATIVE Urine benzodiazepines detection by screening method POSITIVE NEGATIVE Urine cocaine detection NEGATIVE NEGATI VE Urine amphetamines detection by screening method N EGATIVE NEGATIVE Urine methamphetamine detection by screening method NEGATIVE NEGATIVE Urine cannabinoids detection by screening method P OSITIVE NEGATIVE Urine opiates detection by screening method POSITI VE NEGATIVE Urine barbiturates detection NEGATIVE N EGATIVE Screening urine tricyclic antidepressants detection NEGATIVE NEGATIVE Urine methadone detection by screening method NEGA TIVE NEGATIVE Urine oxycodone detection POSITIVE NEGA TIVE Urine propoxyphene detection NEGATIVE N EGATIVE Complete urinalysis with reflex to cultu re - 11/04/18 23:05 Urine color determination YELLOW NRG Urine clarity determination CLEAR NR G Urine pH measurement by test strip 6 5-9 Specific gravity of urine by test strip 1.025 1.016-1.022 Urine protein assay by test strip, semi-quantitative 2+ NEGATIVE Urine glucose detection by automated test strip 3+ NEGATIVE Erythrocytes detection in urine sediment by light micr oscopy NEGATIVE NEGATIVE Urine ketones detection by automated test strip 1+ NEGATIVE Urine nitrite detection by test strip NEGATIVE NEGATIVE Urine total bilirubin detection by test strip NEGA TIVE NEGATIVE Urine urobilinogen measurement by automated test strip (mass/volume) NORMAL NORMAL Urine leukocyte esterase detection by dipstick 1+ NEGATIVE Automated urine sediment erythrocyte cou nt by microscopy (number/high power field) NONE NRG Automated urine sediment leukocyte count by microscopy (number/high power field) [HPF] NRG Bacteria detection in urine sediment by light microsco py MODERATE NRG Squamous epithelial cells detection in u rine sediment by light microscopy 2-5 NRG Crystals detection in urine sediment by light microsco py NONE NRG Casts detection in urine sediment by light microscopy NONE NRG Mucus detection in urine sediment by light microscopy LARGE NRG Complete urinalysis with reflex to culture YES NRG Bacterial urine culture - 11/04/18 23:05 Bacterial urine culture NG NRG Capillary blood glucose measurement by g lucometer (mass/volume) - 11/04/18 23:08 Capillary blood glucose measurement by glucometer (mas s/volume) 181 mg/dL 70-110 Complete blood count (CBC) with automate d white blood cell (WBC) differential - 02/23/19 20:52 Blood leukocytes automated count (number/volume) 10.9 10*3/uL 4.3-11.0 Blood erythrocytes automated count (number/volume) 5.99 10*6/uL 4.35-5.85 Venous blood hemoglobin measurement (mass/volume) 12.8 g/dL 11.5-16.0 Blood hematocrit (volume fraction) 43 % 35-52 Automated erythrocyte mean corpuscular volume 71 [ foz_us] 80-99 Automated erythrocyte mean corpuscular h emoglobin (mass per erythrocyte) 21 pg 25-34 Automated erythrocyte mean corpuscular h emoglobin concentration measurement (mass/volume) 30 g/dL 32-36 Automated erythrocyte distribution width ratio 18. 3 % 10.0- 14.5 Automated blood platelet count (count/volume) 396 10*3/uL 130-400 Automated blood platelet mean volume measurement 9.4 [foz_us] 7.4-10.4 Automated blood neutrophils/100 leukocytes 73 % 42-75 Automated blood lymphocytes/100 leukocytes 19 % 12-44 Blood monocytes/100 leukocytes 4 % 0-12 Automated blood eosinophils/100 leukocytes 2 % 0-10 Automated blood basophils/100 leukocytes 0 % 0-10 Blood neutrophils automated count (number/volume) 8.0 10*3 1.8-7.8 Blood lymphocytes automated count (number/volume) 2.1 10*3 1.0-4.0 Blood monocytes automated count (number/volume) 0. 5 10*3 0.0-1.0 Automated eosinophil count 0.2 10*3/uL 0 .0-0.3 Automated blood basophil count (count/volume) 0.0 10*3/uL 0.0-0.1 Serum or plasma choriogonadotropin (preg rosa test) detection - 02/23/19 20:52 Serum or plasma choriogonadotropin ( test) de tection NEGATIVE NEGATIVE PT panel in platelet poor plasma by coag ulation assay - 02/23/19 20:52 Prothrombin time (PT) in platelet poor plasma by coagu lation assay 12.6 s 12.2-14.7 INR in platelet poor plasma or blood by coagulation as say 0.9 0.8-1.4 Activated partial thromboplastin time (a PTT) in platelet poor plasma bycoagulation assay - 02/23/19 20:52 Activated partial thromboplastin time (a PTT) in platelet poor plasma bycoagulation assay 25 s 24-35 Comprehensive metabolic panel - 02/23/19 20:52 Serum or plasma sodium measurement (moles/volume) 139 mmol/L 135-145 Serum or plasma potassium measurement (moles/volume) 4.5 mmol/L 3.6-5.0 Serum or plasma chloride measurement (moles/volume) 107 mmol/L 98-107 Carbon dioxide 21 mmol/L 21-32 Serum or plasma anion gap determination (moles/volume) 11 mmol/L 5-14 Serum or plasma urea nitrogen measurement (mass/volume ) 11 mg/dL 7-18 Serum or plasma creatinine measurement (mass/volume) 0.64 mg/dL 0.60-1.30 Serum or plasma urea nitrogen/creatinine mass ratio 17 NRG Serum or plasma creatinine measurement w ith calculation of estimated glomerular filtration rate > NRG Serum or plasma glucose measurement (mass/volume) 206 mg/dL 70-105 Serum or plasma calcium measurement (mass/volume) 9.0 mg/dL 8.5-10.1 Serum or plasma total bilirubin measurement (mass/volu me) 0.2 mg/dL 0.1-1.0 Serum or plasma alkaline phosphatase shday surement (enzymatic activity/volume) 61 U/L 40-136 Serum or plasma aspartate aminotransfera se measurement (enzymatic activity/volume) 10 U/L 5-34 Serum or plasma alanine aminotransferase measurement (enzymatic activity/volume) 6 U/L 0-55 Serum or plasma protein measurement (mass/volume) 6.9 g/dL 6.4-8.2 Serum or plasma albumin measurement (mass/volume) 4.0 g/dL 3.2-4.5 CALCIUM CORRECTED 9.0 mg/dL 8.5-10.1 Lipase - 02/23/19 20:52 Lipase 13 U/L 8-78 Complete urinalysis with reflex to cultu re - 02/23/19 23:10 Urine color determination YELLOW NRG Urine clarity determination CLEAR NR G Urine pH measurement by test strip 7.0 5-9 Specific gravity of urine by test strip 1.025 1.016-1.022 Urine protein assay by test strip, semi-quantitative NEGATIVE NEGATIVE Urine glucose detection by automated test strip 1+ NEGATIVE Erythrocytes detection in urine sediment by light micr oscopy NEGATIVE NEGATIVE Urine ketones detection by automated test strip NE GATIVE NEGATIVE Urine nitrite detection by test strip NEGATIVE NEGATIVE Urine total bilirubin detection by test strip NEGA TIVE NEGATIVE Urine urobilinogen measurement by automated test strip (mass/volume) 0.2 mg/dL NORMAL Urine leukocyte esterase detection by dipstick NEG ATIVE NEGATIVE Automated urine sediment erythrocyte cou nt by microscopy (number/high power field) NONE NRG Automated urine sediment leukocyte count by microscopy (number/high power field) [HPF] NRG Bacteria detection in urine sediment by light microsco py TRACE NRG Squamous epithelial cells detection in u rine sediment by light microscopy 5-10 NRG Crystals detection in urine sediment by light microsco py NONE NRG Casts detection in urine sediment by light microscopy NONE NRG Mucus detection in urine sediment by light microscopy NONE NRG Complete urinalysis with reflex to culture NO NRG Complete blood count (CBC) with automate d white blood cell (WBC) differential - 03/11/19 17:50 Blood leukocytes automated count (number/volume) 12.5 10*3/uL 4.3-11.0 Blood erythrocytes automated count (number/volume) 6.05 10*6/uL 4.35-5.85 Venous blood hemoglobin measurement (mass/volume) 13.2 g/dL 11.5-16.0 Blood hematocrit (volume fraction) 43 % 35-52 Automated erythrocyte mean corpuscular volume 71 [ foz_us] 80-99 Automated erythrocyte mean corpuscular h emoglobin (mass per erythrocyte) 22 pg 25-34 Automated erythrocyte mean corpuscular h emoglobin concentration measurement (mass/volume) 31 g/dL 32-36 Automated erythrocyte distribution width ratio 17. 9 % 10.0- 14.5 Automated blood platelet count (count/volume) 390 10*3/uL 130-400 Automated blood platelet mean volume measurement 9.0 [foz_us] 7.4-10.4 Automated blood neutrophils/100 leukocytes 82 % 42-75 Automated blood lymphocytes/100 leukocytes 13 % 12-44 Blood monocytes/100 leukocytes 3 % 0-12 Automated blood eosinophils/100 leukocytes 1 % 0-10 Automated blood basophils/100 leukocytes 1 % 0-10 Blood neutrophils automated count (number/volume) 10.3 10*3 1.8-7.8 Blood lymphocytes automated count (number/volume) 1.6 10*3 1.0-4.0 Blood monocytes automated count (number/volume) 4. 0 10*3 0.0-1.0 Automated eosinophil count 0.2 10*3/uL 0 .0-0.3 Automated blood basophil count (count/volume) 0.1 10*3/uL 0.0-0.1 Comprehensive metabolic panel - 03/11/19 17:50 Serum or plasma sodium measurement (moles/volume) 138 mmol/L 135-145 Serum or plasma potassium measurement (moles/volume) 4.3 mmol/L 3.6-5.0 Serum or plasma chloride measurement (moles/volume) 104 mmol/L 98-107 Carbon dioxide 19 mmol/L 21-32 Serum or plasma anion gap determination (moles/volume) 15 mmol/L 5-14 Serum or plasma urea nitrogen measurement (mass/volume ) 14 mg/dL 7-18 Serum or plasma creatinine measurement (mass/volume) 0.66 mg/dL 0.60-1.30 Serum or plasma urea nitrogen/creatinine mass ratio 21 NRG Serum or plasma creatinine measurement w ith calculation of estimated glomerular filtration rate > NRG Serum or plasma glucose measurement (mass/volume) 253 mg/dL 70-105 Serum or plasma calcium measurement (mass/volume) 9.2 mg/dL 8.5-10.1 Serum or plasma total bilirubin measurement (mass/volu me) 0.3 mg/dL 0.1-1.0 Serum or plasma alkaline phosphatase shady surement (enzymatic activity/volume) 63 U/L 40-136 Serum or plasma aspartate aminotransfera se measurement (enzymatic activity/volume) 11 U/L 5-34 Serum or plasma alanine aminotransferase measurement (enzymatic activity/volume) 9 U/L 0-55 Serum or plasma protein measurement (mass/volume) 7.1 g/dL 6.4-8.2 Serum or plasma albumin measurement (mass/volume) 4.1 g/dL 3.2-4.5 CALCIUM CORRECTED 9.1 mg/dL 8.5-10.1 Lipase - 03/11/19 17:50 Lipase 10 U/L 8-78 Complete urinalysis with reflex to cultu re - 03/11/19 18:50 Urine color determination YELLOW NRG Urine clarity determination CLEAR NR G Urine pH measurement by test strip 5.5 5-9 Specific gravity of urine by test strip > 1.016-1.022 Urine protein assay by test strip, semi-quantitative TRACE NEGATIVE Urine glucose detection by automated test strip 2+ NEGATIVE Erythrocytes detection in urine sediment by light micr oscopy NEGATIVE NEGATIVE Urine ketones detection by automated test strip 1+ NEGATIVE Urine nitrite detection by test strip NEGATIVE NEGATIVE Urine total bilirubin detection by test strip 1+ NEGATIVE Urine urobilinogen measurement by automated test strip (mass/volume) 0.2 mg/dL NORMAL Urine leukocyte esterase detection by dipstick NEG ATIVE NEGATIVE Automated urine sediment erythrocyte cou nt by microscopy (number/high power field) NONE NRG Automated urine sediment leukocyte count by microscopy (number/high power field) RARE NRG Bacteria detection in urine sediment by light microsco py FEW NRG Squamous epithelial cells detection in u rine sediment by light microscopy 25-50 NRG Crystals detection in urine sediment by light microsco py NONE NRG Casts detection in urine sediment by light microscopy NONE NRG Mucus detection in urine sediment by light microscopy SMALL NRG Complete urinalysis with reflex to culture NO NRG Complete urinalysis with reflex to cultu re - 11/24/19 11:11 Urine color determination YELLOW NRG Urine clarity determination CLEAR NR G Urine pH measurement by test strip 6.0 5-9 Specific gravity of urine by test strip 1.025 1.016-1.022 Urine protein assay by test strip, semi-quantitative NEGATIVE NEGATIVE Urine glucose detection by automated test strip 3+ NEGATIVE Erythrocytes detection in urine sediment by light micr oscopy NEGATIVE NEGATIVE Urine ketones detection by automated test strip NE GATIVE NEGATIVE Urine nitrite detection by test strip NEGATIVE NEGATIVE Urine total bilirubin detection by test strip NEGA TIVE NEGATIVE Urine urobilinogen measurement by automated test strip (mass/volume) 0.2 mg/dL < = 1.0 Urine leukocyte esterase detection by dipstick NEG ATIVE NEGATIVE Automated urine sediment erythrocyte cou nt by microscopy (number/high power field) RARE NRG Automated urine sediment leukocyte count by microscopy (number/high power field) RARE NRG Bacteria detection in urine sediment by light microsco py FEW NRG Squamous epithelial cells detection in u rine sediment by light microscopy 0-2 NRG Crystals detection in urine sediment by light microsco py NONE NRG Casts detection in urine sediment by light microscopy NONE NRG Mucus detection in urine sediment by light microscopy NEGATIVE NRG Complete urinalysis with reflex to culture YES NRG Yeast detection in urine sediment by light microscopy FEW NRG Urine drug screening test - 11/24/19 11: 11 Urine phencyclidine detection by screening method NEGATIVE NEGATIVE Urine benzodiazepines detection by screening method NEGATIVE NEGATIVE Urine cocaine detection NEGATIVE NEGATI VE Urine amphetamines detection by screening method N EGATIVE NEGATIVE Urine methamphetamine detection by screening method NEGATIVE NEGATIVE Urine cannabinoids detection by screening method N EGATIVE NEGATIVE Urine opiates detection by screening method NEGATI VE NEGATIVE Urine barbiturates detection NEGATIVE N EGATIVE Screening urine tricyclic antidepressants detection POSITIVE NEGATIVE Urine methadone detection by screening method NEGA TIVE NEGATIVE Urine oxycodone detection NEGATIVE NEGA TIVE Urine propoxyphene detection NEGATIVE N EGATIVE Complete blood count (CBC) with automate d white blood cell (WBC) differential - 11/24/19 11:14 Blood leukocytes automated count (number/volume) 13.6 10*3/uL 4.3-11.0 Blood erythrocytes automated count (number/volume) 5.92 10*6/uL 4.35-5.85 Venous blood hemoglobin measurement (mass/volume) 13.8 g/dL 11.5-16.0 Blood hematocrit (volume fraction) 43 % 35-52 Automated erythrocyte mean corpuscular volume 73 [ foz_us] 80-99 Automated erythrocyte mean corpuscular h emoglobin (mass per erythrocyte) 23 pg 25-34 Automated erythrocyte mean corpuscular h emoglobin concentration measurement (mass/volume) 32 g/dL 32-36 Automated erythrocyte distribution width ratio 18. 1 % 10.0- 14.5 Automated blood platelet count (count/volume) 344 10*3/uL 130-400 Automated blood platelet mean volume measurement 9.5 [foz_us] 7.4-10.4 Automated blood neutrophils/100 leukocytes 66 % 42-75 Automated blood lymphocytes/100 leukocytes 25 % 12-44 Blood monocytes/100 leukocytes 6 % 0-12 Automated blood eosinophils/100 leukocytes 4 % 0-10 Automated blood basophils/100 leukocytes 0 % 0-10 Blood neutrophils automated count (number/volume) 8.9 10*3 1.8-7.8 Blood lymphocytes automated count (number/volume) 3.3 10*3 1.0-4.0 Blood monocytes automated count (number/volume) 0. 8 10*3 0.0-1.0 Automated eosinophil count 0.5 10*3/uL 0 .0-0.3 Automated blood basophil count (count/volume) 0.0 10*3/uL 0.0-0.1 Comprehensive metabolic panel - 11/24/19 11:14 Serum or plasma sodium measurement (moles/volume) 138 mmol/L 135-145 Serum or plasma potassium measurement (moles/volume) 4.3 mmol/L 3.6-5.0 Serum or plasma chloride measurement (moles/volume) 104 mmol/L 98-107 Carbon dioxide 23 mmol/L 21-32 Serum or plasma anion gap determination (moles/volume) 11 mmol/L 5-14 Serum or plasma urea nitrogen measurement (mass/volume ) 14 mg/dL 7-18 Serum or plasma creatinine measurement (mass/volume) 0.81 mg/dL 0.60-1.30 Serum or plasma urea nitrogen/creatinine mass ratio 17 NRG Serum or plasma creatinine measurement w ith calculation of estimated glomerular filtration rate > NRG Serum or plasma glucose measurement (mass/volume) 290 mg/dL 70-105 Serum or plasma calcium measurement (mass/volume) 9.6 mg/dL 8.5-10.1 Serum or plasma total bilirubin measurement (mass/volu me) 0.3 mg/dL 0.1-1.0 Serum or plasma alkaline phosphatase shady surement (enzymatic activity/volume) 69 U/L 40-136 Serum or plasma aspartate aminotransfera se measurement (enzymatic activity/volume) 15 U/L 5-34 Serum or plasma alanine aminotransferase measurement (enzymatic activity/volume) 19 U/L 0-55 Serum or plasma protein measurement (mass/volume) 7.3 g/dL 6.4-8.2 Serum or plasma albumin measurement (mass/volume) 4.0 g/dL 3.2-4.5 CALCIUM CORRECTED 9.6 mg/dL 8.5-10.1 Serum or plasma choriogonadotropin (preg rosa test) detection - 11/24/19 11:14 Serum or plasma choriogonadotropin ( test) de tection NEGATIVE NEGATIVE Encounters ACCT No. Visit Date/Time Discharge Status Pt. Type Provider Facility Loc./Unit Complaint [id number] 03/11/2019 17:41:00 21:02:00 DIS Emergency HILARY VALDEZ MD [facility] ER FS ABD PAIN [id number] 02/23/2019 20:43:00 00:25:00 DIS Emergency HILARY VALDEZ MD [facility] ER FS ABD PAIN [id number] 11/04/2018 22:24:00 01:15:00 DIS Emergency MUNA LINK DO a [facility] ER FLANK PAIN [id number] 09/04/2018 21:24:00 22:52:00 DIS Emergency JORGE THORNTON APRN [facility] ER N/V/D [id number] 07/20/2018 18:15:00 01:30:00 DIS Emergency WILIAM DELGADO MD [facility] ER ABD PAIN [id number] 07/01/2018 23:08:00 019 02:46:00 DIS Emergency REZA LLAMAS, IBIS Quintero [facility] ER ABD PAIN [id number] 06/03/2018 10:07:00 019 11:58:00 DIS Emergency JORGE THORNTON APRN [facility] ER ABD PAIN [id number] 05/26/2018 11:14:00 018 14:39:00 DIS Emergency TODD SCHMIDT [facility] ER SEIZURE [id number] 08/21/2015 19:55:00 016 22:59:00 DIS Emergency MUNA LINK DO [facility] ER ABDOMINAL PAIN [id number] 11/24/2019 11:27:00 Document Registration
--- NOTE | 2019-11-24 12:24 | Diagnostic Imaging Report ---
INDICATION: Left leg swelling. TECHNIQUE: The left leg venous Doppler study was performed in the routine fashion with color flow Doppler and waveform analysis. FINDINGS: The left common femoral vein, profunda femoris vein, and SFV are patent and compressible. The left popliteal vein and visualized portions of the tibial veins are patent. There is superficial thrombosis of the greater saphenous vein beginning just below the junction with the common femoral vein. There appears to be thrombus in the left lesser saphenous vein as well. IMPRESSION: No evidence of thrombus in the deep venous system. There is, however, evidence of superficial venous thrombosis involving the greater saphenous vein over a long segment as well as in the lesser saphenous vein. Dictated by: Dictated on workstation # [id number]
[2019-11-24] MEDS ORDERED: FLUC150T PO (12:30)
[2019-11-24 12:39] VITALS: BP 149/86
== END 2019-11-24 12:40 | disposition home or self-care (01) ==
LOC: EDUNIT# 10:51 → ER 10:53
DX: I82.812 Embolism and thrombosis of superficial veins of left lower extremity (principal); Z86.711 Personal history of pulmonary embolism; Z86.73 Personal history of transient ischemic attack (TIA), and cerebral infarction without residual deficits; Z88.8 Allergy status to other drugs, medicaments and biological substances; Z79.899 Other long term (current) drug therapy; Z79.01 Long term (current) use of anticoagulants; Z87.891 Personal history of nicotine dependence; E78.00 Pure hypercholesterolemia, unspecified; I10 Essential (primary) hypertension; N80.9 Endometriosis, unspecified; E28.2 Polycystic ovarian syndrome; K21.9 Gastro-esophageal reflux disease without esophagitis; G25.81 Restless legs syndrome; M79.10 Myalgia, unspecified site; E66.01 Morbid (severe) obesity due to excess calories; E11.9 Type 2 diabetes mellitus without complications; Z79.4 Long term (current) use of insulin; F41.9 Anxiety disorder, unspecified; F32.9 Major depressive disorder, single episode, unspecified; F91.3 Oppositional defiant disorder
CPT/HCPCS: 36415; 80053; 80306; 81000; 84703; 85025; 87088; 96374